=== PATIENT | female | born 1950 | race Caucasian/White ===

== ENCOUNTER 2020-02-23 06:19 | Outpatient (REF) | payer MEDICARE, SELFPAY ==
[2020-02-23 12:13] LABS: Alanine Aminotransferase 18 U/L (0-31); Albumin Level 4.1 g/dL (3.5-5.0); Alkaline Phosphatase 69 U/L (39-117); Anion Gap 14 (12-20); Aspartate Amino Transferase 15 U/L (5-31); Bilirubin Total 0.2 mg/dL (0.0-1.0); Blood Urea Nitrogen 15 mg/dL (9-16); Carbon Dioxide 27 mmol/L (22-29); Chloride 104 mmol/L (96-108); Cholesterol 202 mg/dL; Estimated Glomerular Filt Rate > 60; Glucose Fasting 152 mg/dL (60-99); HDL Cholesterol 55 mg/dL; LDL Cholesterol Calculated 119 mg/dl; Potassium 4.4 mmol/l (3.3-5.1); Sodium 141 mmol/L (135-145); Total Protein 6.9 g/dL (6.5-8.0); Triglycerides 140 mg/dL
[2020-02-23 12:19] LABS: Estimated Average Glucose 192 mg/dL; Hemoglobin A1c % 8.3 %
[2020-02-23 12:33] LABS: Creatinine Urine 31.28 mg/dL; Microalbum/Creatinine Ratio Ur 15.9 ug/mg cr
== END 2020-02-23 06:20 | disposition home or self-care (01) ==
LOC: HO.HMGCLDS 06:19
PROVIDERS: PCP Internal Medicine; Visit Provider Internal Medicine
DX: E11.9 Type 2 diabetes mellitus without complications (principal); E78.2 Mixed hyperlipidemia; I10 Essential (primary) hypertension
CPT/HCPCS: 80053; 80061; 82043; 83036

== ENCOUNTER 2020-10-29 16:30 | Outpatient (REF) | payer MEDICARE, SELFPAY ==
--- NOTE | ~2020-10-29 | XR_ITS ---
EXAMINATION: XR ANKLE, RIGHT. XR FOOT, RIGHT. CLINICAL INFORMATION: Right ankle and foot pain COMPARISON: None TECHNIQUE: 3 views of the right ankle. 3 views of the right foot. FINDINGS: There is a minimally displaced avulsion fracture at the base of the 5th metatarsal. The ankle mortise is preserved with no acute tibiotalar fracture. Mild degenerative changes of the 1st MTP joint and midfoot. Chronic degenerative calcification of the distal Achilles tendon with insertional enthesopathy. Prominent heel spur. XR/XR ankle RT min 3V IMPRESSION: Minimally displaced avulsion fracture at the base of the 5th metatarsal. No additional fractures.
--- NOTE | ~2020-10-29 | XR_ITS ---
EXAMINATION: XR ANKLE, RIGHT. XR FOOT, RIGHT. CLINICAL INFORMATION: Right ankle and foot pain COMPARISON: None TECHNIQUE: 3 views of the right ankle. 3 views of the right foot. FINDINGS: There is a minimally displaced avulsion fracture at the base of the 5th metatarsal. The ankle mortise is preserved with no acute tibiotalar fracture. Mild degenerative changes of the 1st MTP joint and midfoot. Chronic degenerative calcification of the distal Achilles tendon with insertional enthesopathy. Prominent heel spur. XR/XR foot RT min 3V IMPRESSION: Minimally displaced avulsion fracture at the base of the 5th metatarsal. No additional fractures.
== END 2020-10-29 16:31 | disposition home or self-care (01) ==
LOC: HO.HMGCX 16:30
PROVIDERS: PCP Internal Medicine; Visit Provider Hospitalist
DX: M25.571 Pain in right ankle and joints of right foot (principal)
CPT/HCPCS: 73610; 73630

== ENCOUNTER 2020-11-11 07:23 | Outpatient (REF) | payer MEDICARE, SELFPAY ==
[2020-11-11 11:43] LABS: Creatinine Urine 49.53 mg/dL; Microalbum/Creatinine Ratio Ur 62.5 ug/mg cr
[2020-11-11 11:52] LABS: Hematocrit 35.8 % (37-47); Hemoglobin 11.3 g/dl (12.0-16.0); Mean Corpuscular HGB Conc 31.6 g/dl (31.0-35.0); Mean Corpuscular Hemoglobin 27.5 pg (27.0-33.0); Mean Corpuscular Volume 87.1 fL (80-98); Mean Platelet Volume 11.2 fL (9.4-12.3); Platelet Count 219 X10*3/uL (160-400); Red Blood Count 4.11 X10*6/uL (4.20-5.50); Red Cell Distribution Width 12.8 % (11.0-16.0); White Blood Count 4.6 X10*3/uL (4.8-10.8)
[2020-11-11 11:55] LABS: Alanine Aminotransferase 16 U/L (0-31); Alkaline Phosphatase 72 U/L (39-117); Anion Gap 13 (12-20); Aspartate Amino Transferase 16 U/L (5-31); Bilirubin Total 0.5 mg/dL (0.0-1.0); Blood Urea Nitrogen 15 mg/dL (9-16); Calcium 9.8 mg/dL (8.4-10.2); Carbon Dioxide 24 mmol/L (22-29); Chloride 108 mmol/L (96-108); Cholesterol 202 mg/dL; Estimated Glomerular Filt Rate > 60; Glucose Fasting 113 mg/dL (60-99); HDL Cholesterol 51 mg/dL; LDL Cholesterol Calculated 121 mg/dl; Potassium 4.4 mmol/L (3.3-5.1); Sodium 141 mmol/L (135-145); Total Protein 6.7 g/dL (6.5-8.0); Triglycerides 152 mg/dL
[2020-11-11 11:56] LABS: Estimated Average Glucose 194 mg/dL; Hemoglobin A1c % 8.4 %
== END 2020-11-11 07:24 | disposition home or self-care (01) ==
LOC: HO.HMGCLDS 07:23
PROVIDERS: PCP Internal Medicine; Visit Provider Internal Medicine
DX: E11.9 Type 2 diabetes mellitus without complications (principal); E78.5 Hyperlipidemia, unspecified; I10 Essential (primary) hypertension
CPT/HCPCS: 36415; 80053; 80061; 82043; 83036; 85027

== ENCOUNTER 2021-02-04 12:27 | Outpatient (REF) | payer MEDICARE, SELFPAY ==
--- NOTE | ~2021-02-04 | MM_ITS ---
EXAMINATION: MM SCREENING DIGITAL BREAST TOMOSYNTHESIS, BILATERAL CLINICAL INFORMATION: Screening. Asymptomatic. The lifetime risk of breast cancer based on the Tyrer-Cuzick Model is 10%. COMPARISON: Mammography: December 23, 2013 and studies dating back to July 17, 2011 TECHNIQUE: Digital breast tomosynthesis is performed in both the craniocaudal and mediolateral oblique views along with computer-aided detection (CAD). Synthesized 2D images are generated from the tomosynthesis. FINDINGS: There are scattered areas of fibroglandular density (ACR BI-RADS breast composition Category b). There are no significant masses, abnormal calcifications, or other abnormalities. MM/MM tomosynthesis screening BI IMPRESSION: There are no significant changes from prior study. ASSESSMENT: BI-RADS 1: Negative RECOMMENDATION: Routine annual mammography screening. This patient's information was entered into a reminder system with a target due date for their next mammogram.
== END 2021-02-04 12:28 | disposition home or self-care (01) ==
LOC: HO.MAMMO 12:27
PROVIDERS: PCP Internal Medicine; Visit Provider Internal Medicine
DX: Z12.31 Encounter for screening mammogram for malignant neoplasm of breast (principal)
CPT/HCPCS: 77063; 77067

== ENCOUNTER 2021-02-07 08:54 | Outpatient (REF) | payer MEDICARE, SELFPAY ==
[2021-02-07 11:55] LABS: Estimated Average Glucose 186 mg/dL; Hemoglobin A1c % 8.1 %
[2021-02-07 12:11] LABS: Alanine Aminotransferase 17 U/L (0-31); Anion Gap 13 (12-20); Aspartate Amino Transferase 16 U/L (5-31); Bilirubin Total 0.6 mg/dL (0.0-1.0); Blood Urea Nitrogen 13 mg/dL (9-16); Calcium 9.5 mg/dL (8.4-10.2); Carbon Dioxide 26 mmol/L (22-29); Chloride 105 mmol/L (96-108); Cholesterol 222 mg/dL; Estimated Glomerular Filt Rate > 60; Glucose Fasting 166 mg/dL (60-99); Potassium 4.4 mmol/L (3.3-5.1); Sodium 140 mmol/L (135-145); Total Protein 6.8 g/dL (6.5-8.0); Triglycerides 180 mg/dL
[2021-02-07 12:12] LABS: Alkaline Phosphatase 63 U/L (39-117); HDL Cholesterol 53 mg/dL; LDL Cholesterol Calculated 133 mg/dl
[2021-02-07 12:15] LABS: TSH reflex Free T4 2.02 uIU/mL (0.32-4.0)
[2021-02-07 12:20] LABS: Creatinine Urine 42.01 mg/dL; Microalbum/Creatinine Ratio Ur 16.6 ug/mg cr
== END 2021-02-07 08:55 | disposition home or self-care (01) ==
LOC: HO.HMGCLDS 08:54
PROVIDERS: PCP Internal Medicine; Visit Provider Internal Medicine
DX: E11.9 Type 2 diabetes mellitus without complications (principal); E78.5 Hyperlipidemia, unspecified
CPT/HCPCS: 36415; 80053; 80061; 82043; 83036; 84443

== ENCOUNTER 2021-03-21 10:40 | Outpatient (REF) | payer MEDICARE, SELFPAY ==
--- NOTE | 2021-03-23 13:37 | MHC.AU.AHA ---
Adult Audiological Evaluation Date of Visit: 03/21/21 Reason for Appointment: History of hearing loss. Patient first noticed hearing difficulty approximately 8 years ago. There is an extensive family history of hearing loss. 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 History: No Medical History: Medical History: Diabetes Medication List: Metformin, Multivitamin, Vitamin C, Vitamin D3, Vitamin B12 Hearing Instrument History- Right Ear: Marketing Finance Specialist: [employer] Model: Nera2 Pro RITE Serial Number: [id number] Dispensed By: [facility] Hearing Instrument History- Left Ear: Marketing Finance Specialist: Oticon Model: Nera2 Pro RITE Serial Number: [id number] Dispensed By: [facility] Otoscopy: Right Ear: Unremarkable Left Ear: Unremarkable Hearing Evaluation: Transducer(s) Used: Insert Earphones Method: Conventional Audiometry Stimuli Used: Pure Tones Right Ear: Description of Hearing: Moderate to moderately-severe sensorineural hearing loss Left Ear: Description of Hearing: Mild to moderately-severe sensorineural hearing loss Speech Recognition Threshold (SRT): Method Used: Recorded Lists Stimuli Used: Spondee Words Right Ear: 45 dBHL Left Ear: 35 dBHL Word Discrimination: Method: Recorded Lists Word Lists Used: W-22 Right Ear: 88% at 75 dBHL Left Ear: 84% at 75 dBHL Most Comfortable Level (MCL): Right Ear: 75 dBHL Left Ear: 75 dBHL Recommendations: Audiological re-evaluation in one year. See Hearing Aid Follow-Up note for more information. Diagnosis: Primary Diagnosis: H90.3 Bilateral Sensorineural Hearing Loss Signature: Provider: Damari Lopez, CCC-A
--- NOTE | 2021-03-23 13:40 | MHC.AU.HFU ---
Hearing Instrument Follow-Up- Binaural Date of Visit: 03/21/21 Right Ear: Occupational Therapist Assistant: [employer]on Model: Nera2 Pro RITE Serial Number: [id number] Type of Dome: 8mm Goyal Double Vent Type of Wax Guard: MiniFit ProWax Dispensed By: [facility] Left Ear: Occupational Therapist Assistant: Oticon Model: Nera2 Pro RITE Serial Number: [id number] Type of Dome: 8mm Goyal Double Vent Type of Wax Guard: MiniFit ProWax Dispensed By: [facility] Follow-Up Summary: Patient was seen for an audiological evaluation. She formerly went to [facility]. She would like to transfer her hearing aid care to our clinic. She reports that she does not always wear the hearing aids consistently, but has been feeling she needs to wear them more often. She has custom canal lock molds that cause discomfort after wearing them for several hours. Custom molds were replaced with size 8mm goyal double vent domes. Patient reported the domes were much more comfortable. Current hearing aid programming was read into QThru and saved as a baseline. The hearing aid programming was then updated with today's hearing test results. Acoustic settings changed to reflect domes instead of molds. Patient was pleased with the adjustments. Recommendations: Hearing instrument follow-up or maintenance as needed. Please contact our clinic with any questions or concerns. Paid $185 transfer of care fee. Diagnosis Code(s): Primary Diagnosis: H90.3 Bilateral Sensorineural Hearing Loss Signature: Provider: Damari Lopez, SAGE-A
== END 2021-03-21 10:41 | disposition home or self-care (01) ==
LOC: HO.SH 10:40
PROVIDERS: Visit Provider Internal Medicine
DX: Z46.1 Encounter for fitting and adjustment of hearing aid (principal); H90.3 Sensorineural hearing loss, bilateral
CPT/HCPCS: 92557; V5011

== ENCOUNTER 2021-04-28 11:12 | Outpatient (REF) | payer MEDICARE, SELFPAY ==
[2021-04-28 14:31] LABS: Binax Internal Control QC Valid; Binax Lot number: 9864; Binax Now Covid-19 Ag Negative (Negative)
== END 2021-04-28 11:13 | disposition home or self-care (01) ==
LOC: HO.LAB 11:12
PROVIDERS: Visit Provider Internal Medicine
DX: Z20.822 Contact with and (suspected) exposure to COVID-19 (principal)
CPT/HCPCS: C9803

== ENCOUNTER 2021-04-29 08:39 | Outpatient (REF) | payer MEDICARE, SELFPAY ==
[2021-05-01 15:12] LABS: TS Negative Control Passed; TS Panel A 0; TS Panel B 0; TS Positive Control Passed; TSpotTB Negative (Negative)
== END 2021-04-29 08:40 | disposition home or self-care (01) ==
LOC: HO.HMGCLDS 08:39
PROVIDERS: PCP Internal Medicine; Visit Provider Internal Medicine
DX: Z00.00 Encounter for general adult medical examination without abnormal findings (principal); Z11.1 Encounter for screening for respiratory tuberculosis
CPT/HCPCS: 36415; 86481

== ENCOUNTER 2021-05-09 14:40 | Outpatient (REF) | payer MEDICARE, SELFPAY ==
--- NOTE | ~2021-05-09 | XR_ITS ---
EXAMINATION: XR CHEST CLINICAL INFORMATION: Pneumonia. Unspecified organism. COMPARISON: Chest 10/08/2018 TECHNIQUE: 2 views of the chest were obtained. FINDINGS: No significant abnormality is noted involving the heart, lungs, mediastinum, bony thorax or soft tissues. XR/XR chest 2V IMPRESSION: Platelike atelectasis right middle lobe.
== END 2021-05-09 14:41 | disposition home or self-care (01) ==
LOC: HO.HMGCX 14:40
PROVIDERS: PCP Internal Medicine; Visit Provider Internal Medicine
DX: J18.9 Pneumonia, unspecified organism (principal)
CPT/HCPCS: 71046

== ENCOUNTER 2021-05-24 08:49 | Outpatient (REF) | payer MEDICARE, SELFPAY ==
[2021-05-24 11:41] LABS: Hematocrit 35.3 % (37.0-47.0); Hemoglobin 11.1 g/dl (12.0-16.0); Mean Corpuscular HGB Conc 31.4 g/dl (31.0-35.0); Mean Corpuscular Hemoglobin 27.2 pg (27.0-33.0); Mean Corpuscular Volume 86.5 fL (80.0-98.0); Mean Platelet Volume 10.4 fL (9.4-12.3); Platelet Count 256 X10*3/uL (160-400); Red Blood Count 4.08 X10*6/uL (4.20-5.50); Red Cell Distribution Width 13.2 % (11.0-16.0); White Blood Count 3.8 X10*3/uL (4.8-10.8)
[2021-05-24 11:44] LABS: Estimated Average Glucose 192 mg/dL; Hemoglobin A1c % 8.3 %
[2021-05-24 12:05] LABS: Alanine Aminotransferase 16 U/L (0-31); Alkaline Phosphatase 60 U/L (39-117); Anion Gap 12 (12-20); Aspartate Amino Transferase 18 U/L (5-31); Bilirubin Total 0.8 mg/dL (0.0-1.0); Blood Urea Nitrogen 10 mg/dL (9-16); Calcium 9.4 mg/dL (8.4-10.2); Carbon Dioxide 27 mmol/L (22-29); Chloride 105 mmol/L (96-108); Cholesterol 239 mg/dL; Estimated Glomerular Filt Rate > 60; Glucose Fasting 138 mg/dL (60-99); HDL Cholesterol 51 mg/dL; LDL Cholesterol Calculated 153 mg/dl; Sodium 140 mmol/L (135-145); Total Protein 7.1 g/dL (6.5-8.0); Triglycerides 179 mg/dL
[2021-05-24 12:18] LABS: Creatinine Urine 12.92 mg/dL; Microalbumin Urine < 5.0 mg/L
== END 2021-05-24 08:50 | disposition home or self-care (01) ==
LOC: HO.HMGCLDS 08:49
PROVIDERS: Visit Provider Internal Medicine
DX: E78.5 Hyperlipidemia, unspecified (principal); E11.9 Type 2 diabetes mellitus without complications
CPT/HCPCS: 36415; 80053; 80061; 82043; 83036; 85027

== ENCOUNTER 2021-07-28 11:18 | Outpatient (REF) | payer SELFPAY | END 2021-07-28 11:19 | disposition home or self-care (01) | LOC: HO.HAP 11:18 | PROVIDERS: Visit Provider Internal Medicine | DX: Z46.1 Encounter for fitting and adjustment of hearing aid (principal) | CPT/HCPCS: V5267 ==

== ENCOUNTER 2022-02-13 06:35 | Outpatient (REF) | payer BC, SELFPAY ==
[2022-02-13 12:18] LABS: Alanine Aminotransferase 17 U/L (0-31); Albumin Level 4.1 g/dL (3.5-5.0); Alkaline Phosphatase 67 U/L (39-117); Anion Gap 16 (12-20); Aspartate Amino Transferase 16 U/L (5-31); Bilirubin Total 0.3 mg/dL (0.0-1.0); Blood Urea Nitrogen 14 mg/dL (9-16); Calcium 9.7 mg/dL (8.4-10.2); Carbon Dioxide 25 mmol/L (22-29); Chloride 106 mmol/L (96-108); Cholesterol 216 mg/dL; Estimated Glomerular Filt Rate > 60; Glucose Fasting 126 mg/dL (60-99); HDL Cholesterol 57 mg/dL; LDL Cholesterol Calculated 134 mg/dl; Potassium 4.3 mmol/L (3.3-5.1); Sodium 143 mmol/L (135-145); Triglycerides 126 mg/dL
[2022-02-13 12:30] LABS: Creatinine Urine 33.39 mg/dL; Microalbum/Creatinine Ratio Ur 14.9 ug/mg cr
[2022-02-13 12:32] LABS: Estimated Average Glucose 180 mg/dL; Hemoglobin A1c % 7.9 %
== END 2022-02-13 06:36 | disposition home or self-care (01) ==
LOC: HO.HMGCLDS 06:35
PROVIDERS: PCP Internal Medicine; Visit Provider Internal Medicine
DX: E11.9 Type 2 diabetes mellitus without complications (principal); E78.5 Hyperlipidemia, unspecified
CPT/HCPCS: 36415; 80053; 80061; 82043; 83036

== ENCOUNTER 2022-07-12 08:24 | Outpatient (REF) | payer BC, SELFPAY | END 2022-07-12 08:25 | disposition home or self-care (01) | LOC: HO.SH 08:24 | PROVIDERS: Visit Provider Internal Medicine | DX: Z01.118 Encounter for examination of ears and hearing with other abnormal findings (principal); H90.3 Sensorineural hearing loss, bilateral | CPT/HCPCS: 92557 ==

== ENCOUNTER 2022-07-12 09:22 | Outpatient (REF) | payer SELFPAY ==
--- NOTE | 2022-07-12 11:34 | MHC.AU.HFU ---
Hearing Instrument Follow-Up- Binaural Date of Visit: 07/12/22 Right Ear: Oticon Nera 2 Pro RITE, [id number] Repair Warranty: Loss and Damage Warranty: Battery Size: 312 Type of Dome: 8mm Goyal Double Vent (back up micromolds) Type of Wax Guard: MiniFit ProWax Dispensed By: [facility] Left Ear: Oticon Nera 2 Pro RITE, [id number] Repair Warranty: Loss and Damage Warranty: Battery Size: 312 Type of Dome: 8mm Goyal Double Vent (back up micromolds) Type of Wax Guard: MiniFit ProWax Dispensed By: [facility] Follow-Up Summary: Edwardo is here for a hearing aid check following an updated hearing evaluation. Hearing is stable bilaterally- see audiogram for report. Edwardo states one of her hearing aid domes fell off so she has been using her back up micro mold. She would like her hearing aids cleaned and checked. Programming is not needed as hearing is stable. I changed the domes, wax guards and brushed/cleaned the microphone ports and hearing aid casing bilaterally. Listening check reveals clear sound. The patient reported good sound bilaterally. No feedback noted. The patient paid $90 today ($50 for check and $40 for 4 packs of wax guards). The patient would also like a pack of domes but we are out of supply. I will order more 8mm double goyal domes from [employer]. and when they arrive our office will reach out to Edwardo for pick-up. Annual follow-up recommended, or sooner as needed. Diagnosis Code(s): Primary Diagnosis: H90.3 Bilateral Sensorineural Hearing Loss Signature: Provider: Susanne Parker, Damari, CCC-A
== END 2022-07-12 09:23 | disposition home or self-care (01) ==
LOC: HO.HAP 09:22
PROVIDERS: Visit Provider Internal Medicine
DX: Z46.1 Encounter for fitting and adjustment of hearing aid (principal); H90.3 Sensorineural hearing loss, bilateral
CPT/HCPCS: 92593; V5267

== ENCOUNTER 2022-07-18 13:24 | Outpatient (REF) | payer MEDICARE, SELFPAY ==
--- NOTE | ~2022-07-18 | MM_ITS ---
EXAMINATION: MM SCREENING DIGITAL BREAST TOMOSYNTHESIS, BILATERAL CLINICAL INFORMATION: Screening. Asymptomatic. The lifetime risk of breast cancer based on the Tyrer-Cuzick Model is 9%. COMPARISON: Mammography: 02/04/2021; outside mammography 12/23/2013, 08/19/2012 ([facility]) TECHNIQUE: Digital breast tomosynthesis is performed in both the craniocaudal and mediolateral oblique views along with computer-aided detection (CAD). Synthesized 2D images are generated from the tomosynthesis. FINDINGS: There are scattered areas of fibroglandular density (ACR BI-RADS breast composition Category b). There are no significant masses, abnormal calcifications, or other abnormalities. Parenchymal pattern is similar to prior studies. There is no developing density or architectural abnormality. The axilla and skin contours are unremarkable. No significant changes. MM/MM tomosynthesis screening BI IMPRESSION: No mammographic evidence of malignancy. ASSESSMENT: BI-RADS 1: Negative RECOMMENDATION: Routine annual mammography screening. This patient's information was entered into a reminder system with a target due date for their next mammogram.
== END 2022-07-18 13:25 | disposition home or self-care (01) ==
LOC: HO.MAMMO 13:24
PROVIDERS: PCP Internal Medicine; Visit Provider Internal Medicine
DX: Z12.31 Encounter for screening mammogram for malignant neoplasm of breast (principal)
CPT/HCPCS: 77063; 77067

== ENCOUNTER 2022-09-22 06:40 | Outpatient (REF) | payer MEDICARE, SELFPAY ==
[2022-09-22 12:00] LABS: Alanine Aminotransferase 16 U/L (0-31); Albumin Level 3.9 g/dL (3.5-5.0); Alkaline Phosphatase 60 U/L (39-117); Anion Gap 11 (12-20); Aspartate Amino Transferase 15 U/L (5-31); Bilirubin Total 0.6 mg/dL (0.0-1.0); Blood Urea Nitrogen 13 mg/dL (9-16); Calcium 9.5 mg/dL (8.4-10.2); Carbon Dioxide 28 mmol/L (22-29); Chloride 105 mmol/L (96-108); Cholesterol 214 mg/dL; Estimated Glomerular Filt Rate > 60; Glucose Fasting 142 mg/dL (60-99); HDL Cholesterol 56 mg/dL; LDL Cholesterol Calculated 131 mg/dl; Potassium 3.8 mmol/L (3.3-5.1); Sodium 140 mmol/L (135-145); Total Protein 6.7 g/dL (6.5-8.0); Triglycerides 136 mg/dL
[2022-09-22 12:09] LABS: Estimated Average Glucose 163 mg/dL; Hemoglobin A1c % 7.3 %
[2022-09-22 12:13] LABS: Creatinine Urine 23.39 mg/dL; Microalbumin Urine < 5.0 mg/L
== END 2022-09-22 06:41 | disposition home or self-care (01) ==
LOC: HO.HMGCLDS 06:40
PROVIDERS: PCP Internal Medicine; Visit Provider Internal Medicine
DX: E11.9 Type 2 diabetes mellitus without complications (principal); E78.5 Hyperlipidemia, unspecified
CPT/HCPCS: 36415; 80053; 80061; 82043; 83036

== ENCOUNTER 2023-03-15 09:43 | Outpatient (REF) | payer MEDICARE, SELFPAY ==
[2023-03-17 14:33] LABS: TS Negative Control Passed; TS Panel A 0; TS Panel B 0; TS Positive Control Passed; TSpotTB Negative (Negative)
== END 2023-03-15 09:44 | disposition home or self-care (01) ==
LOC: HO.HMGCLDS 09:43
PROVIDERS: PCP Internal Medicine; Visit Provider Internal Medicine
DX: Z00.00 Encounter for general adult medical examination without abnormal findings (principal); Z11.1 Encounter for screening for respiratory tuberculosis
CPT/HCPCS: 36415; 86481

== ENCOUNTER 2023-03-21 08:38 | Outpatient (REF) | payer MEDICARE, SELFPAY ==
[2023-03-21 11:19] LABS: MANUAL DIFF FLAG NO
[2023-03-21 11:35] LABS: Basophils Percent Auto 0.2 % (0-2); Eosinophils Absolute Auto 0.1 X10*3/uL (0.0-0.4); Eosinophils Percent Auto 1.6 % (0-4); Hematocrit 36.1 % (37.0-47.0); Hemoglobin 11.5 g/dl (12.0-16.0); Imm Gran Abs Auto 0.01 X10*3/uL (0.00-0.03); Imm Gran Pct Auto 0.2 % (0.0-0.4); Lymphocytes Absolute Auto 1.7 X10*3/uL (1.2-4.9); Lymphocytes Percent Auto 32.5 % (20-40); Mean Corpuscular HGB Conc 31.9 g/dl (31.0-35.0); Mean Corpuscular Hemoglobin 26.9 pg (27.0-33.0); Mean Corpuscular Volume 84.3 fL (80.0-98.0); Monocytes Absolute Auto 0.3 X10*3/uL (0.1-1.2); Monocytes Percent Auto 5.1 % (2-11); Neutrophils Absolute Auto 3.1 x10*3/uL (2.0-8.3); Neutrophils Percent Auto 60.4 % (45-73); Platelet Count 208 X10*3/uL (160-400); Red Blood Count 4.28 X10*6/uL (4.20-5.50); Red Cell Distribution Width 13.5 % (11.0-16.0); White Blood Count 5.1 X10*3/uL (4.8-10.8)
[2023-03-21 11:43] LABS: Estimated Average Glucose 197 mg/dL; Hemoglobin A1c % 8.5 % (<6.0)
[2023-03-21 11:57] LABS: Creatinine Urine 14.96 mg/dL; Microalbum/Creatinine Ratio Ur 33.4 ug/mg cr (<30)
[2023-03-21 11:59] LABS: Alanine Aminotransferase 17 U/L (0-31); Albumin Level 3.9 g/dL (3.5-5.0); Alkaline Phosphatase 66 U/L (39-117); Anion Gap 13 (12-20); Aspartate Amino Transferase 17 U/L (5-31); Bilirubin Total 0.4 mg/dL (0.0-1.0); Blood Urea Nitrogen 15 mg/dL (9-16); Calcium 9.3 mg/dL (8.4-10.2); Carbon Dioxide 24 mmol/L (22-29); Chloride 107 mmol/L (96-108); Cholesterol 208 mg/dL (<200); Estimated Glomerular Filt Rate > 60; Glucose Fasting 154 mg/dL (60-99); HDL Cholesterol 58 mg/dL (>40); LDL Cholesterol Calculated 121 mg/dL (<100); Potassium 4.2 mmol/L (3.3-5.1); Sodium 140 mmol/L (135-145); Triglycerides 148 mg/dL (<150)
== END 2023-03-21 08:39 | disposition home or self-care (01) ==
LOC: HO.HMGCLDS 08:38
PROVIDERS: PCP Internal Medicine; Visit Provider Internal Medicine
DX: Z00.00 Encounter for general adult medical examination without abnormal findings (principal); E11.9 Type 2 diabetes mellitus without complications; E78.5 Hyperlipidemia, unspecified
CPT/HCPCS: 36415; 80053; 80061; 82043; 82570; 83036; 85025

== ENCOUNTER 2023-03-22 08:08 | Outpatient (AMB) | payer MEDICARE, SELFPAY ==
[2023-03-22 08:13] VITALS: BP 124/66; PULSE 89; O2SAT 99; BMI 27.3
--- NOTE | 2023-03-22 08:13 | MHC.PC.OV ---
Vital Signs 03/22/23 08:13 Height 5 ft Weight 140 lb BMI 27.3 BP 124/66 Blood Pressure Location Rt brachial Position Sitting Pulse 89 Pulse Source Pulse Oximeter Pulse Oximetry (%) 99 Oxygen Delivery Method Room Air Intake Visit Reasons: f/u DM Intake Note: Pt is here today for a follow up visit on DM. Pt c/o R leg swelling and lower back pain. Pt states that she would like to have a script send to the pharmacy for the whole kit for her DM supplies. Allergies losartan Allergy (Unknown, Verified 03/22/23 08:20) cough, URI, cough atorvastatin Adverse Reaction (Intermediate, Verified 03/22/23 08:20) Joint Pain simvastatin Adverse Reaction (Intermediate, Verified 03/22/23 08:20) Muscle cramps Medication List - Last Reconciled 03/22/23 by Mery Franco MD albuterol sulfate 90 mcg/actuation 2 puffs inhalation Q6H PRN albuterol sulfate 90 mcg/actuation 2 puffs PO QID ibuprofen 600 mg PO TID lancets (OneTouch Delica Plus Lancet) test blood sugar once a day metformin ER 1,000 mg (2 x 500 mg) PO BID metronidazole 0.75% (MetroCream) 1 appl topical BEDTIME OneTouch Verio test strips (blood sugar diagnostic) test blood sugar once a day NS Tobacco use date assessed: 03/22/23 Dental Screening Dental Screen Date: 03/22/23 Did you have a dental visit in the last 12 months?: Yes Did you have a dental problem in the last 6 months where you did not have access to dental care?: No Was dental information given to patient?: Patient has dentist HPI f/u DM HPI Details Pt presents for f/u DM 2. Pt c/o LBP radiating to RLE for 3 weeks, started after helping her sister with a left-sided weakness in the shower. Patient denies any weakness or numbness in extremities or change in bowel or bladder function. She reports intermittent right knee pain when walking but not at rest. [facility] Medical History Annual physical exam Chronic asthma Colon cancer screening Diabetes Diabetic eye exam Hearing difficulty History of mammogram Hyperlipidemia Lumbar degenerative disc disease Surgical History H/O colonoscopy No pertinent past surgical history Family History Father Lung cancer Lymphoma Esophageal cancer Smoker Brother Cancer of prostate Sister Breast cancer Social History Housing: House Alcohol intake: current Alcohol intake frequency: holidays/special occasions only Patient Tobacco Use Status: Never used Tobacco e-Cigarette/Vaping Use: Never Used Second Hand Smoke Exposure: Yes Current occupational status: retired Cognitive needs: No Hearing needs: No Vision needs: No Questionnaire Thrive Questionnaire Date Thrive assessed: 02/14/22 BENJY-7 AMB Questionnaire BENJY-7 Date BENJY - 7 assessed: 02/14/22 Source: Developed by Drs. Adolfo Hilliard, Izzy Monet, Giuseppe Arteaga and colleagues, with an educational regla from [employer]. Review of Systems Const All systems reviewed & are unremarkable except as noted in HPI and below Reports no additional complaints Eyes Reports no additional complaints ENT Reports no additional complaints Card Reports no additional complaints Resp Reports no additional complaints GI Reports no additional complaints Reports no additional complaints Physical exam (Primary Care) Vital Signs: Last Vital Signs Pulse 89 03/22/23 08:13 BP 124/66 03/22/23 08:13 Pulse Ox 99 03/22/23 08:13 Oxygen Delivery Method Room Air 03/22/23 08:13 BMI result Body Mass Index 27.3 Tobacco/Smoking Status: Tobacco use Status Tobacco use date assessed 03/22/23 03/22/23 08:21 Patient Tobacco Use Status Never used Tobacco 03/22/23 08:21 e-Cigarette/Vaping Use Never Used 03/22/23 08:21 Thrive Assessment: Date of Thrive Assessment Date Thrive assessed 02/14/22 03/22/23 08:21 Const General: no acute distress HENMT General nose exam: Normal external nose present Face and sinus: Yes normal facial exam Mouth: Normal oral and palatal mucosa present Eyes General: appearance normal, both eyes and all related structures Neck Neck: Yes no meningeal signs and Yes supple Resp Effort & Inspection: normal respiratory effort Auscultation: clear to auscultation bilaterally Cardio Rhythm: regular rhythm Heart sounds: S1 normal heart sound present and S2 normal heart sound present GI Inspection: Yes normal to inspection Palpation (GI): Soft to palpation Percussion: Yes normal to percussion Auscultation: normal bowel sounds Back/Spine/Pelvis Other: Decreased range of motion in lumbar spine paraspinal tenderness right more than left, straight leg rising 90 degrees bilaterally. Motor strength 5/5 bilaterally Neuro General: no meningeal signs Assessment and Plan Assessment & Plan (1) Lumbar degenerative disc disease: Code(s): M51.36 - Other intervertebral disc degeneration, lumbar region Plan: Referred to physical therapy continue ibuprofen as needed (2) Diabetes: Code(s): E11.9 - Type 2 diabetes mellitus without complications Plan: A1c is 8.5 from 7.3, ADA diet increase physical activity medication complains discussed with the patient. She refused to take additional medications for diabetes. Patient will follow-up in 3 months with a fasting labs before (3) Hyperlipidemia: Comment: pt intolerant to statin Code(s): E78.5 - Hyperlipidemia, unspecified Plan: Continue low-cholesterol diet Orders: Orders Comprehensive [place]. Panel Fast 3 Months E11.9 - Type 2 diabetes mellitus without complications, E78.5 - Hyperlipidemia, unspecified Lipid Panel 3 Months E11.9 - Type 2 diabetes mellitus without complications, E78.5 - Hyperlipidemia, unspecified Microalbumin, Random (w Creat) 3 Months E11.9 - Type 2 diabetes mellitus without complications, E78.5 - Hyperlipidemia, unspecified PT Evaluation and Treatment Today M51.36 - Other intervertebral disc degeneration, lumbar region Complete Blood Count Auto Diff 3 Months E11.9 - Type 2 diabetes mellitus without complications, E78.5 - Hyperlipidemia, unspecified Medications: New lancets As directed 100 ea 2RF Discontinued lancets (OneTouch Delica Plus Lancet) Discontinued Reason: Doctor's Order test blood sugar once a day 100 ea 3RF E11.9 - Type 2 diabetes mellitus without complications Coding Level of Care Code Est Pt Level 4 (31513) Diagnoses Lumbar degenerative disc disease M51.36 Diabetes E11.9 Hyperlipidemia E78.5
== END 2023-03-22 10:17 | disposition home or self-care (01) ==
PROVIDERS: PCP Internal Medicine; Visit Provider Internal Medicine
DX: M51.36 Other intervertebral disc degeneration, lumbar region (principal); E11.9 Type 2 diabetes mellitus without complications; E78.5 Hyperlipidemia, unspecified
CPT/HCPCS: 99214

== ENCOUNTER 2023-04-18 09:00 | Outpatient (RCR) | payer MEDICARE, SELFPAY ==
--- NOTE | 2023-03-23 13:53 | MHC.PT.EP ---
[facility] [place] Office [place] Office [place] Office [address] Sandeep Daily [address] [phone] F: [phone] F: [phone] F: [phone] F: [phone] Physical Therapy Plan of Care Date of Evaluation: 03/23/23 Date of Surgery: none Diagnosis: Lumbar degenerative disc disease. Assessment: Patient is a 72 year old R handed female who presents with s/s consistent with low back pain, lumbar degenerative disc disease. She does not work and lives a fairly sedentary life overall. Patient past medical history includes chronic pain and DM. Current impairments include pain, posture, ROM, strength, flexibility, activity tolerance and functional mobility. Functional limitations include decreased ability to transfer, walk, stand, push, pull, squat, dress, negotiate stairs, lift, and perform tasks around the house. Patient is motivated with good rehab potential. Skilled PT will address impairments and functional limitations in order to achieve goals. Frequency and Duration: The patient will be seen 2x/week for 5 weeks Short Term Goals: I with HEP - 2 weeks AROM 75% pain free - all directions - 3 weeks Able to walk > 10 minutes, negotiate 1 flight of stairs pain free - 3 weeks [employer] Worker Goals: Oswestry 20% or better - 5 weeks LE strength 4/5 grossly - 5 weeks TTP absent - 5 weeks Max pain with ADLs 3/10 - 5 weeks Treatment Plan: Modalities to reduce pain, spasms and effusion. Manual therapy to restore motion and function. Therapeutic exercise to improve strength and flexibility. Neuromuscular re-education for posture and balance. Therapeutic activities to return to functional activities of daily living. Electronically signed by: Chava Chatman, PT Please sign and return to therapist. Thank you for your referral.
--- NOTE | 2024-01-23 08:38 | MHC.PT.DC ---
[facility] [place] Office [place] [facility] [place] [facility] [address] Sandeep Daily [address] [phone] F: [phone] F: [phone] F: [phone] F: [phone] Physical Therapy Discharge Report Diagnosis: Lumbar degenerative disc disease. Date of Surgery: none Date of Evaluation: 03/23/23 Date of Discharge: 05/08/23 Treatments to Date: 6 Cancellations to Date: No Shows to Date: Discharge Status: Independent with HEP Discharge Summary: 04/18/23: pt has been feeling sick for 2 weeks. returns today and able to resume program. no adverse reactions. min s/s at end of treatment. 04/04/23: pt progressing well. still with less pain and responding well to current program. 04/02/23: pt progressing well with skilled PT. no adverse reactions from program. we continue to add each visit without adverse reactions. 03/28/23: pt reports noting she overdid it yesterday and is sore today. we held on progression as a result. she has been compliant with HEP. 03/26/23: pt progressing well with skilled PT. we added strength/stretching today without adverse reactions. she has been compliant with HEP. Patient is a 72 year old R handed female who presents with s/s consistent with low back pain, lumbar degenerative disc disease. She does not work and lives a fairly sedentary life overall. Patient past medical history includes chronic pain and DM. Current impairments include pain, posture, ROM, strength, flexibility, activity tolerance and functional mobility. Functional limitations include decreased ability to transfer, walk, stand, push, pull, squat, dress, negotiate stairs, lift, and perform tasks around the house. Patient is motivated with good rehab potential. Skilled PT will address impairments and functional limitations in order to achieve goals. Electronically signed by: Chava Chatman, PT Please sign and return to therapist. Thank you for your referral.
== END 2024-01-23 08:38 | disposition home or self-care (01) ==
LOC: HO.PTCHIC 09:00
PROVIDERS: PCP Internal Medicine; Visit Provider Internal Medicine
DX: M51.36 Other intervertebral disc degeneration, lumbar region (principal)
CPT/HCPCS: 97110; 97162

== ENCOUNTER 2023-06-05 15:05 | Outpatient (REF) | payer SELFPAY | END 2023-06-05 15:06 | disposition home or self-care (01) | LOC: HO.HAP 15:05 | PROVIDERS: Visit Provider Internal Medicine | DX: Z13.89 Encounter for screening for other disorder (principal) ==

== ENCOUNTER 2023-06-05 15:08 | Outpatient (REF) | payer SELFPAY | END 2023-06-05 15:09 | disposition home or self-care (01) | LOC: HO.HAP 15:08 | PROVIDERS: Visit Provider Internal Medicine | DX: Z46.1 Encounter for fitting and adjustment of hearing aid (principal); H90.3 Sensorineural hearing loss, bilateral | CPT/HCPCS: V5267 ==

== ENCOUNTER 2023-06-13 11:06 | Outpatient (REF) | payer SELFPAY | END 2023-06-13 11:07 | disposition home or self-care (01) | LOC: HO.HAP 11:06 | PROVIDERS: Visit Provider Internal Medicine | DX: Z46.1 Encounter for fitting and adjustment of hearing aid (principal); H90.3 Sensorineural hearing loss, bilateral | CPT/HCPCS: V5299 ==

== ENCOUNTER 2023-08-01 09:02 | Outpatient (REF) | payer MEDICARE, SELFPAY | END 2023-08-01 09:03 | disposition home or self-care (01) | LOC: HO.MAMMO 09:02 | PROVIDERS: PCP Internal Medicine; Visit Provider Internal Medicine | DX: Z12.31 Encounter for screening mammogram for malignant neoplasm of breast (principal) | CPT/HCPCS: 77063; 77067 ==

== ENCOUNTER → 2023-08-01 09:15 | Outpatient (BNV) | payer MEDICARE, SELFPAY | PROVIDERS: PCP Internal Medicine; Visit Provider Radiology Diagnostic Radiology | DX: Z12.31 Encounter for screening mammogram for malignant neoplasm of breast (principal) | CPT/HCPCS: 77063; 77067 ==

== ENCOUNTER 2023-08-06 08:35 | Outpatient (AMB) | payer MEDICARE, SELFPAY ==
--- NOTE | 2023-08-06 08:37 | AM.OFFWIN_ITS ---
Intake Vital Signs 08/06/23 08:38 Height 5 ft Weight 146 lb BMI 28.5 BP 130/80 Blood Pressure Location Lt brachial Position Sitting Pulse 98 Pulse Source Pulse Oximeter Temp 97.2 F Temp Source Temporal Artery Scan Pulse Oximetry (%) 99 Oxygen Delivery Method Room Air Intake Visit Reasons: EP RT ear/throat pain (lobby) Intake Note: pt is here today for rt ear throat pain started 4 days ago Patient Tobacco Use Status: Never used Tobacco Allergies losartan Allergy (Unknown, Verified 08/06/23 09:10) cough, URI, cough atorvastatin Adverse Reaction (Intermediate, Verified 08/06/23 09:10) Joint Pain simvastatin Adverse Reaction (Intermediate, Verified 08/06/23 09:10) Muscle cramps Medication List - Last Reconciled 08/06/23 by Milton Luque MD albuterol sulfate 90 mcg/actuation 2 puffs inhalation Q6H PRN albuterol sulfate 90 mcg/actuation 2 puffs PO QID lancets As directed metformin ER 1,000 mg (2 x 500 mg) PO BID metronidazole 0.75% (MetroCream) 1 appl topical BEDTIME OneTouch Verio test strips (blood sugar diagnostic) test blood sugar once a day NS Do you need a note to return to daycare/school/sports/work: No HPI EP RT ear/throat pain (lobby) HPI Details 73-year-old female presents to the [facility] for a sick visit. Patient is complaining of pain in the right ear for the past 2 days. Throbbing in nature. No fevers or chills. [facility] Medical History Annual physical exam Chronic asthma Colon cancer screening Diabetes Diabetic eye exam Hearing difficulty History of mammogram Hyperlipidemia Lumbar degenerative disc disease Surgical History H/O colonoscopy No pertinent past surgical history Family History Father Lung cancer Lymphoma Esophageal cancer Smoker Brother Cancer of prostate Sister Breast cancer Social History Housing: House Alcohol intake: current Alcohol intake frequency: holidays/special occasions only Patient Tobacco Use Status: Never used Tobacco e-Cigarette/Vaping Use: Never Used Second Hand Smoke Exposure: Yes Current occupational status: retired Cognitive needs: No Hearing needs: No Vision needs: No Physical Exam Vital Signs: Last Vital Signs Temp 97.2 F 08/06/23 08:38 Pulse 98 08/06/23 08:38 BP 130/80 08/06/23 08:38 Pulse Ox 99 08/06/23 08:38 Oxygen Delivery Method Room Air 08/06/23 08:38 BMI result Body Mass Index 28.5 Const General: cooperative and healthy appearing Nutritional Appearance: well nourished Orientation/consciousness: patient oriented x3 Limitations: no limitations HEENT Other: Right ear canal congested, tympanic membrane is dull. Head: Yes normal to inspection Eyes General: appearance normal, both eyes and all related structures Neck Other: Right submandibular area is tender to palpate. Neck: Yes normal visual inspection Chest Chest palpation & inspection: normal palpation of entire chest wall Resp Effort & Inspection: normal respiratory effort Neuro General: patient oriented x3 Results AMB Rapid Strep AMB Rapid Strep Negative Last Edit by Marco Salguero MA on 08/06/23 09:08 Results Reviewed Results Reviewed: Laboratory Last Values Strep Scn Rapid Clinic Negative 08/06/23 09:06 Assessment & Plan Assessment & Plan (1) Upper respiratory tract infection: Code(s): J06.9 - Acute upper respiratory infection, unspecified Plan: Amoxicillin called in. Patient was advised to take [id number] Tylenol. If symptoms do not improve to follow-up here. Coding Level of Care Code Est Pt Level 3 (45617) Diagnoses Upper respiratory tract infection J06.9
[2023-08-06 08:38] VITALS: BP 130/80; PULSE 98; TEMP 36.2; O2SAT 99; BMI 28.5
== END 2023-08-06 09:59 | disposition home or self-care (01) ==
PROVIDERS: PCP Internal Medicine; Visit Provider Internal Medicine
DX: J06.9 Acute upper respiratory infection, unspecified (principal)
CPT/HCPCS: 99213

== ENCOUNTER 2023-08-13 11:07 | Outpatient (AMB) | payer MEDICARE, SELFPAY ==
--- NOTE | 2023-08-13 12:12 | AM.OFFWIN_ITS ---
Intake Vital Signs 08/13/23 12:15 Height 5 ft Weight 146 lb BMI 28.5 BP 150/88 H Blood Pressure Location Lt brachial Position Sitting Pulse 111 H Pulse Source Pulse Oximeter Temp 98.3 F Temp Source Temporal Artery Scan Pulse Oximetry (%) 98 Oxygen Delivery Method Room Air Intake Visit Reasons: EP Chest congestion, cold blisters [phone] Intake Note: Pt presents to the office today for c/o fever blisters, deep cough, and sinus congestion. She states she was seen here last sunday at the walk in and was given amoxicillin. Patient Tobacco Use Status: Never used Tobacco Allergies losartan Allergy (Unknown, Verified 08/13/23 12:13) cough, URI, cough atorvastatin Adverse Reaction (Intermediate, Verified 08/13/23 12:13) Joint Pain simvastatin Adverse Reaction (Intermediate, Verified 08/13/23 12:13) Muscle cramps HPI HPI Comments History of Present Illness Details Patient presents to the walk in for 11 days cough Was seen here 1 week ago for URI symptoms, prescribed amoxicillin but reports her cough persists Patient concerned she has pneumonia Denies fever, chest pain, palpitations, syncope, weakness Denies headache, ear pain, sore throat. Patient has used albuterol inhaler in the past, last time was several years ago. [facility] Medical History Annual physical exam Colon cancer screening Hearing difficulty Hyperlipidemia Lumbar degenerative disc disease Chronic asthma Diabetic eye exam History of mammogram Diabetes Surgical History H/O colonoscopy No pertinent past surgical history Family History Father Lung cancer Lymphoma Esophageal cancer Smoker Brother Cancer of prostate Sister Breast cancer Social History Housing: House Alcohol intake: current Alcohol intake frequency: holidays/special occasions only Patient Tobacco Use Status: Never used Tobacco e-Cigarette/Vaping Use: Never Used Second Hand Smoke Exposure: Yes Current occupational status: retired Cognitive needs: No Hearing needs: No Vision needs: No Review of Systems Const All systems reviewed & are unremarkable except as noted in HPI and below Physical Exam Vital Signs: Last Vital Signs Temp 98.3 F 08/13/23 12:15 Pulse 111 H 08/13/23 12:15 BP 150/88 H 08/13/23 12:15 Pulse Ox 98 08/13/23 12:15 Oxygen Delivery Method Room Air 08/13/23 12:15 BMI result Body Mass Index 28.5 General: awake, alert, oriented. Answers questions appropriately. Fully engaged in examination. Skin: warm, dry, intact HEENT: TMs intact bilaterally, no redness. Posterior pharynx without erythema or exudate. Sclera without icterus or injection. Cardiac: External chest normal in appearance. Respiratory: +cough. RUL/RML inspiratory wheezing Abdomen: without gross distension. Neurological: Oriented to person, place, time and situation. Thought process intact. Psychiatric: Appropriate mood and affect. Good judgment and insight. Results Reviewed Results Reviewed: Chest x-ray ordered independently reviewed: No effusion or infiltrate identified Assessment & Plan Assessment & Plan (1) Cough: Code(s): R05.9 - Cough, unspecified Plan URI, no abx warranted. Offered albuterol updraft in office, patient declined. Albuterol MDI as directed. Patient states that she is familiar with the use Discussed prednisone, patient reports she does not tolerate it and declines prescription Discussed Benzonatate, patient since she has tried in the past and they do not work Rest, drink plenty of fluids, tylenol or motrin as needed. Recommend taking OTC nasal decongestants, discuss with pharmacist options for heart safe options. Follow up with pcp or in clinic for any new or worsening symptoms. Go to ER for shortness of breath, chest pain, palpitations, weakness, dizziness. Orders: Orders XR chest 2V Today R05.9 - Cough, unspecified Medications: Refilled albuterol sulfate 90 mcg/actuation 2 puffs inhalation Q6H PRN 8.5 grams 0RF shortness of breath or wheezing Coding Level of Care Code Est Pt Level 4 (43464) Diagnoses Cough R05.9
[2023-08-13 12:15] VITALS: BP 150/88; PULSE 111; TEMP 36.8; O2SAT 98; BMI 28.5
== END 2023-08-13 14:33 | disposition home or self-care (01) ==
PROVIDERS: PCP Internal Medicine; Visit Provider Registered Nurse Emergency
DX: R05.9 Cough, unspecified (principal)
CPT/HCPCS: 99214

== ENCOUNTER 2023-08-13 13:17 | Outpatient (REF) | payer MEDICARE, SELFPAY ==
--- NOTE | ~2023-08-13 | XR_ITS ---
EXAMINATION: XR CHEST CLINICAL INFORMATION: Cough. COMPARISON: Chest radiograph dated 05/09/2021. TECHNIQUE: 2 views of the chest were obtained. FINDINGS: Heart size is normal. The lungs are clear. There is no pleural effusion or pneumothorax. No acute osseous abnormality. There are surgical clips overlying the right upper quadrant. XR/XR chest 2V IMPRESSION: No acute cardiopulmonary disease.
== END 2023-08-13 13:18 | disposition home or self-care (01) ==
LOC: HO.HMGCX 13:17
PROVIDERS: PCP Internal Medicine; Visit Provider Registered Nurse Emergency
DX: R05.9 Cough, unspecified (principal)
CPT/HCPCS: 71046

== ENCOUNTER 2023-10-08 13:38 | Outpatient (REF) | payer SELFPAY | END 2023-10-08 13:39 | disposition home or self-care (01) | LOC: HO.HAP 13:38 | PROVIDERS: Visit Provider Internal Medicine | DX: Z46.1 Encounter for fitting and adjustment of hearing aid (principal); H90.3 Sensorineural hearing loss, bilateral | CPT/HCPCS: V5299 ==

== ENCOUNTER 2023-12-27 08:24 | Outpatient (REF) | payer MEDICARE, SELFPAY ==
[2023-12-27 10:05] LABS: MANUAL DIFF FLAG NO
[2023-12-27 10:32] LABS: Alanine Aminotransferase 20 U/L (0-31); Albumin Level 3.9 g/dL (3.5-5.0); Alkaline Phosphatase 62 U/L (39-117); Anion Gap 12 (12-20); Aspartate Amino Transferase 17 U/L (5-31); Bilirubin Total 0.4 mg/dL (0.0-1.0); Blood Urea Nitrogen 11 mg/dL (9-16); Calcium 9.6 mg/dL (8.4-10.2); Carbon Dioxide 25 mmol/L (22-29); Chloride 109 mmol/L (96-108); Cholesterol 179 mg/dL (<200); Estimated Glomerular Filt Rate > 60; Glucose Fasting 140 mg/dL (60-99); HDL Cholesterol 56 mg/dL (>40); LDL Cholesterol Calculated 103 mg/dL (<100); Potassium 4.1 mmol/L (3.3-5.1); Sodium 142 mmol/L (135-145); Total Protein 6.8 g/dL (6.5-8.0); Triglycerides 101 mg/dL (<150)
[2023-12-27 10:37] LABS: Creatinine Urine 47.05 mg/dL
[2023-12-27 10:44] LABS: Basophils Percent Auto 0.4 % (0-2); Eosinophils Absolute Auto 0.1 X10*3/uL (0.0-0.4); Eosinophils Percent Auto 2.6 % (0-4); Hematocrit 33.2 % (37.0-47.0); Hemoglobin 10.4 g/dl (12.0-16.0); Imm Gran Abs Auto 0.02 X10*3/uL (0.00-0.03); Imm Gran Pct Auto 0.4 % (0.0-0.4); Lymphocytes Absolute Auto 1.7 X10*3/uL (1.2-4.9); Lymphocytes Percent Auto 33.5 % (20-40); Mean Corpuscular HGB Conc 31.3 g/dl (31.0-35.0); Mean Corpuscular Hemoglobin 25.5 pg (27.0-33.0); Mean Corpuscular Volume 81.4 fL (80.0-98.0); Monocytes Absolute Auto 0.3 X10*3/uL (0.1-1.2); Monocytes Percent Auto 6.1 % (2-11); Neutrophils Absolute Auto 2.9 x10*3/uL (2.0-8.3); Platelet Count 215 X10*3/uL (160-400); Red Blood Count 4.08 X10*6/uL (4.20-5.50); Red Cell Distribution Width 14.6 % (11.0-16.0); White Blood Count 5.1 X10*3/uL (4.8-10.8)
== END 2023-12-27 08:25 | disposition home or self-care (01) ==
LOC: HO.HMGCLDS 08:24
PROVIDERS: PCP Internal Medicine; Visit Provider Internal Medicine
DX: E11.9 Type 2 diabetes mellitus without complications (principal); E78.5 Hyperlipidemia, unspecified
CPT/HCPCS: 36415; 80053; 80061; 82043; 82570; 85025

== ENCOUNTER 2023-12-28 09:46 | Outpatient (AMB) | payer MEDICARE, SELFPAY ==
[2023-12-28 09:47] VITALS: BP 126/64; PULSE 89; O2SAT 98; BMI 27.5
--- NOTE | 2023-12-28 09:47 | A.OFFPC_ITS ---
Vital Signs 12/28/23 09:47 Height 5 ft Weight 141 lb BMI 27.5 BP 126/64 Blood Pressure Location Rt brachial Position Sitting Pulse 89 Pulse Source Pulse Oximeter Pulse Oximetry (%) 98 Oxygen Delivery Method Room Air Intake Visit Reasons: PE Intake Note: Pt is here today for PE. Allergies losartan Allergy (Unknown, Verified 12/28/23 09:52) cough, URI, cough atorvastatin Adverse Reaction (Intermediate, Verified 12/28/23 09:52) Joint Pain simvastatin Adverse Reaction (Intermediate, Verified 12/28/23 09:52) Muscle cramps Medication List - Last Reconciled 12/28/23 by Mery Franco MD albuterol sulfate 90 mcg/actuation 2 puffs inhalation Q6H PRN aspirin 81 mg PO DAILY lancets As directed metformin ER 1,000 mg (2 x 500 mg) PO BID metronidazole 0.75% (MetroCream) 1 appl topical BEDTIME OneTouch Verio test strips (blood sugar diagnostic) test blood sugar once a day NS Tobacco use date assessed: 12/28/23 Fall risk assessment: 1 Fall in past year Last assessed Fall Risk: 12/28/23 Dental Screening Dental Screen Date: 12/28/23 Did you have a dental visit in the last 12 months?: Yes Did you have a dental problem in the last 6 months where you did not have access to dental care?: No Was dental information given to patient?: Patient has dentist HPI PE HPI Details Pt presents for PE. Patient reports improving fasting blood glucose readings down to 120 for the last few weeks. She had elevated glucose 2 months ago up to 200's. [facility] Medical History Annual physical exam Colon cancer screening Hearing difficulty Hyperlipidemia Lumbar degenerative disc disease Chronic asthma Diabetic eye exam History of mammogram Diabetes Surgical History H/O colonoscopy No pertinent past surgical history Family History Father Lung cancer Lymphoma Esophageal cancer Smoker Brother Cancer of prostate Sister Breast cancer Social History Housing: House Alcohol intake: current Alcohol intake frequency: holidays/special occasions only Patient Tobacco Use Status: Never used Tobacco e-Cigarette/Vaping Use: Never Used Second Hand Smoke Exposure: Yes service: No Current occupational status: retired Cognitive needs: No Hearing needs: No Vision needs: No Questionnaire PHQ-9 Over the last 2 weeks, how often have you been bothered by any of the following problems? 1. Little interest or pleasure in doing things: not at all 2. Feeling down, depressed, or hopeless: not at all 3. Trouble falling or staying asleep, or sleeping too much: not at all 4. Feeling tired or having little energy: not at all 5. Poor appetite or overeating: not at all 6. Feeling bad about yourself - or that you are a failure or have let yourself or your family down: not at all 7. Trouble concentrating on things, such as reading the newspaper or watching television: not at all 8. Moving or speaking so slowly that other people could have noticed. Or the opposite - being so fidgety or restless that you have been moving around a lot more than usual: not at all 9. Thoughts that you would be better off or of hurting yourself in some way: not at all Total score: 0 Depression Screening Interpretation: Negative Depression Screening Done: Yes 84370 - PHQ-9 Billing: Yes Source: Developed by Drs. Adolfo Hilliard, Izzy Monet, Giuseppe Arteaga and colleagues, with an educational regla from [employer]. Thrive Questionnaire Date Thrive assessed: 12/28/23 I am a: Patient What is your living situation today?: I have a steady place to live Within the past 12 months, did the food you bought not last and you didn't have the money to get more?: Never true Within the past 12 months, did you worry whether your food would run out before you got money to buy more?: Never true Do you have trouble paying for medicines?: No Do you have trouble getting transportation to medical appointments?: No Do you have trouble paying your heating and electricity bill?: No Do you have trouble taking care of your child, family member or friend?: No Do you have trouble with day-to-day activities such as bathing, preparing meals, shopping, managing finances, etc.?: No Are you currently unemployed and looking for a job?: No Are you interested in more education?: No Please select the resources that you would like help with: None THRIVE Score: 0 AUDIT C Alcohol Use Questionnaire (AUDIT-C) 1. How often do you have a drink containing alcohol?: Never 3. How often do you have six or more drinks on one occasion?: Never Total Score: 0 BENJY-7 AMB Questionnaire BENJY-7 Date BENJY - 7 assessed: 12/28/23 Feeling nervous, anxious, or on edge: 0 = Not at all Not being able to stop or control worryin = Not at all Worrying too much about different things: 0 = Not at all Trouble relaxin = Not at all Being so restless that it is hard to sit still: 0 = Not at all Becoming easily annoyed or irritable: 0 = Not at all Feeling afraid as if something awful might happen: 0 = Not at all Total BENJY-7 score (0-4 normal; 5-9 mild; 10-14 moderate; 15-21 severe): 0 Source: Developed by Drs. Adolfo Hilliard, Izzy Monet, Giuseppe Arteaga and colleagues, with an educational regla from [employer]. BENJY-7 Assessment Billing BENJY-7 Assessment Tool: BENJY-7 Assessment 87597 Review of Systems Const All systems reviewed & are unremarkable except as noted in HPI and below Eyes Reports no additional complaints ENT Reports no additional complaints Card Reports no additional complaints Resp Reports no additional complaints GI Reports no additional complaints Reports no additional complaints Physical exam (Primary Care) Vital Signs: Last Vital Signs Pulse 89 12/28/23 09:47 BP 126/64 12/28/23 09:47 Pulse Ox 98 12/28/23 09:47 Oxygen Delivery Method Room Air 12/28/23 09:47 BMI result Body Mass Index 27.5 Tobacco/Smoking Status: Tobacco use Status Tobacco use date assessed 12/28/23 12/28/23 09:56 Patient Tobacco Use Status Never used Tobacco 12/28/23 09:56 e-Cigarette/Vaping Use Never Used 12/28/23 09:50 PHQ-9: PHQ-9 Score PHQ-9: Total score 0 12/28/23 09:56 Depression Screening Interpretation: Negative Thrive Assessment: Date of Thrive Assessment Date Thrive assessed 12/28/23 12/28/23 09:56 Const General: no acute distress HENMT Head: Yes normal to inspection General nose exam: Normal external nose present Mouth: Normal oral and palatal mucosa present Teeth and gingiva: dentition normal Throat: Yes posterior oropharynx normal Eyes General: appearance normal, both eyes and all related structures Neck Neck: Yes no lymphadenopathy and Yes supple Resp Effort & Inspection: normal respiratory effort Auscultation: clear to auscultation bilaterally Cardio Rhythm: regular rhythm Heart sounds: S1 normal heart sound present and S2 normal heart sound present GI Inspection: Yes normal to inspection Palpation (GI): Soft to palpation Percussion: Yes normal to percussion Auscultation: normal bowel sounds Extrem Other: Trace pitting edema bilaterally, diabetic foot exam skin is intact, monofilament and vibration sensation intact b/l Assessment and Plan Assessment & Plan (1) Diabetes: Code(s): E11.9 - Type 2 diabetes mellitus without complications Plan: A1C is 8.7, ADA diet increase physical activity discussed with the patient she was advised to add Jardiance to metformin but patient declined. She would like to recheck A1c follow ADA diet and will follow-up in 4 months (2) Hyperlipidemia: Comment: pt intolerant to statin Code(s): E78.5 - Hyperlipidemia, unspecified Plan: Continue low-cholesterol diet (3) Annual physical exam: Code(s): Z00.00 - Encounter for general adult medical examination without abnormal findings Plan: Well-balanced diet regular exercise discussed with the patient. She is up-to-date with the mammogram and will be referred to GI for overdue colonoscopy with a history of colon polyps (4) DM retinopathy: Comment: f/u with [facility] Code(s): E11.319 - Type 2 diabetes mellitus with unspecified diabetic retinopathy without macular edema Plan: Follow-up with ophthalmology (5) Anemia: Code(s): D64.9 - Anemia, unspecified Plan: Check iron and B12 level (6) H/O colonoscopy: Comment: 01/2017 Dr. Dawn, small polyps repeat 5 years Code(s): Z98.890 - Other specified postprocedural states Plan: Referred to GI for repeat colonoscopy Orders: Orders Hemoglobin A1c 4 Months E11.319 - Type 2 diabetes mellitus with unspecified diabetic retinopathy without macular edema, E11.9 - Type 2 diabetes mellitus without complications, E78.5 - Hyperlipidemia, unspecified, Z00.00 - Encounter for general adult medical examination without abnormal findings Comprehensive [place]. Panel Fast 4 Months E11.319 - Type 2 diabetes mellitus with unspecified diabetic retinopathy without macular edema, E11.9 - Type 2 diabetes mellitus without complications, E78.5 - Hyperlipidemia, unspecified, Z00.00 - Encounter for general adult medical examination without abnormal findings Microalbumin, Random (w Creat) 4 Months E11.319 - Type 2 diabetes mellitus with unspecified diabetic retinopathy without macular edema, E11.9 - Type 2 diabetes mellitus without complications, E78.5 - Hyperlipidemia, unspecified, Z00.00 - Encounter for general adult medical examination without abnormal findings IRON PROFILE Today D64.9 - Anemia, unspecified Lipid Panel 4 Months E11.319 - Type 2 diabetes mellitus with unspecified diabetic retinopathy without macular edema, E11.9 - Type 2 diabetes mellitus without complications, E78.5 - Hyperlipidemia, unspecified, Z00.00 - Encounter for general adult medical examination without abnormal findings Complete Blood Count Auto Diff 4 Months E11.319 - Type 2 diabetes mellitus with unspecified diabetic retinopathy without macular edema, E11.9 - Type 2 diabetes mellitus without complications, E78.5 - Hyperlipidemia, unspecified, Z00.00 - Encounter for general adult medical examination without abnormal findings AMB Hemoglobin A1c Today Z13.9 - Encounter for screening, unspecified Vitamin B12 and Folate Today D64.9 - Anemia, unspecified Hemoglobin A1c 1 Month E11.9 - Type 2 diabetes mellitus without complications Referrals Gastroenterology Referral Z98.890 - Other specified postprocedural states Coding Level of Care Code Est Pt Prev Care >65y(85880) Diagnoses Diabetes E11.9 Hyperlipidemia E78.5 Annual physical exam Z00.00 DM retinopathy E11.319 Anemia D64.9 H/O colonoscopy Z98.890 Additional Codes BENJY-7 Assessment Billing - BENJY-7 Assessment Tool: BENJY-7 Assessment 39907 ([id number])
== END 2023-12-28 10:59 | disposition home or self-care (01) ==
PROVIDERS: PCP Internal Medicine; Visit Provider Internal Medicine
DX: Z00.00 Encounter for general adult medical examination without abnormal findings (principal); E11.69 Type 2 diabetes mellitus with other specified complication; E11.319 Type 2 diabetes mellitus with unspecified diabetic retinopathy without macular edema; E78.5 Hyperlipidemia, unspecified; D64.9 Anemia, unspecified; Z98.890 Other specified postprocedural states
CPT/HCPCS: 83036; 99397

== ENCOUNTER 2023-12-28 10:19 | Outpatient (REF) | payer MEDICARE, SELFPAY ==
[2023-12-28 14:21] LABS: Iron 29 mcg/dL (30-160); Percent Iron Saturation 8 % (15-50); Total Iron Binding Capacity 358 mcg/dL (228-428); Unsaturated Iron Binding 329 ug/dL
[2023-12-28 14:47] LABS: Folate 11.7 ng/mL (> or = 4.0); Vitamin B12 330 pg/mL (200-900)
== END 2023-12-28 10:20 | disposition home or self-care (01) ==
LOC: HO.HMGCLDS 10:19
PROVIDERS: PCP Internal Medicine; Visit Provider Internal Medicine
DX: D64.9 Anemia, unspecified (principal)
CPT/HCPCS: 36415; 82607; 82746; 83540

== ENCOUNTER 2024-04-24 06:32 | Outpatient (REF) | payer MEDICARE, SELFPAY ==
[2024-04-24 10:13] LABS: MANUAL DIFF FLAG NO
[2024-04-24 10:22] LABS: Basophils Percent Auto 0.5 % (0-2); Eosinophils Absolute Auto 0.2 X10*3/uL (0.0-0.4); Hematocrit 37.5 % (37.0-47.0); Hemoglobin 12.3 g/dl (12.0-16.0); Imm Gran Abs Auto 0.02 X10*3/uL (0.00-0.03); Imm Gran Pct Auto 0.3 % (0.0-0.4); Mean Corpuscular HGB Conc 32.8 g/dl (31.0-35.0); Mean Corpuscular Hemoglobin 27.7 pg (27.0-33.0); Mean Corpuscular Volume 84.5 fL (80.0-98.0); Mean Platelet Volume 11.2 fL (9.4-12.3); Monocytes Absolute Auto 0.3 X10*3/uL (0.1-1.2); Monocytes Percent Auto 4.9 % (2-11); Neutrophils Absolute Auto 3.4 x10*3/uL (2.0-8.3); Neutrophils Percent Auto 57.3 % (45-73); Platelet Count 210 X10*3/uL (160-400); Red Blood Count 4.44 X10*6/uL (4.20-5.50); Red Cell Distribution Width 14.3 % (11.0-16.0); White Blood Count 5.9 X10*3/uL (4.8-10.8)
[2024-04-24 10:58] LABS: Iron 57 mcg/dL (30-160); Percent Iron Saturation 18 % (15-50); Total Iron Binding Capacity 315 mcg/dL (228-428); Unsaturated Iron Binding 258 ug/dL
[2024-04-24 11:03] LABS: Ferritin 15 ng/mL (10-250)
== END 2024-04-24 06:33 | disposition home or self-care (01) ==
LOC: HO.HMGCLDS 06:32
PROVIDERS: PCP Internal Medicine; Visit Provider Internal Medicine
DX: D50.9 Iron deficiency anemia, unspecified (principal)
CPT/HCPCS: 36415; 82728; 83540; 85025

== ENCOUNTER 2024-05-07 08:34 | Day surgery (SDC) | payer MEDICARE, SELFPAY ==
--- OUTSIDE RECORDS SUMMARY | 2024-04-24 06:32 | XMS_ITS ---
[facility] Organization [facility] Address [address] [place] [address] Care Team Providers Care Sample Hand Name Role Phone Mery Franco MD Primary Care Provider Unavaila Alberto Hays Unavailable [phone] Allergies Allergen (clinical drug ingredient) Drug/Non Drug Allergy documented on EMR Reaction Allergy Type Onset Date Status diphenhydramine Antihistamine Unknown Drug Allergy Active sulfamethoxazole / trimethoprim Bactrim sick to stomach Drug Allergy Active losartan Losartan Potassium cough Drug Allergy Active shrimp allergenic extract Shrimp (Diagnostic) swell up Drug Allergy Active codeine Codeine hallucinations Drug Allergy Ac tive Shellfish (FN) Shellfish-derived Products swell up Drug Allergy Active REASON FOR VISIT At Risk Footcare, Painful Nail(s) aggrevated by shoes and causing difficulty standing/walking, Toe Irritation Medications Medication SIG (Take, Route, Frequency, Duration) Notes Start Date End Date Status Januvia 50 MG 2 tablets Orally Twi ce a day for 30 day(s) Not-Taking Losartan Potassium 50 MG 1 tablet Orally Once a day for 30 day(s) Not-Taking Aspirin 81 MG 1 tablet Orally Once a day for 30 day(s) Active metFORMIN HCl 1000 MG 2 tablet with a me al Orally Once a day Active ProAir HFA 108 (90 Base) MCG/ACT 2 puffs as needed Inhalation every 6 hrs PRN Active Iron 325 (65 Fe) MG 1 tablet Orally Once a day for 30 day(s) Not-Taking Extra Depth Orthopedic Shoes, (1) Pair With (3) Pair Custom Heat Molded Multidensity Innersoles Dx: NIDDM/PVD(E11.51), Hammertoe Foot Deformity(M20.41,M20.42) , Preulcerative Skin Lesion(s)(L85.1) Wear Daily for 365 days 01/26/2023 Active Clindamycin Phosphate 1 % 1 application Externally Twice a day Not-Taking MetroCream 0.75 % 1 application Precision Lens Generator ally Twice a day Not-Taking Ketoconazole 200 MG 1 tablet Orally Once a day for 10 day(s) Not-Taking Social History Tobacco Use: Social History Observation Description Date Details (start date - stop date) Never Smoker NA - NA Tobacco Use/Smoking Question Answer Notes Are you a: nonsmoker Additional Findings: Tobacco Non-User Current no n-smoker Alcohol Screen Question Answer Notes Did you have a drink contain ing alcohol in the past year? Yes How often did you have a dri nk containing alcohol in the past year? Monthly or less (1 point) Points 1 Interpretation Negative Tobacco use other than smoking: Question Answer Notes Are you an other tobacco user? No Vital Signs Height 5ft in 2023 Weight 134 lbs 2023 BMI 26.17 kg/m2 2023 Procedures Procedure Date Ordered Date Performed Result Body Sit e 38216-NDJUDIF NAIL, 6 OR MORE 2023 N/A 15030-WXIO SKIN LESIONS, OVER 4 2023 N/A Encounters Encounter Location Date Provider Diagnosis [facility] [address] [place] [address] 2023 Alberto Guo Type 2 diabetes mellitus with diabetic peripheral angiopathy without gangrene E11.51 ; Tinea unguium B35.1 ; Pain in right toe(s) M79.674 ; Pain in left toe(s) M79.675 ; Other hammer toe(s) (acquired), right foot M20.41 and Other hammer toe(s) (acquired), left foot M20.42 Assessments Encounter Date Diagnosis (ICD Code) Assessment Notes Treatment Notes Treatment Clinical Notes Section Notes 2023 Type 2 diabetes mellitus with diabetic peripheral angiopathy without gangrene (ICD-10 - E11.51) 2023 Tinea unguium (ICD-10 - B35.1) 2023 Pain in right toe(s) (ICD-10 - M79.674) 2023 Pain in left toe(s) (ICD-10 - M79.675) 2023 Other hammer toe(s) (acquired), right foot (ICD-10 - M20.41) Response to treatment,Impro vement 2023 Other hammer toe(s) (acquired), left foot (ICD-10 - M20.42) Response to treatment,Impro vement Plan Of Treatment Pending Test Test Name Order Date 46864-XEOCPIB NAIL, 6 OR MORE 2023 74422-DVNS SKIN LESIONS, OVER 4 07/27/19 24 Next Appt Details Follow Up: prn, Reason: Provider Name:Alberto Guo , 06/03/2024 08:45:00 AM, [address] [place] [address], [id number], Procedure Notes * Category Sub-Category Detail Notes Debride Nail 6-10 Nail debridement Nail debridem ent performed extensively to reduce/remove overall nail length, girth, thickness, subungual debris, and necrotic tissue, by manual and electrical means through the use of a nail nipper and/or dremel, to more viable healthy nail plate or bed tissue 1-5. Silver nitrate used for any petechial bleeding as necessary. Patient chooses, no pharmaceutical tx (99004) Keratoma Treatment Parring or Cutting o f Benign Hyperkeratotic Lesion(s) 88955 ( >4 Lesions) - The Benign hyperkeratotic lesions, as described above were pared, and/or cut utilizing a sterile #15 blade, tissue nippers, and/or dremel, Q8 Progress Notes * Alexander GARCÍAOB:[birth year] (72 yo F)Acc No.[id number]:2023 Progress Note Patient:?JoseEdwardo Provider:?Alberto Guo DPM :1950???Age:72 Y???Sex:Female D ate:2023 Address:[address], [id number] Pcp:Mery Franco MD Subjective: * Chief Complaints: * ???At Risk FootcarePainful N ail(s) aggrevated by shoes and causing difficulty standing/walkingToe Irritation * HPI: ???At Risk footcare:?Pt States Last PCP Visit:?Date?05/09/2023 ???Toe pain:?Treatments:?Rx shoes .? * ROS:?General/Constitutional:?Nausea?denies.?Vomiting?denies.?Hunger Thirst?denies.?Loss appetite?denies.?Chills?denies.?Fatigue?denies.?Fever?denies.?Night Sweats?denies.?Unexplained weight loss?denies.?Unexplained weight gain?denies.?HEENTM:?Dentures?denies.?Dizziness?denies.?Glasses/contacts?admits.?Retinopathy?de nies.?Blurred/double vision?denies.?TMJ?denies.?Discharge/drainage?denies.?Implants?denies.?Sore throat?denies.?Dental implants?denies.?Hard of hearing ?admits.?Difficulty chewing/swallowing/speaking?denies.?Nose bleeds?denies.?Sore mouth?denies.?Respiratory:?On Oxygen?denies.?Pneumonia/pleurisy?denies.?Bronchitis?denies.?Emphysema?denies.?C oughing?denies.?Cough blood?denies.?Shortness of breath?denies.?Wheezing?denies.?Cardiovascular:?Pacemaker?denies.?MVP?denies.?WPW?denies.?CHF?denies.?Heart attack?denies.?Septal defect?denies.?Rapid beat?denies.?Chest pain ?denies.?Atrial Fib.?denies.?Murmur/Palpitations?denies.?Gastrointestinal:?Hemorrhoids?denies.?Stomach/Abdominal pain?denies.?Dark blood stool?denies.?Irritable bowel ?denies.?Constipation?denies.?Diarrhea?denies.?Hematology:?Swelling?admits.?Clots?denies.?Varicose Veins?denies.?Bruising?denies.?Bleeding problem?denies.?Genitourinary:?Blood urine?denies.?Frequent/Painfu/urination/bladder control?denies.?Kidney stones?denies.?Infection (UTI)?denies.?Nephropathy?denies.?sex trans dis (STD)?denies.?Prostate?denies.?Musculoskeletal:?Hammertoes?admits.?Bunions?denies.?Back Pain?denies.?Muscle Cramps/ Resting?denies.?Muscle cramps / walking?denies.?Generalized aches and pains?denies.?Weakness?denies.?Integ.:?Hdez?denies.?Scars?denies.?Corns/calluses?admits.?Ingrown nails?admits.?Painful nails?admits.?Open Sores?denies.?Rashes?denies.?Neurologic:?Difficulty sleeping?denies.?Brain disorder?denies.?Numbness?admits.?Balance trouble?denies.?Confusion?denies.?Fainting/blackouts?denies.?Tingling?admits.?Tr emors?denies.? * Medical History:? * Surgical History:?antonio rios er 1979 * Hospitalization/Major Diagno stic Procedure:?Denies Past Hospitalization * Family History:?Mother: dece ased, diagnosed with Unspecified essential hypertension, Other malignant neoplasm of unspecified site.?Father: , diagnosed with Other malignant neoplasm of unspecified site.?Daughter(s): alive.?Son(s): alive.?Paternal Grand Mother: stroke.?Maternal Grand Mother: stroke.?Siblings: defects.?1 son(s) , 1 daughter(s) . .? * Social History:?Tobacco Use:?Tobacco Use/Smoking?Are you a:?nonsmoker ?Additional Findings: Tobacco Non-User?Current non-smoker ?Tobacco use other than smoking?Are you an other tobacco user??No ???Drugs/Alcohol:?Drugs?Have you used drugs other than those for medical reasons in the past 12 months??No ?Alcohol Screen?Did you have a drink containing alcohol in the past year??Yes ?How often did you have a drink containing alcohol in the past year??Monthly or less (1 point) ?Points?1 ?Interpretation?Negative ???Miscellaneous:?Caffeine: yes, 4-5 cups per day. ?Children: yes, Three. 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 ?Marital status: . 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 * Medications:?TakingAspirin 8 1 MG Tablet 1 tablet Orally Once a daymetFORMIN HCl 1000 MG Tablet 2 tablet with a meal Orally Once a dayProAir HFA 108 (90 Base) MCG/ACT Aerosol Solution 2 puffs as needed Inhalation every 6 hrs, Notes: PRNExtra Depth Orthopedic Shoes, (1) Pair With (3) Pair Custom Heat Molded Multidensity Innersoles . Dx: NIDDM/PVD(E11.51), Hammertoe Foot Deformity(M20.41,M20.42), Preulcerative Skin Lesion(s)(L85.1) Wear DailyTaking Aspirin 81 MG Tablet 1 tablet Orally Once a dayTaking metFORMIN HCl 1000 MG Tablet 2 tablet with a meal Orally Once a dayTaking ProAir HFA 108 (90 Base) MCG/ACT Aerosol Solution 2 puffs as needed Inhalation every 6 hrs, Notes: PRNTaking Extra Depth Orthopedic Shoes, (1) Pair With (3) Pair Custom Heat Molded Multidensity Innersoles . Dx: NIDDM/PVD(E11.51), Hammertoe Foot Deformity(M20.41,M20.42), Preulcerative Skin Lesion(s)(L85.1) Wear DailyNot-Taking/PRNClindamycin Phosphate 1 % Lotion 1 application Externally Twice a dayMetroCream 0.75 % Cream 1 application Externally Twice a dayKetoconazole 200 MG Tablet 1 tablet Orally Once a dayIron 325 (65 Fe) MG Tablet 1 tablet Orally Once a dayJanuvia 50 MG Tablet 2 tablets Orally Twice a dayLosartan Potassium 50 MG Tablet 1 tablet Orally Once a dayMedication List reviewed and reconciled with the patientNot-Taking/PRN Clindamycin Phosphate 1 % Lotion 1 application Externally Twice a dayNot-Taking/PRN MetroCream 0.75 % Cream 1 application Externally Twice a dayNot-Taking/PRN Ketoconazole 200 MG Tablet 1 tablet Orally Once a dayNot- Taking/PRN Iron 325 (65 Fe) MG Tablet 1 tablet Orally Once a dayNot-Taking/PRN Januvia 50 MG Tablet 2 tablets Orally Twice a dayNot-Taking/PRN Losartan Potassium 50 MG Tablet 1 tablet Orally Once a dayMedication List reviewed and reconciled with the patient * Allergies:?AntihistamineLosa rtan Potassium: coughCodeine: hallucinationsShrimp (Diagnostic): swell upShellfish-derived Products: swell upBactrim: sick to stomachyes[Allergies Verified] Objective: * Vitals:?Ht: 5ft, Wt:134, BMI :26.17, Shoe size:7-7.5, BS:186. * ???Past Orders: ???Lab:HEMOGLOBIN A1C (GLYCO HEMOGLOBIN) (Order Date - 11/14/2022) (Collection Date - 11/14/2022) ? Value Reference Range ?HEMOGLOBIN A1C % (HH) 7.2 * Examination: ???Vascular: ?DP PULSES:?0/4, B/L.?PT PULSES:? 1/4, B/L.?CAPILLARY FILL TIME:?delayed, all digits, B/L.?SKIN TEMPERTURE GRADIENT OF THE LOWER EXTERMITIES:?decreased, cool to cool, proximal to distal, B/L.?HAIR GROWTH/TEXTURE/ELASTICITY/TURGOR:?decreased, B/L.?PIGMENTATION:?rubrous, B/L.?EDEMA:? 2/4, non-pitting, without aching pain, B/L, Leg(s), Ankle(s).?CLAUDICATION:?denies, B/L.?REST PAIN:?denies, B/L.?Nails: ?NAILS are:?Elongated, overgrown, dystrophic, lytic, greater than 3mm thick, discolored and friable with crumbly malodorous subungual debris, with pain on palpation, TA, T1, T4, T5, T8, T9.?Dermatologic: ?SKIN FINDINGS:? Skin exam reveals Keratotic lesion(s) located at, SUB MTH (s), 2, B/L , SUB MTH (s), 3, B/L , Heel(s), B/L.?Orthopedic: ?DIGITAL DEFORMITIES:?Digital contracture, PIPJ, 2-5 B/L, incompl-reducible to push-up test, no over, nor underlapping.?FOOTWEAR:?good condition, exhibit proper fit and accommodation for pedal deformities. OT were inspected and noted to be worn, but in good condition giving proper support at the present time.? Assessment: * Assessment: 1.?Type 2 diabetes mellitus with diabetic peripheral angiopathy without gangrene - E11.51?2.?Tinea unguium - B35.1?3.?Pain in right toe(s) - M79.674?4.?Pain in left toe(s) - M79.675?5.?Other hammer toe(s) (acquired), right foot - M20.41, Chronic problem, Stable (1=3,2=4), Response to treatment,Improvement?6.?Other hammer toe(s) (acquired), left foot - M20.42, Chronic problem, Stable (1=3,2=4), Response to treatment,Improvement? Plan: * Treatment: 2.?Tinea unguium?Procedure: 04342-DAALNBZ NAIL, 6 OR MORE * Procedures:?Debride Nail 6-10:?Nail debridement?Nail debridement performed extensively to reduce/remove overall nail length, girth, thickness, subungual debris, and necrotic tissue, by manual and electrical means through the use of a nail nipper and/or dremel, to more viable healthy nail plate or bed tissue 1-5. Silver nitrate used for any petechial bleeding as necessary. Patient chooses, no pharmaceutical tx (02715).?Keratoma Treatment:?Parring or Cutting of Benign Hyperkeratotic Lesion(s)?69783 ( >4 Lesions) - The Benign hyperkeratotic lesions, as described above were pared, and/or cut utilizing a sterile #15 blade, tissue nippers, and/or dremel, Q8.? * Procedure Codes:?20984 DEBRI DE NAIL, 6 OR MORE, Modifiers: XS 50350 TRIM SKIN LESIONS, OVER 4, Modifiers: XS , Q8 * Preventive Medicine:? ??Counseling:?Discussion:?-13: Office or other outpatient visit for the evaluation and management of an established patient, which required a medically appropriate history and/or examination and LOW level of DECISION MAKING for: 1 STABLE ACUTE UNCOMPLICATED PROBLEM, 2 OR MORE MINOR PROBLEMS, OR 1 STABLE CHRONIC PROBLEM, THAT POSE(S) A LOW RISK FOR MORBIDITY/MORTALITY. The visit on the day of the encounter encompassed interpreting the data and educating the patient as to the nature of their condition, treatment options available according to their individual PMH, meds, allergies, and overall health/living conditions, as well as any potential risks or complications that may occur from a failure to adhere to, and participate in, the recommended course of therapy. The discussion included a complete verbal, and/or written explanation of the examination results, any x-rays taken, the proposed diagnosis, and outline of the treatment plan. A schedule for future care needs was also explained. The patient verbalized an understanding of the instructions at this time and agreed to be an active participant in their treatment. If the patient should think of any questions or concerns after the visit, I have encouraged the patient to call the office.?Shoe Gear Counseling:?A thorough inspection of the patients Rxed shoegear and inserts was performed and findings communicated. We reviewed the many important medical advantages for adhering to regularly wearing these shoe and insert accomidative devices daily as well as reviewed the fact that a failure in accepting these recommedations may be deleterious, unable to prevent, and disadvantagely result in, many pedal complications such as skin irritation, skin ulceration, infection, and even loss of toe/foot/leg/or even their life. Time was also spent reviewing the proper footcare techniques including daily skin moisturization, daily foot inspection for any interruption in skin integrity, open lesions, or sign of infection such as redness/malodor/drainage/swelling as well as daily shoe inspection for the presence of internal foreign bodies and shoe as well as insert wear. Patient questions re: shoes, inserts, and self foot inspections were answered to their satisfaction as the patient verbally confirmed a full understanding of the above information.? * Follow Up:?prn * Images: * Sign off status: Completed Addendum: * ? true * Provider:?Alberto Guo DPM Date:?2023 Generated for Fadi menjivar/Gricelda/Kye on:?04/24/2024 06:32 AM EST History and Physical Notes * HPI (History of Present Illness) Category Sub-Category Detail Notes Category Not es Toe pain Treatments: Rx shoes At Risk footcare Pt States Last PCP Visit: Date: 4 Examination Category Sub-Category Detail Notes Category Not es Dermatologic SKIN FINDINGS: Skin exam reveal s Keratotic lesion(s) located at, SUB MTH (s), 2, B/L , SUB MTH (s), 3, B/L , Heel(s), B/L Orthopedic FOOTWEAR: good condition, exhibit proper fit and accommodation for pedal deformities. OT were inspected and noted to be worn, but in good condition giving proper support at the present time DIGITAL DEFORMITIES: Digital contracture , PIPJ, 2-5 B/L, incompl-reducible to push-up test, no over, nor underlapping Vascular DP PULSES (B): 0/4, B/L PT PULSES (B): 1/4, B/L CAPILLARY FILL TIME: delayed, all digits , B/L TEMPERTURE GRADIENT (C): decreased, cool to cool, proximal to distal, B/L TROPHIC CONDITION-TEXTURE/ELASTICITY/TURGOR/HAIR GROWTH (B): decreased, B/L EDEMA (C): 2/4, non-pitting, wi thout aching pain, B/L, Leg(s), Ankle(s) CLAUDICATION (C): denies, B/L REST PAIN: denies, B/L PIGMENTATION: rubrous, B/L Nails NAILS are: Elongated, overg rown, dystrophic, lytic, greater than 3mm thick, discolored and friable with crumbly malodorous subungual debris, with pain on palpation, TA, T1, T4, T5, T8, T9
--- OUTSIDE RECORDS SUMMARY | 2024-04-24 06:32 | XMS_ITS | Patient Health Record ---
Author Organization [facility] Address [address] [place] [id number] Care Team Providers Care Surgical Services Coordinator Name Role Phone Mery Franco MD Primary Care Provider Adolfo Broussard Unavailable [phone] ALLERGIES Allergen (clinical drug ingredient) Drug/Non Drug Allergy documented on EMR Reaction Allergy Type Onset Date Status diphenhydramine Antihistamine Unknown Drug Allergy Active REASON FOR REFERRAL No Information MEDICATIONS Medication SIG (Take, Route, Fr equency, Duration) Notes Start Date End Date Status Iron Active Baby Aspirin Active metFORMIN HCl ER 500 MG TAKE 1 TABLET BY MOUTH TWICE DAILY Oral for 30 Active IMMUNIZATIONS Vaccine Route Administration Date Status Comme nts Influenza Unknown 04/23/2024 Refused SOCIAL HISTORY Sex Assigned At : Social History Observation Description Sex Assigned At Unknown PROBLEMS Problem Type ICD Code Onset Dates Problem Status W/U Status Risk SNOMED Code Notes Problem Encounter for screening for malignant neoplasm of colon (Z12.11) Active confirmed 941876413 Problem History of adenomatous polyp of colon (Z86.010) Active confirmed 331479538 Problem Iron deficiency anemia (D50.9) Active confirmed Iron deficiency anemia (85543107) Problem Preprocedural examination (Z01.818) Active confirmed 884907162 Problem Aspirin long-term use (Z79.82) Active confirmed 976873545 VITAL SIGNS Temperature 97.5 degrees Fahrenheit 04/23/2024 Blood pressure diastolic 00 mm Hg 04/23/2024 Height 59.25 in 04/23/2024 Blood pressure systolic 000 mm Hg 04/23/2024 Weight 140 lbs 04/23/2024 BMI 28.04 kg/m2 04/23/2024 Encounters Encounter Location Date Provider Diagnosis [facility] [address] [place] [address] 04/23/2024 Adolfo Dawn Iron deficiency anem ia D50.9 ; History of adenomatous polyp of colon Z86.010 and Aspirin long-term use Z79.82 ASSESSMENTS Encounter Date Diagnosis Assessment Notes Treatment Notes Treatment Clinical Notes 04/23/2024 Iron deficiency anemia (ICD-10 - D50.9) Stop Iron and Aspirin for 1 week before the procedures Do not take the Metformin the night before or on the morning of the procedures 04/23/2024 History of adenomatous polyp of colon (ICD-10 - Z86.010) 04/23/2024 Aspirin long-term use (ICD-10 - Z79.82) PLAN OF TREATMENT Pending Test Test Name Order Date IRON + IBC (FE) 04/23/2024 CBC w DIFF 04/23/2024 Ferritin 04/23/2024 Future Test Test Name Order Date COLONOSCOPY 12/29/2011 COLONOSCOPY 08/31/2016 UPPER GI ENDOSCOPY 04/23/2024 COLONOSCOPY 04/23/2024 Next Appt Details Provider Name:Adolfo Dawn , 04/30/2024 11:50:00 AM, [address] [facility] , [place], [place], [id number], Insurance Providers Payer Name Payer Address Payer Phone Subscriber Number Group Number Insured Name Patient Relationship to Insured Coverage Start Date Coverage End Date [facility] [address] [place] [phone] [id number] ARY HERNANDEZ Self - patient is the insured MEDICAL (GENERAL) HISTORY Medical History History ICD Code History of ulcers in her 20's Colonoscopy in 2001--- tubul ar adenoma and hyperplastic polyps removed in 2001 HTN NIDDM Herniated discs--lower back Denies MD,CVA,renal disease Colonoscopy 01/2012--hyperpl astic polyp, diverticulosis, internal hemorrhoids Asthma Colonoscopy 2016 with small tubular shant omas removed Iron def anemia Surgical History Surgery Date(Month/Year) Cholecystectomy
--- OUTSIDE RECORDS SUMMARY | 2024-04-24 06:32 | XMS_ITS | Patient Health Record ---
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 Name Role Phone Mery Franco MD Primary Care Provider Unavaila ble Alberto Guo Unavailable [phone] Allergies Allergen (clinical drug ingredient) Drug/Non Drug [...] Shellfish-derived Products swell up Drug Allergy Active Reason For Referral Diagnosis 1 Type 2 diabetes bonnie itus with diabetic peripheral angiopathy without gangrene (E11.51) Diagnosis 2 Other hammer toe(s) (acquired), right foot (M20.41) Diagnosis 3 Other hammer toe(s) (acquired), left foot (M20.42) Diagnosis 4 Tinea unguium (B35.1 ) Diagnosis 5 Pain in Limb (729.5) Diagnosis 6 Pain in left toe(s) (M79.675) Diagnosis 7 Pain in right toe(s) (M79.674) Diagnosis 8 Xerosis cutis (L85.3 ) Diagnosis 9 Hammer toe (735.4) Referring Provider First Name Mery Referring Provider Last Name Salvador [facility] Referred Provider Alberto uGo Referred Address [address],[place], [place],[address],[place] Referred Provider Specialty Podiatry Referral Priority Routine Medications Medication SIG (Take, Route, Frequency, Duration) Notes Start Date End Date Status Iron 325 (65 Fe) MG 1 tablet Orally Once a day for 30 day(s) Not-Taking Ketoconazole 200 MG 1 tablet Orally Once a day for 10 day(s) Not-Taking Losartan Potassium 50 MG 1 tablet Orally Once a day for 30 day(s) Not-Taking Januvia 50 MG 2 tablets Orally Twi ce a day for 30 day(s) Not-Taking Aspirin 81 MG 1 tablet Orally Once a day for 30 day(s) Active metFORMIN HCl 1000 MG 2 tablet with a me al Orally Once a day Active Extra Depth Orthopedic Shoes, (1) Pair With (3) Pair Custom Heat Molded Multidensity Innersoles Dx: NIDDM/PVD(E11.51), Hammertoe Foot Deformity(M20.41,M20.42) , Preulcerative Skin Lesion(s)(L85.1) Wear Daily for 365 days Active ProAir HFA 108 (90 Base) MCG/ACT 2 puffs as needed Inhalation every 6 hrs PRN Active MetroCream 0.75 % 1 application Cath Lab Manager ally Twice a day Not-Taking Clindamycin Phosphate 1 % 1 application Externally Twice a day Not-Taking Immunizations Vaccine Route Administration Date Status Comme nts Influenza Unknown 03/19/2019 Refused DOSEN'T GET TH EM. COVID-19 Carlos Manuel & Carlos Manuel/Sabi Unknown 07/15/2021 Refused Social History Tobacco Use: Social History Observation [...] Are you an other tobacco user? No Problems Problem Type SNOMED Code ICD Code Onset Dates Problem Status W/U Status Risk Notes Problem Acquired hammer toe of right foot (3420155306879 105) Other hammer toe(s) (acquired), right foot (M20.41) Active confirmed Response to treatment,I mprovement Problem Type 2 diabetes mellitus with peripheral angiopathy (957040074) Type 2 diabetes mellitus with diabetic peripheral angiopathy without gangrene (E11.51) Active confirmed Problem Acquired hammer toe of left foot (9849893574675 103) Other hammer toe(s) (acquired), left foot (M20.42) Active confirmed Response to treatment,I mprovement Vital Signs Blood pressure diastolic 65 mm Hg 02/01/2024 Height 5ft in 02/01/2024 Blood pressure systolic 120 mm Hg 02/01/2024 Weight 138 lbs 02/01/2024 BMI 26.95 kg/m2 02/01/2024 Procedures Procedure Date Ordered Date Performed Result Body Sit e 17130-UVJGMFQ NAIL, 6 OR MORE 2023 N/A 13003-ZELY SKIN LESIONS, OVER 4 2023 N/A 15635-MPQFRJB NAIL, 6 OR MORE 02/01/2024 N/A 94536-MRJK SKIN LESIONS, OVER 4 02/01/2024 N/A Encounters Encounter Location Date Provider Diagnosis [facility] [address] 2023 Alberto Guo Type 2 diabetes mellitus with diabetic peripheral angiopathy without gangrene E11.51 ; Tinea unguium B35.1 ; Pain in right toe(s) M79.674 ; Pain in left toe(s) M79.675 ; Other hammer toe(s) (acquired), right foot M20.41 and Other hammer toe(s) (acquired), left foot M20.[address] [facility] [address] 02/01/2024 Alberto Santosunier Type 2 diabetes mellitus with diabetic peripheral angiopathy without gangrene E11.51 ; Tinea unguium B35.1 ; Pain in right toe(s) M79.674 ; Pain in left toe(s) M79.675 ; Other hammer toe(s) (acquired), left foot M20.42 and Other hammer toe(s) (acquired), right foot M20.41 Assessments Encounter Date Diagnosis (ICD Code) Assessment Notes Treatment Notes Treatment Clinical Notes Section Notes 2023 Type 2 diabetes mellitus with diabetic peripheral angiopathy without gangrene (ICD-10 - E11.51) 2023 Tinea unguium (ICD-10 - B35.1) 02/01/2024 Type 2 diabetes mellitus with diabetic peripheral angiopathy without gangrene (ICD-10 - E11.51) 02/01/2024 Tinea unguium (ICD-10 - B35.1) 2023 Pain in right toe(s) (ICD-10 - M79.674) 2023 Pain in left toe(s) (ICD-10 - M79.675) 02/01/2024 Pain in right toe(s) (ICD-10 - M79.674) 02/01/2024 Pain in left toe(s) (ICD-10 - M79.675) 2023 Other hammer toe(s) (acquired), right foot (ICD-10 - M20.41) Response to treatment,Impro vement 2023 Other hammer toe(s) (acquired), left foot (ICD-10 - M20.42) Response to treatment,Impro vement 02/01/2024 Other hammer toe(s) (acquired), left foot (ICD-10 - M20.42) 02/01/2024 Other hammer toe(s) (acquired), right foot (ICD-10 - M20.41) Patient Educated with: DIABETIC FOOT CARE INSTRUCTIONS.p df (DIABETIC FOOT CARE INSTRUCTIONS.p df) Plan Of Treatment Pending Test Test Name Order Date 56125-UYSMKRF NAIL, 6 OR MORE 06/05/2013 17047-AHCLAYA NAIL, 6 OR MORE 08/28/2013 66737-MWAZUMM NAIL, 6 OR MORE 12/03/2013 22248-ORACWVD NAIL, 6 OR MORE 03/04/2014 44553-FCXTABF NAIL, 6 OR MORE 12/24/2020 29481-NSTSVGR NAIL, 6 OR MORE 07/15/2021 86818-KICOMTB NAIL, 6 OR MORE 02/21/2022 54452-TRLOZQR NAIL, 6 OR MORE 09/01/2022 07487-JCPKSOV NAIL, 6 OR MORE 01/26/2023 05901-BMPNSWR NAIL, 6 OR MORE 2023 64820-XNHGGUL NAIL, 6 OR MORE 02/01/2024 98983-UIHN SKIN LESIONS, OVER 4 02/01/20 24 15141-LQZR SKIN LESIONS, OVER 4 07/27/19 24 93785-PXVD SKIN LESIONS, OVER 4 01/27/20 23 30060-BAGV SKIN LESIONS, OVER 4 09/02/19 23 00987-DMZU SKIN LESIONS, OVER 4 02/22/20 22 74817-RXSY SKIN LESIONS, OVER 4 03/19/20 19 Next Appt Details Provider Name:Alberto Guo , 06/03/2024 08:45:00 AM, [address] [facility], [place], [address], Insurance Providers Payer Name Payer Address Payer Phone Subscriber Number Group Number Insured Name Patient Relationship to Insured Coverage Start Date Coverage End Date [facility] 65 Medicare Preferred [address] [place] [address] [id number] Edwardo Borjas Self - patient is the insured Medical (General) History Medical History History ICD Code asthma type II diabetes Gall bladder problems-out Hypertension Hyperlipidemia covid-19 Surgical History Surgery Date(Month/Year) gall bladder 1979
--- OUTSIDE RECORDS SUMMARY | 2024-04-24 06:32 | XMS_ITS ---
Author Organization [facility] Address [address] [place] [address] Care Team Providers Care Nurse Intern Name Role Phone Mery Franco MD Primary Care Provider Unavaila Alberto Hays Unavailable [phone] Nicole Encounters Encounter Location Date Provider Diagnosis [facility] [address] [place] [address] 01/25/2024 Alberto Guo Plan Of Treatment Next Appt Details Provider Name:Alberto Guo , 06/03/2024 08:45:00 AM, [address] [place], [address], Progress Notes * Alexander GARCÍAOB:[birth year] (73 yo F)Acc No.[id number]:01/25/2024 Progress Note Patient:?Jose Carlos GARCÍAan Provider:?Alberto Guo DPM :1950???Age:73 Y???Sex:Female D ate:01/25/2024 Address: [address] [id number] Pcp:Mery Franco MD Subjective: * Chief Complaints: * ???1. Dr Nicole. * Medical History:? Objective: * Vitals:? Assessment: Plan: * Treatment: * Images: * The named appointment provid er may or may not be the originator of this progress note, and it is not deemed complete until electronically signed by the appointment provider. Sign off status: Pending * Provider:Ok Guo DPM Date:?2023 Generated for Fadi menjivar/Gricelda/Kye on:?04/24/2024 06:32 AM EST
--- OUTSIDE RECORDS SUMMARY | 2024-04-24 06:32 | XMS_ITS ---
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 No Vital Signs Height 5ft in 02/01/2024 Weight 138 lbs 02/01/2024 BMI 26.95 kg/m2 02/01/2024 Blood pressure systolic 120 mm Hg 02/01/20 24 Blood pressure diastolic 65 mm Hg 024 Procedures Procedure Date Ordered Date Performed Result Body Sit e 89932-JPJZGNW NAIL, 6 OR MORE 02/01/2024 N/A 11583-OZTQ SKIN LESIONS, OVER 4 02/01/2024 N/A Encounters Encounter Location Date Provider Diagnosis [facility] [address] [address] 02/01/2024 Alberto Guo Type 2 diabetes mellitus with diabetic peripheral angiopathy without gangrene E11.51 ; Tinea unguium B35.1 ; Pain in right toe(s) M79.674 ; Pain in left toe(s) M79.675 ; Other hammer toe(s) (acquired), left foot M20.42 and Other hammer toe(s) (acquired), right foot M20.41 Assessments Encounter Date Diagnosis (ICD Code) Assessment Notes Treatment Notes Treatment Clinical Notes Section Notes 02/01/2024 Type 2 diabetes mellitus with diabetic peripheral angiopathy without gangrene (ICD-10 - E11.51) 02/01/2024 Tinea unguium (ICD-10 - B35.1) 02/01/2024 Pain in right toe(s) (ICD-10 - M79.674) 02/01/2024 Pain in left toe(s) (ICD-10 - M79.675) 02/01/2024 Other hammer toe(s) (acquired), left foot (ICD-10 - M20.42) 02/01/2024 Other hammer toe(s) (acquired), right foot (ICD-10 - M20.41) Patient Educated with: DIABETIC FOOT CARE INSTRUCTIONS.p df (DIABETIC FOOT CARE INSTRUCTIONS.p df) Plan Of Treatment Medication Medication Name Sig Start Date Stop Date Notes Extra Depth Orthopedic Shoes , (1) Pair With (3) Pair Custom Heat Molded Multidensity Innersoles Dx: NIDDM/PVD(E11.51), Hammertoe Foot Deformity(M20.41,M20.42), Preulcerative Skin Lesion(s)(L85.1) Wear Daily for 365 days Treatment Notes Assessment Notes Other hammer toe(s) (acquired), right fo ot Patient Educated with: DIABETIC FOOT CARE INSTRUCTIONS.pdf (DIABETIC FOOT CARE INSTRUCTIONS.pdf) Pending Test Test Name Order Date 47385-XLVRGKT NAIL, 6 OR MORE 02/01/2024 91945-RTIO SKIN LESIONS, OVER 4 02/01/20 24 Next Appt Details Follow Up: prn, Reason: Provider Name:Alberto Guo , 06/03/2024 08:45:00 AM, [address] [place] [address], [phone], Procedure Notes * Category Sub-Category Detail Notes Debride Nail 6-10 Nail debridement Performance o f this nail treatment by a nonprofessional would put this patients foot and overall health at risk. Therefore, nail debridement was performed extensively to reduce/remove overall nail length, girth, thickness, subungual debris, and necrotic tissue, by manual and/or electrical means through the use of a nail nipper and/or dremel-type radius grinder, to a more viable healthy nail plate or bed tissue 6-10. Silver nitrate used for any petechial bleeding as necessary. Definitive antifungal treatment options have been reviewed and discussed with the patient. The patient chooses, no pharmaceutical tx - 56568 Keratoma Treatment Parring or Cutting o f Benign Hyperkeratotic Lesion(s) (-57) More than 4 Lesions - The Benign hyperkeratotic lesions, as described above were pared, and/or cut utilizing a sterile 15 blade, tissue nippers, and/or dremel - 57783 , Q8 Progress Notes * Alexander GARCÍAOB:[birth year] (73 yo F)Acc No.[id number]:02/01/2024 Progress Note Patient:?Edwardo GARCÍA Provider:?Alberto Guo DPM :1950???Age:73 Y???Sex:Female D ate:02/01/2024 Address:[address] [place] [id number] Pcp:Mery Franco MD Subjective: * Chief Complaints: * ???At Risk FootcarePainful N ail(s) aggrevated by shoes and causing difficulty standing/walkingToe Irritation * HPI: ???At Risk footcare:?Pt States Last PCP Visit:?Date?12/31/2023 ???Toe pain:?Location:?B/L feet.?Duration:?several years.?Course:?worse.?Aggravated by:?shoes, any pressure.?Treatments:?change in shoes.? * ROS:?General/Constitutional:?Nausea?denies.?Vomiting?denies.?Hunger Thirst?denies.?Loss appetite?denies.?Chills?denies.?Fatigue?denies.?Fever?denies.?Night Sweats?denies.?Unexplained weight loss?denies.?Unexplained weight gain?denies.?HEENTM:?Dentures?denies.?Dizziness?denies.?Glasses/contacts?admits.?Retinopathy?den ies.?Blurred/double vision?denies.?TMJ?denies.?Discharge/drainage?denies.?Implants?denies.?Sore throat?denies.?Dental implants?denies.?Hard of hearing ?admits.?Difficulty chewing/swallowing/speaking?denies.?Nose bleeds?denies.?Sore mouth?denies.?Respiratory:?On O xygen?denies.?Pneumonia/pleurisy?denies.?Bronchitis?denies.?Emphysema?denies.?Co ughing?denies.?Cough blood?denies.?Shortness of breath?denies.?Wheezing?denies.?Cardiovascular:?Pacemaker?denies.?MVP?denies.?WPW?denies.?CHF?denies.?Heart attack?denies.?Septal defect?denies.?Rapid beat?denies.?Chest pain ?denies.?Atrial Fib.?denies.?Murmur/Palpitations?denies.?Gastrointestinal:?Hemorrhoids?denies.?Stomach/Abdominal pain?denies.?Dark blood stool?denies.?Irritable bowel ?denies.?Constipation?denies.?Diarrhea?denies.?Hematology:?Swelling?admits.?Clots?denies.?Varicose Veins?denies.?Bruising?denies.?Bleeding problem?denies.?Genitourinary:?Blood urine?denies.?Frequent/Painfu/urination/bladder control?denies.?Kidney stones?denies.?Infection (UTI)?denies.?Nephropathy?denies.?sex trans dis (STD)?denies.?Prostate?denies.?Musculoskeletal:?Hammertoes?admits.?Bunions?denies.?Back Pain?denies.?Muscle Cramps/ Resting?denies.?Muscle cramps / walking?denies.?Generalized aches and pains?denies.?Weakness?denies.?Integ.:?Hdez?denies.?Scars?denies.?Corns/calluses?admits.?Ingrown nails?admits.?Painful nails?admits.?Open Sores?denies.?Rashes?denies.?Neurologic:?Difficulty sleeping?denies.?Brain disorder?denies.?Numbness?admits.?Balance t rouble?denies.?Confusion?denies.?Fainting/blackouts?denies.?Tingling?admits.?Marshal mors?denies.? * Medical History:? * Surgical History:?antonio rios [...] than smoking?Are you an other tobacco user??No ???Miscellaneous:?Caffeine: yes, 4-5 cups per day. ?Children: yes, Three. 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 ?Marital status: . 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 * Medications:?TakingAspirin 8 1 MG Tablet 1 tablet Orally Once a day metFORMIN HCl 1000 MG Tablet 2 tablet with a meal Orally Once a day ProAir HFA 108 (90 Base) MCG/ACT Aerosol Solution 2 puffs as needed Inhalation every 6 hrs , Notes to Pharmacist: PRNExtra Depth Orthopedic Shoes, (1) Pair With (3) Pair Custom Heat Molded Multidensity Innersoles . Dx: NIDDM/PVD(E11.51), Hammertoe Foot Deformity(M20.41,M20.42), Preulcerative Skin Lesion(s)(L85.1) Wear Daily Taking Aspirin 81 MG Tablet 1 tablet Orally Once a day Taking metFORMIN HCl 1000 MG Tablet 2 tablet with a meal Orally Once a day Taking ProAir HFA 108 (90 Base) MCG/ACT Aerosol Solution 2 puffs as needed Inhalation every 6 hrs , Notes to Pharmacist: PRNTaking Extra Depth Orthopedic Shoes, (1) Pair With (3) Pair Custom Heat Molded Multidensity Innersoles . Dx: NIDDM/PVD(E11.51), Hammertoe Foot Deformity(M20.41,M20.42), Preulcerative Skin Lesion(s)(L85.1) Wear Daily Not-Taking/PRNClindamycin Phosphate 1 % Lotion 1 application Externally Twice a day MetroCream 0.75 % Cream 1 application Externally Twice a day Ketoconazole 200 MG Tablet 1 tablet Orally Once a day Iron 325 (65 Fe) MG Tablet 1 tablet Orally Once a day Januvia 50 MG Tablet 2 tablets Orally Twice a day Losartan Potassium 50 MG Tablet 1 tablet Orally Once a day Medication List reviewed and reconciled with the patientNot-Taking/PRN Clindamycin Phosphate 1 % Lotion 1 application Externally Twice a day Not-Taking/PRN MetroCream 0.75 % Cream 1 application Externally Twice a day Not-Taking/PRN Ketoconazole 200 MG Tablet 1 tablet Orally Once a day Not-Taking/PRN Iron 325 (65 Fe) MG Tablet 1 tablet Orally Once a day Not-Taking/PRN Januvia 50 MG Tablet 2 tablets Orally Twice a day Not- Taking/PRN Losartan Potassium 50 MG Tablet 1 tablet Orally Once a day Medication List reviewed and reconciled with the patient * Allergies:?AntihistamineLosa rtan Potassium: coughCodeine: hallucinationsShrimp (Diagnostic): swell upShellfish-derived Products: swell upBactrim: sick to stomachyes[Allergies Verified] Objective: * Vitals:?Ht: 5ft, Wt:138, BMI :26.95, Shoe size: 7-7.5, BP:120/65mm Hg, BS: 145, Ht-cm: 152.4 cm, Wt-k.6 kg. * ???Past Orders: ???Lab:HEMOGLOBIN A1C (GLYCO HEMOGLOBIN) (Order Date - 11/14/2022) (Collection Date & Time - 11/14/2022 09:12 AM) ? Value Reference Range ?HEMOGLOBIN A1C % (HH) 7.2 * Examination: ???Vascular: ?DP PULSES (B):?0/4, B/L.?PT PULSES (B):? 1/4, B/L.?CAPILLARY FILL TIME:?delayed, all digits, B/L.?TROPHIC CONDITION-TEXTURE/ELASTICITY/TURGOR/HAIR GROWTH (B):?decreased, with sparse to absent hair growth, B/L.?TEMPERTURE GRADIENT (C):?decreased, cool to cool, proximal to distal, B/L.?PIGMENTATION:?rubrous, B/L.?EDEMA (C):? 2/4, non-pitting, without aching pain, B/L, Leg(s), Ankle(s).?Nails: ?NAILS are:?Elongated, overgrown, dystrophic, lytic, greater than 3mm thick, discolored and friable with crumbly malodorous subungual debris, with pain on palpation, TA, T1, T4, T5, T8, T9.?Dermatologic: ?SKIN FINDINGS:? Skin exam reveals Keratotic lesion(s) located at, SUB MTH (s), 2, B/L , SUB MTH (s), 3, B/L , Heel(s), B/L.?Orthopedic: ?MUSCLE STRENGTH:?5/5 all groups in a symmetrical fashion , B/L.?FOOT MORPHOLOGY:?Pes Planus structure , (-) Charcot collapse/destruction noted at MTJ.?DIGITAL DEFORMITIES:?Digital contracture, PIPJ, 2-5 B/L, incompl-reducible to push-up test, no over, nor underlapping , with evidence of shoe producing skin irritation.?FOOTWEAR:?worn, OT were inspected and noted to be severely worn , in poor condition not giving proper support at the present time , shoe gear properties exacerbate patients foot/toe deformity.?Neurological: ?SENSORY:?Neurological exam reveals intact sensorium, pain sensation normal, vibration sensation intact, pinprick sensation is normal in the lower extremities, 5.07 monofilament test performed at plantar aspects of 5 varied sites per foot shows sensation, normal, B/L, Pt denies, anesthesia, burning, paresthesia, tingling, B/L.?Ophthalmology Referral: ?DIABETES EYE EXAM?General Examination: ?GENERAL APPEARANCE:?Reveals a pleasant, alert, well nourished, well- developed, well hydrated individual, who demonstrates proper attention to hygiene/body habitus, and is in no acute distress, Pt serves as own historian for office visit today.?ORIENTED:?person, place, and time.?FOOT EXAM:?Footwear Evaluation? Assessment: * Assessment: 1.?Type 2 diabetes mellitus with diabetic peripheral angiopathy without gangrene - E11.51???2.?Tinea unguium - B35.1???3.?Pain in right toe(s) - M79.674???4.?Pain in left toe(s) - M79.675???5.?Other hammer toe(s) (acquired), left foot - M20.42???Specify :Chronic problem, Worse (4),Rx Management (4)???6.?Other hammer toe(s) (acquired), right foot - M20.41 (Primary)???Specify :Chronic problem, Worse (4),Rx Management (4)??? Plan: * Treatment: 2.?Type 2 diabetes mellitus with diabetic peripheral angiopathy without gangrene?Procedure: 63150-TYOL SKIN LESIONS, OVER 4 3.?Tinea unguium?Procedure: 24984-NHANCME NAIL, 6 OR MORE * Procedures:?Debride Nail 6-10:?Nail debridement?Performance of this nail treatment by a nonprofessional would put this patients foot and overall health at risk. Therefore, nail debridement was performed extensively to reduce/remove overall nail length, girth, thickness, subungual debris, and necrotic tissue, by manual and/or electrical means through the use of a nail nipper and/or dremel-type radius grinder, to a more viable healthy nail plate or bed tissue 6-10. Silver nitrate used for any petechial bleeding as necessary. Definitive antifungal treatment options have been reviewed and discussed with the patient. The patient chooses, no pharmaceutical tx - 82584.?Keratoma Treatment:?Parring or Cutting of Benign Hyperkeratotic Lesion(s)?(-57) More than 4 Lesions - The Benign hyperkeratotic lesions, as described above were pared, and/or cut utilizing a sterile 15 blade, tissue nippers, and/or dremel - 75655 , Q8.? * Procedure Codes:?57435 DEBRI DE NAIL, 6 OR MORE, Modifiers: XS 84304 TRIM SKIN LESIONS, OVER 4, Modifiers: XS , Q8 * Preventive Medicine:? ??Counseling:?Discussion:?-14: Office or other outpatient visit for the evaluation and management of an established patient, which required a medically appropriate history and/or examination and MODERATE level of DECISION MAKING for: 1 OR MORE CHRONIC PROBLEM(S) THATS WORSENING, 2 STABLE CHRONIC PROBLEMS, A NEWLY DIAGNOSED PROBLEM WITH UNCERTAIN PROGNOSIS, AN ACUTE COMPLICATED INJURY WITH MULTIPLE TREATMENT OPTIONS, OR AN ACUTE PROBLEM WITH ACCOMPANYING SYSTEMIC SYMPTOMS, THAT POSE(S) A MODERATE RISK OF MORBIDITY. THIS CONDITION MAY ALSO INCLUDE RX DRUG MANAGEMENT, OR A DECISON FOR MINOR SURGERY. The visit on the day of the [...] have encouraged the patient to call the office.?Digital Surgery:?Digital surgery was discussed with the patient, We elected to try conservative treatment at the present time, due to the patients medical history and increased asssociated post-operative risks.?Digital Treatment:?HT- I explained to the patient the possible etiologies of Hammertoes, including genetics/foot type/shoegear/activity level/exercise routine and the risks/benefits of all the different treatment options for their pain including: No treatment at all, Rest, Ice, New/supportive/wider/deeper Shoegear, Digital Padding/Strapping/Taping/Bracing/Gel protective sleeves, Foot/Ankle AFO Bracing, Stretching exercises, Deep Tissue Massage, Arch support/shoe inserts with splay metatarsal padding, and Custom orthoses. I insisted that any digital devices be removed daily and not worn overnight for safety. The patient is to carefully examine the toes daily for any skin irritation while using any splinting or padding device. The advantages and disadvantages of each option were discussed and the patients questions re: shoegear, padding, custom vs prefabricated inserts, activity level, and consistency in home treatment regimens for optimal success were answered to their verbally confirmed satisfaction.?Shoe Gear Counseling:?SHOE Rx - The patient was counseled in great detail on their muscoloskeletal foot and toe deformities which coincided with the dermatological presentations visualized on exam. We discussed how their deformities put the integrity of their feet at risk for potential pedal complications which makes the accomidative diabetic shoes and cutomizable inserts medically necessary. We discussed the different shoe and insert treatment types and options, as well as the important advantages for adhering to regularly wearing these accomidative devices daily. The patient was made aware of the fact that a failure to abide by these recommedations may be deleterious to their foot health as they are able to prevent many pedal complications such as skin irritation, skin ulceration, infection, and even loss of toe/foot/leg/or life. Time was also spent with the patient dispensing and discussing proper diabetic footcare techniques including daily skin moisturization, daily foot inspection for any interruption in skin integrity including open lesions, or sign of infection such as redness/malodor/drainage/swelling. Also discussed and recommended were procedures regarding daily shoe inspection for the presence of internal foreign bodies as well as any visualized irregular shoe or insert wear. Patient questions re: shoes, inserts, and self foot inspections were answered to their satisfaction as the patient verbally confirmed a full understanding of the above information. A Rx for Extra Depth Orthopedic Shoes with 3 pair of custom heat-molded inserts was dispensed.? ??Screening/Special Tests:?Fall Risk?Assessment:?Performed ?Plan of Care:?Documented ?Screening:?No falls in the past year ?FALLS: Screening for Future Fall Risk?Have you had any falls with injury in the past year??No * Follow Up:?prn * Images: * Sign off status: Completed true * Provider:?Alberto Guo DPM Date:?2023 Generated for Fadi menjivar/Gricelda/Buzzsmitting on:?04/24/2024 06:31 AM EST History and Physical Notes * HPI (History of Present Illness) Category Sub-Category Detail Notes Category Not es Toe pain Location: B/L feet Duration: several years Course: worse Aggravated by: shoes, any pressure Treatments: change in shoes At Risk footcare Pt States Last PCP Visit: Date: 4 Examination Category Sub-Category Detail Notes Category Not es Neurological SENSORY: Neurological exa m reveals intact sensorium, pain sensation normal, vibration sensation intact, pinprick sensation is normal in the lower extremities, 5.07 monofilament test performed at plantar aspects of 5 varied sites per foot shows sensation, normal, B/L, Pt denies, anesthesia, burning, paresthesia, tingling, B/L Dermatologic SKIN FINDINGS: Skin exam reveal s Keratotic lesion(s) located at, SUB MTH (s), 2, B/L , SUB MTH (s), 3, B/L , Heel(s), B/L Orthopedic FOOT MORPHOLOGY: Pes Planus stru cture , (-) Charcot collapse/destruction noted at MTJ FOOTWEAR: worn, OT were inspec freeman and noted to be severely worn , in poor condition not giving proper support at the present time , shoe gear properties exacerbate patients foot/toe deformity DIGITAL DEFORMITIES: Digital contracture , PIPJ, 2-5 B/L, incompl-reducible to push-up test, no over, nor underlapping , with evidence of shoe producing skin irritation MUSCLE STRENGTH: 5/5 all groups in a symmetrical fashion , B/L General Examination GENERAL APPEARANCE: Reveals a pleasant, alert, well nourished, well-developed, well hydrated individual, who demonstrates proper attention to hygiene/body habitus, and is in no acute distress, Pt serves as own historian for office visit today FOOT EXAM: Lower Extremity Neurological Exa m performed:: Yes Visual exam of foot performed:: Yes Date: 02/01/2024 ORIENTED: person, place, and t ronn Footwear Evaluation Footwear Evaluation performe d:: Yes Ophthalmology Referral DIABETES EYE EXAM Procedure Perform ed:: Yes ?Date of Exam Performed: 10/31/2023 Diabetic Retinopathy Screening:: Yes Findings of Diabetic Eye Exam:: retinopa thy Vascular DP PULSES (B): 0/4, B/L PT PULSES (B): 1/4, B/L CAPILLARY FILL TIME: delayed, all digits , B/L TEMPERTURE GRADIENT (C): decreased, cool to cool, proximal to distal, B/L TROPHIC CONDITION-TEXTURE/ELASTICITY/TURGOR/HAIR GROWTH (B): decreased, with sparse to absent hair gr owth, B/L EDEMA (C): 2/4, non-pitting, wi thout aching pain, B/L, Leg(s), Ankle(s) PIGMENTATION: rubrous, B/L Nails NAILS are: Elongated, overg rown, dystrophic, lytic, greater than 3mm thick, discolored and friable with crumbly malodorous subungual debris, with pain on palpation, TA, T1, T4, T5, T8, T9
--- OUTSIDE RECORDS SUMMARY | 2024-04-24 06:32 | XMS_ITS ---
Author Organization [facility] Address [address] [place] [phone] Care Team Providers Care Hourly Team Members Name Role Phone Mery Franco MD Primary Care Provider Adolfo Broussard Unavailable [phone] ALLERGIES Allergen (clinical drug ingredient) Drug/Non Drug Allergy documented on EMR Reaction Allergy Type Onset Date Status diphenhydramine Antihistamine Unknown Drug Allergy Active REASON FOR VISIT Patient presents today for an iron deficiency MEDICATIONS Medication SIG (Take, Route, Fr equency, Duration) Notes Start Date End Date Status Iron Active Baby Aspirin Active metFORMIN HCl ER 500 MG TAKE 1 TABLET BY MOUTH TWICE DAILY Oral for 30 Active IMMUNIZATIONS Vaccine Route Administration Date Status Comme nts Influenza Unknown 04/23/2024 Refused PROBLEMS Problem Type ICD Code Onset Dates Problem Status W/U Status Risk SNOMED Code Notes Problem Iron deficiency anemia (D50.9) Active confirmed Iron deficiency anemia (03826520) VITAL SIGNS BMI 28.04 kg/m2 04/23/2024 Blood pressure systolic 000 mm Hg 04/23/19 25 Blood pressure diastolic 00 mm Hg 025 Height 59.25 in 04/23/2024 Temperature 97.5 degrees Fahrenheit 04/23/19 25 Weight 140 lbs 04/23/2024 Encounters Encounter Location Date Provider Diagnosis [facility] [address] [place] [phone] 04/23/2024 Adolfo Dawn Iron deficiency anem ia [...] use (ICD-10 - Z79.82) PLAN OF TREATMENT Treatment Notes Assessment Notes Iron deficiency anemia Stop Iron and Aspirin for 1 week before the procedures Do not take the Metformin the night before or on the morning of the procedures Pending Test Test Name Order Date IRON + IBC (FE) 04/23/2024 CBC w DIFF 04/23/2024 Ferritin 04/23/2024 Future Test Test Name Order Date UPPER GI ENDOSCOPY 04/23/2024 COLONOSCOPY 04/23/2024 Next Appt Details Provider Name:Adolfo Dawn , 04/30/2024 11:50:00 AM, [address] [place] [address] , [place], [place], [phone],
--- NOTE | 2024-05-06 13:31 | P.CONAN_ITS ---
Documented by User: Mariza Worthy NP 05/06/24 13:31 HPI - Anesthesia Eval Consult details Narrative: 73yo F for Upper Endoscopy and Colonoscopy [facility] Active Problems Active Problems: All Active Problems H/O colonoscopy (Acute) Anemia (Acute) Cough (Acute) Hearing loss (Acute) DM retinopathy (Acute) Pneumonia (Acute) Annual physical exam (Acute) Colon cancer screening (Acute) Hearing difficulty (Acute) Pain in right ankle and joints of right foot (Acute) Diabetes (Acute) Hyperlipidemia (Acute) Lumbar degenerative disc disease (Acute) Past Medical History Medical History Annual physical exam Colon cancer screening Hearing difficulty Hyperlipidemia Lumbar degenerative disc disease Chronic asthma Diabetic eye exam History of mammogram Diabetes Family History Family History Father Lung cancer Lymphoma Esophageal cancer Smoker Brother Cancer of prostate Sister Breast cancer Surgical History Surgical History H/O colonoscopy No pertinent past surgical history Social History Social History Housing: House Alcohol intake: current Alcohol intake frequency: holidays/special occasions only Patient Tobacco Use Status: Never used Tobacco e-Cigarette/Vaping Use: Never Used Second Hand Smoke Exposure: Yes Use of substances other than those prescribed or required for medical reasons: No Have you been hit, kicked, punched, or otherwise hurt by someone within the past year? If so, by whom?: No Are you DNR?: No Advance Directives: No Advance Directives Information Provided: Yes service: No Current occupational status: retired Cognitive needs: No Hearing needs: No Vision needs: No Meds Allergies Allergy/AdvReac Type Severity Reaction Status Date / Time losartan Allergy Unknown cough, Verified 12/28/23 09:52 URI, cough atorvastatin AdvReac Intermediate Joint Pain Verified 12/28/23 09:52 simvastatin AdvReac Intermediate Muscle Verified 12/28/23 09:52 cramps Home Medications ?Medication ?Instructions ?Recorded ?Confirmed ?Last Taken ?Type aspirin 81 mg tablet,delayed 81 mg PO DAILY 12/28/23 12/28/23 Unknown History release Assessment and Plan Assessment Anesthesia Assessment: Chart Reviewed Documented by User: Indu Taylor MD 05/07/24 09:04 [facility] Past Medical History Medical History Annual physical exam Colon cancer screening Hearing difficulty Hyperlipidemia Lumbar degenerative disc disease Chronic asthma Diabetic eye exam History of mammogram Diabetes Family History Family History Father Lung cancer Lymphoma Esophageal cancer Smoker Brother Cancer of prostate Sister Breast cancer Family history of problems with anesthesia: No Surgical History Surgical History H/O colonoscopy No pertinent past surgical history History of Problems with Anesthesia: No Social History Social History Housing: House Alcohol intake: current Alcohol intake frequency: holidays/special occasions only Patient Tobacco Use Status: Never used Tobacco e-Cigarette/Vaping Use: Never Used Second Hand Smoke Exposure: Yes Use of substances other than those prescribed or required for medical reasons: No Have you been hit, kicked, punched, or otherwise hurt by someone within the past year? If so, by whom?: No Are you DNR?: No Advance Directives: No Advance Directives Information Provided: Yes service: No Current occupational status: retired Cognitive needs: No Hearing needs: No Vision needs: No Meds Allergies Allergy/AdvReac Type Severity Reaction Status Date / Time losartan Allergy Unknown cough, Verified 12/28/23 09:52 URI, cough atorvastatin AdvReac Intermediate Joint Pain Verified 12/28/23 09:52 simvastatin AdvReac Intermediate Muscle Verified 12/28/23 09:52 cramps Home Medications ?Medication ?Instructions ?Recorded ?Confirmed ?Last Taken ?Type aspirin 81 mg tablet,delayed 81 mg PO DAILY 12/28/23 12/28/23 Unknown History release Exam Airway Mallampati Class: II TM Dist: >3cm Neck ROM: Limited Heart: rrr Assessment and Plan Assessment Anesthesia Assessment: Anesthesia Plan Discussed Final Anesthetic Review Family History of Problems with Anesthesia: No History of Problems with Anesthesia: No NPO: Yes ASA Class: III Final Preanesthetic Review: No Changes in Pt Med Stat, Meds/Allgs Chart Reviewed, Consent Obtained/Reviewed and Anes Risks/Benef Reviewed Patient Risk: Intermediate Procedure Risk: Low Anesthetic Plan Anesthetic Plan: MAC: Disposition: Standard PACU
[2024-05-07 08:43] VITALS: BMI 26.6
--- OUTSIDE RECORDS SUMMARY | 2024-05-07 08:52 | XMS_ITS ---
Author [facility] Address [address] [place] [address] Care Team Providers Care Forest Ecology Professor Name Role Phone Mery Franco MD Primary Care Provider Unavaila Alberto Hays Unavailable [phone] Allergies Allergen (clinical drug ingredient) Drug/Non Drug [...] day Not-Taking MetroCream 0.75 % 1 application Mold Closer ally Twice a day Not-Taking Ketoconazole 200 [...] Ordered Date Performed Result Body Sit e 88692-DBVPUXE NAIL, 6 OR MORE 2023 N/A 01414-LDQR SKIN LESIONS, OVER 4 2023 N/A Encounters Encounter Location Date Provider Diagnosis [facility] [address] [place] [address] 2023 Alberto Guo Type 2 diabetes mellitus [...] Treatment Pending Test Test Name Order Date 38614-KPFUWNZ NAIL, 6 OR MORE 2023 59093-OQRH SKIN LESIONS, OVER 4 07/27/19 24 Next Appt Details Follow Up: prn, Reason: Provider Name:Alberto Guo , 06/03/2024 08:45:00 AM, [address] [place] [address], [phone], Procedure Notes * Category Sub-Category Detail Notes [...] as necessary. Patient chooses, no pharmaceutical tx (24406) Keratoma Treatment Parring or Cutting o f Benign Hyperkeratotic Lesion(s) 45495 ( >4 Lesions) - The Benign hyperkeratotic lesions, as described above were pared, and/or cut utilizing a sterile #15 blade, tissue nippers, and/or dremel, Q8 Progress Notes * Alexander GARCÍAOB:[birth year] (72 yo F)Acc No.[id number]:2023 Progress Note Patient:?JoseEdwardo Provider:?Alberto Guo DPM :1950???Age:72 Y???Sex:Female D ate:2023 Address:[address], [id number] Pcp:Mery Franco MD Subjective: * Chief Complaints: [...] for Sister. ?Marital status: . 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 * Medications:?TakingAspirin 8 1 MG [...] to treatment,Improvement? Plan: * Treatment: 2.?Tinea unguium?Procedure: 19001-HGXQDUT NAIL, 6 OR MORE * Procedures:?Debride Nail 6-10:?Nail debridement?Nail debridement performed extensively to reduce/remove overall nail length, girth, thickness, subungual debris, and necrotic tissue, by manual and electrical means through the use of a nail nipper and/or dremel, to more viable healthy nail plate or bed tissue 1-5. Silver nitrate used for any petechial bleeding as necessary. Patient chooses, no pharmaceutical tx (28734).?Keratoma Treatment:?Parring or Cutting of Benign Hyperkeratotic Lesion(s)?91605 ( >4 Lesions) - The Benign hyperkeratotic lesions, as described above were pared, and/or cut utilizing a sterile #15 blade, tissue nippers, and/or dremel, Q8.? * Procedure Codes:?88760 DEBRI DE NAIL, 6 OR MORE, Modifiers: XS 16871 TRIM SKIN LESIONS, OVER 4, Modifiers: XS [...] Guo DPM Date:?2023 Generated for Fadi menjivar/Gricelda/Kye on:?05/07/2024 08:52 AM EST History and Physical Notes * [...]
--- OUTSIDE RECORDS SUMMARY | 2024-05-07 08:52 | XMS_ITS ---
Author Organization [facility] Address [address] [place] [address] Care Team Providers Care Configuration Management Advisor Name Role Phone Mery Franco MD Primary Care Provider Unavaila Alberto Hays Unavailable [phone] Allergies Allergen (clinical drug ingredient) Drug/Non Drug [...] day(s) Not-Taking MetroCream 0.75 % 1 application Retail Management Keyholder ally Twice a day Not-Taking Aspirin 81 [...] an other tobacco user? No Vital Signs Blood pressure systolic 120 mm Hg 02/01/20 24 Blood pressure diastolic 65 mm Hg 024 Height 5ft in 02/01/2024 Weight 138 lbs 02/01/2024 BMI 26.95 kg/m2 02/01/2024 Procedures Procedure Date Ordered Date Performed Result Body Sit e 13002-UCUXMZX NAIL, 6 OR MORE 02/01/2024 N/A 22294-EDZB SKIN LESIONS, OVER 4 02/01/2024 N/A Encounters Encounter Location Date Provider Diagnosis [facility] [address] [address] 02/01/2024 Alberto Guo Type 2 diabetes mellitus [...] INSTRUCTIONS.pdf) Pending Test Test Name Order Date 54297-AQKFIFZ NAIL, 6 OR MORE 02/01/2024 19003-QEHL SKIN LESIONS, OVER 4 02/01/20 24 Next Appt Details Follow Up: prn, Reason: Provider Name:Alberto Guo , 06/03/2024 08:45:00 AM, [address] [place] [address], [phone], Procedure Notes * Category Sub-Category Detail Notes Debride Nail 6-10 Nail debridement Performance o f this nail treatment by a nonprofessional would put this patients foot and overall health at risk. Therefore, nail debridement was performed extensively to reduce/remove overall nail length, girth, thickness, subungual debris, and necrotic tissue, by manual and/or electrical means through the use of a nail nipper and/or dremel-type wood grinder operator, to a more viable healthy nail plate or bed tissue 6-10. Silver nitrate used for any petechial bleeding as necessary. Definitive antifungal treatment options have been reviewed and discussed with the patient. The patient chooses, no pharmaceutical tx - 44540 Keratoma Treatment Parring or Cutting o f Benign Hyperkeratotic Lesion(s) (-57) More than 4 Lesions - The Benign hyperkeratotic lesions, as described above were pared, and/or cut utilizing a sterile 15 blade, tissue nippers, and/or dremel - 28137 , Q8 Progress Notes * Alexander GARCÍAOB:[birth year] (73 yo F)Acc No.[id number]:02/01/2024 Progress Note Patient:?Edwardo GARCÍA Provider:?Alberto Guo DPM :1950???Age:73 Y???Sex:Female D ate:02/01/2024 Address:[address] [place] [phone] Pcp:Mery Franco MD Subjective: * Chief Complaints: [...] for Sister. ?Marital status: . 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 * Medications:?TakingAspirin 8 1 MG Tablet 1 [...] mellitus with diabetic peripheral angiopathy without gangrene?Procedure: 03281-OAXA SKIN LESIONS, OVER 4 3.?Tinea unguium?Procedure: 52215-TBZHVVR NAIL, 6 OR MORE * Procedures:?Debride Nail 6-10:?Nail debridement?Performance of this nail treatment by a nonprofessional would put this patients foot and overall health at risk. Therefore, nail debridement was performed extensively to reduce/remove overall nail length, girth, thickness, subungual debris, and necrotic tissue, by manual and/or electrical means through the use of a nail nipper and/or dremel-type wood grinder operator, to a more viable healthy nail plate or bed tissue 6-10. Silver nitrate used for any petechial bleeding as necessary. Definitive antifungal treatment options have been reviewed and discussed with the patient. The patient chooses, no pharmaceutical tx - 57791.?Keratoma Treatment:?Parring or Cutting of Benign Hyperkeratotic Lesion(s)?(-57) More than 4 Lesions - The Benign hyperkeratotic lesions, as described above were pared, and/or cut utilizing a sterile 15 blade, tissue nippers, and/or dremel - 24513 , Q8.? * Procedure Codes:?31695 DEBRI DE NAIL, 6 OR MORE, Modifiers: XS 60298 TRIM SKIN LESIONS, OVER 4, Modifiers: XS [...] Guo DPM Date:?2023 Generated for Fadi menjivar/Gricelda/Buzzsmitting on:?05/07/2024 08:51 AM EST History and Physical Notes * [...]
--- OUTSIDE RECORDS SUMMARY | 2024-05-07 08:52 | XMS_ITS | Patient Health Record ---
Author Organization [facility] Address [address] [place] [address] Care Team Providers Care Nurse Transitional Name Role Phone Mery Franco MD Primary Care Provider Unavaila ble Alberto Guo Unavailable [phone] Allergies Allergen (clinical drug ingredient) Drug/Non Drug [...] Referring Provider Last Name Salvador Referred Organization [facility] Referred Provider Alberto Guo Referred Address [address],[place], [place],[address],[place] Referred Provider Specialty Podiatry Referral Priority Routine [...] PRN Active MetroCream 0.75 % 1 application Ordnance Handler ally Twice a day Not-Taking Clindamycin Phosphate 1 % 1 application Externally Twice a day Not-Taking Immunizations Vaccine Route Administration Date Status Comme nts COVID-19 Carlos Manuel & Carlos Manuel/Sabi Unknown 07/15/2021 Refused Influenza Unknown 03/19/2019 Refused DOSEN'T GET TH EM. Social History Tobacco Use: Social History Observation [...] Problem Acquired hammer toe of right foot (5766278138051 105) Other hammer toe(s) (acquired), right foot (M20.41) Active confirmed Response to treatment,I mprovement Problem Type 2 diabetes mellitus with peripheral angiopathy (954474280) Type 2 diabetes mellitus with diabetic peripheral angiopathy without gangrene (E11.51) Active confirmed Problem Acquired hammer toe of left foot (7712424002400 103) Other hammer toe(s) (acquired), left foot (M20.42) Active confirmed Response to treatment,I mprovement Vital Signs Blood pressure diastolic 65 mm Hg 02/01/2024 Height 5ft in 02/01/2024 Blood pressure systolic 120 mm Hg 02/01/2024 Weight 138 lbs 02/01/2024 BMI 26.95 kg/m2 02/01/2024 Procedures Procedure Date Ordered Date Performed Result Body Sit e 48391-MWWYSEO NAIL, 6 OR MORE 2023 N/A 76815-MOEJ SKIN LESIONS, OVER 4 2023 N/A 07316-VHDRAED NAIL, 6 OR MORE 02/01/2024 N/A 43004-XOYV SKIN LESIONS, OVER 4 02/01/2024 N/A Encounters Encounter Location Date Provider Diagnosis [facility] [address] 2023 Alberto Guo Type 2 diabetes mellitus with diabetic peripheral angiopathy without gangrene E11.51 ; Tinea unguium B35.1 ; Pain in right toe(s) M79.674 ; Pain in left toe(s) M79.675 ; Other hammer toe(s) (acquired), right foot M20.41 and Other hammer toe(s) (acquired), left foot M20.42 [facility] [address] 02/01/2024 Alberto Santosunier Type 2 diabetes mellitus [...] Treatment Pending Test Test Name Order Date 78303-WILYHWM NAIL, 6 OR MORE 06/05/2013 13414-YGDAAFO NAIL, 6 OR MORE 08/28/2013 09128-MEZBIJU NAIL, 6 OR MORE 12/03/2013 70740-NMFRDTB NAIL, 6 OR MORE 03/04/2014 32572-ZTCBGAA NAIL, 6 OR MORE 12/24/2020 38194-JATWIHA NAIL, 6 OR MORE 07/15/2021 43941-DTNQHIL NAIL, 6 OR MORE 02/21/2022 90241-FNUIWKW NAIL, 6 OR MORE 09/01/2022 97004-MZFKUKQ NAIL, 6 OR MORE 01/26/2023 59058-PMFKIRF NAIL, 6 OR MORE 2023 99801-GWJPQQY NAIL, 6 OR MORE 02/01/2024 02851-LEMO SKIN LESIONS, OVER 4 02/01/20 24 46529-SNQP SKIN LESIONS, OVER 4 07/27/19 24 51912-EREU SKIN LESIONS, OVER 4 01/27/20 23 90921-YHHV SKIN LESIONS, OVER 4 09/02/19 23 89315-SPKE SKIN LESIONS, OVER 4 02/22/20 22 99474-MFMC SKIN LESIONS, OVER 4 03/19/20 19 Next Appt Details Provider Name:Alberto Guo , 06/03/2024 08:45:00 AM, [address], [place], [address], Insurance Providers Payer Name Payer Address Payer Phone Subscriber Number Group Number Insured Name Patient Relationship to Insured Coverage Start Date Coverage End Date [facility] 65 Medicare Preferred [address] [place] [address] [id number] Edwardo Borjas Self - patient is the insured Medical (General) History Medical History History ICD Code asthma type II diabetes Gall bladder problems-out Hypertension Hyperlipidemia covid-19 Surgical History Surgery Date(Month/Year) gall bladder 1979
--- OUTSIDE RECORDS SUMMARY | 2024-05-07 08:52 | XMS_ITS ---
Author Organization [facility] Address [address] [place] [address] Care Team Providers Care Galley Boy Name Role Phone Mery Franco MD Primary Care Provider Adolfo Broussard Unavailable [phone] REASON FOR VISIT iron def anemia, history of polyps Encounters Encounter Location Date Provider Diagnosis [facility] Outpatient [address] [place] [phone] 05/07/2024 Adolfo Dawn PLAN OF TREATMENT Next Appt Details Provider Name:Adolfo Dawn , 05/07/2024 09:40:00 AM, [address] [place] [address], [phone],
--- OUTSIDE RECORDS SUMMARY | 2024-05-07 08:52 | XMS_ITS ---
Author Organization [facility] Address [address] [place] [address] Care Team Providers Care Litharge Mill Operator Name Role Phone Mery Franco MD Primary Care Provider Unavaila Alberto Hays Unavailable [phone] Nicole Encounters Encounter Location Date Provider Diagnosis [facility] [address] [place] [address] 01/25/2024 Alberto Guo Plan Of Treatment Next Appt Details Provider Name:Alberto Guo , 06/03/2024 08:45:00 AM, [address] [place], [address], Progress Notes * Alexander GARCÍAOB:[birth year] (73 yo F)Acc No.[id number]:01/25/2024 Progress Note Patient:?Jose Carlos GARCÍAan Provider:?Alberto Guo DPM :1950???Age:73 Y???Sex:Female D ate:01/25/2024 Address: [id number] Pcp:Mery Franco MD Subjective: * Chief Complaints: [...]
--- OUTSIDE RECORDS SUMMARY | 2024-05-07 08:53 | XMS_ITS ---
Author Organization [facility] Address [address] [place] [address] Care Team Providers Care Assessment Technician Name Role Phone Mery Franco MD Primary Care Provider Adolfo Broussard Unavailable [phone] REASON FOR VISIT H & P Encounters Encounter Location Date Provider Diagnosis [facility] [address] [place] [address] 05/06/2024 Adolfo Dawn PLAN OF TREATMENT Next Appt Details Provider Name:Adolfo Dawn , 05/07/2024 09:40:00 AM, [address] [place] [address] , [place], [place], [phone],
--- OUTSIDE RECORDS SUMMARY | 2024-05-07 08:53 | XMS_ITS | Patient Health Record ---
Author Organization [facility] Address [address] [place] [address] Care Team Providers Care Poly Packer And Heat Sealer Name Role Phone Mery Franco MD Primary Care Provider Adolfo Broussard Unavailable [phone] ALLERGIES Allergen (clinical drug ingredient) Drug/Non Drug Allergy documented on EMR Reaction Allergy Type Onset Date Status diphenhydramine Antihistamine Unknown Drug Allergy Active RESULTS Component Value Reference Range Notes Ferritin Reviewed date:04/24/2024 09:37:17 PM Interpretation: Performing Lab:[facility], [address] [place] [phone] Notes/Report: Ferritin 15 10-250 ng/mL Complete Blood Count Auto Di ff Reviewed date:04/24/2024 09:38:06 PM Interpretation: Performing Lab:[facility], [address] [place] [phone] Notes/Report: White Blood Count 5.9 4.8-10.8 X10*3/uL Red Blood Count 4.44 4.20-5.50 X10*6/uL Hemoglobin 12.3 12.0-16.0 g/dl Hematocrit 37.5 37.0-47.0 % Mean Corpuscular Volume 84.5 80.0-98.0 fL Mean Corpuscular Hemoglobin 27.7 27.0-33.0 pg Mean Corpuscular HGB Conc 32.8 31.0-35.0 g/dl Red Cell Distribution Width 14.3 11.0-16.0 % Platelet Count 210 160-400 X10*3/uL Mean Platelet Volume 11.2 9.4-12.3 fL Neutrophils Percent Auto 57.3 45-73 % Imm Gran Pct Auto 0.3 0.0-0.4 % Lymphocytes Percent Auto 34.0 20-40 % Monocytes Percent Auto 4.9 2-11 % Eosinophils Percent Auto 3.0 0-4 % Basophils Percent Auto 0.5 0-2 % NRBC Pct Auto 0.0 0.0-0.2 /100WBC Neutrophils Absolute Auto 3.4 2.0-8.3 x10*3/u L Imm Gran Abs Auto 0.02 0.00-0.03 X10*3/uL Lymphocytes Absolute Auto 2.0 1.2-4.9 X10*3/u L Monocytes Absolute Auto 0.3 0.1-1.2 X10*3/uL Eosinophils Absolute Auto 0.2 0.0-0.4 X10*3/u L Basophils Absolute Auto 0.0 0.0-0.2 X10*3/uL NRBC Abs Auto 0.000 0.0-0.012 X10*3/uL IRON PROFILE Reviewed date:04/24/2024 09:37:46 PM Interpretation: Performing Lab:[facility], [address] [place] [phone] Notes/Report: Iron 57 30-160 mcg/dL Total Iron Binding Capacity 315 228-428 mcg/d L Percent Iron Saturation 18 15-50 % Unsaturated Iron Binding 258 REASON FOR REFERRAL No Information MEDICATIONS Medication [...] malignant neoplasm of colon (Z12.11) Active confirmed 388624493 Problem History of adenomatous polyp of colon (Z86.010) Active confirmed 062574850 Problem Iron deficiency anemia (D50.9) Active confirmed Iron deficiency anemia (33928294) Problem Preprocedural examination (Z01.818) Active confirmed 054501134 Problem Aspirin long-term use (Z79.82) Active confirmed 618034259 VITAL SIGNS Temperature 97.5 degrees Fahrenheit 04/23/2024 Blood pressure diastolic 00 mm Hg 04/23/2024 Height 59.25 in 04/23/2024 Blood pressure systolic 000 mm Hg 04/23/2024 Weight 140 lbs 04/23/2024 BMI 28.04 kg/m2 04/23/2024 Encounters Encounter Location Date Provider Diagnosis [facility] Out[facility] [address] [place] [id number] 04/30/2024 Adolfo Dawn [facility] Outpatient [address] [place] [id number] 05/07/2024 Adolfo Dawn [facility] [address] [place] [phone] 04/23/2024 Adolfo Dawn Iron deficiency anemia D50.9 ; History of adenomatous polyp of colon Z86.010 and Aspirin long-term use Z79.82 [facility] [address] [place] [phone] 04/28/2024 Adolfo Dawn [facility] [address] [place] [phone] 05/06/2024 Adolfo Dawn ASSESSMENTS Encounter Date Diagnosis Assessment Notes Treatment Notes Treatment Clinical Notes 04/23/2024 History of adenomatous polyp of colon (ICD-10 - Z86.010) 04/23/2024 Iron deficiency anemia (ICD-10 - D50.9) Stop Iron and Aspirin for 1 week before the procedures Do not take the Metformin the night before or on the morning of the procedures 04/23/2024 Aspirin long-term use (ICD-10 - Z79.82) PLAN OF TREATMENT Pending Test Test Name Order Date IRON + IBC (FE) 04/23/2024 CBC w DIFF 04/23/2024 Future Test Test Name Order Date COLONOSCOPY 12/29/2011 COLONOSCOPY 08/31/2016 UPPER GI ENDOSCOPY 04/23/2024 COLONOSCOPY 04/23/2024 Next Appt Details Provider Name:Adolfo Acevedo López , 05/07/2024 09:40:00 AM, [address] [place] [address], [phone], Insurance Providers Payer Name Payer Address Payer Phone Subscriber Number Group Number Insured Name Patient Relationship to Insured Coverage Start Date Coverage End Date [facility] [address] [place] [address] [phone] [id number] ARY HERNANDEZ Self - patient is the insured MEDICAL (GENERAL) HISTORY Medical History History ICD Code History of ulcers in her 20's Colonoscopy in 2001--- tubul ar adenoma and hyperplastic polyps removed in 2001 HTN NIDDM Herniated discs--lower back Denies [place],CVA,renal disease Colonoscopy 01/2012--hyperpl astic polyp, diverticulosis, internal hemorrhoids Asthma Colonoscopy 2016 with small tubular shant omas removed Iron def anemia noted in 2023 Surgical History Surgery Date(Month/Year) Cholecystectomy
--- OUTSIDE RECORDS SUMMARY | 2024-05-07 08:53 | XMS_ITS ---
Author Organization [facility] Address [address] [place] [address] Care Team Providers Care Collar Band Creaser Name Role Phone Mery Franco MD Primary Care Provider Adolfo Broussard Unavailable [phone] REASON FOR VISIT iron def anemia, hx of polyps Encounters Encounter Location Date Provider Diagnosis [facility] Outpatient [address] [place] [id number] 04/30/2024 Adolfo Dawn PLAN OF TREATMENT Next Appt Details Provider Name:Adolfo Dawn , 05/07/2024 09:40:00 AM, [address] [place] [address], [phone],
[2024-05-07 08:59] VITALS: BP 135/93; PULSE 85; RESP 16; TEMP 36.6; O2SAT 98
--- NOTE | 2024-05-07 09:00 | ECG_ITS ---
Test Reason : short stay Blood Pressure : */* mmHG Vent. Rate : 80 BPM Atrial Rate : 80 BPM P-R Int : 178 ms QRS Dur : 70 ms QT Int : 386 ms P-R-T Axes : 33 -25 18 degrees QTcB Int : 445 ms Normal sinus rhythm Inferior infarct , age undetermined Anterior infarct , age undetermined Abnormal ECG No previous ECGs available Referred By: Indu Taylor Electronically Signed By: DANN DOWD MD
[2024-05-07 09:04] LABS: Glucose, Whole Blood 158 mg/dL (60-115)
[2024-05-07] MEDS: Lactated Ringers 1,000 ML 100 ML IVCONT (09:06)
[2024-05-07 10:25] VITALS: BP 122/67; PULSE 85; RESP 16; TEMP 36.1; O2SAT 98
--- NOTE | 2024-05-07 10:37 | P.BOP_ITS ---
Brief Operative Note Date of Service: 05/07/24 Pre-op diagnosis: Iron deficiency anemia Post-op diagnosis: other (R/O celiac disease, Mild gastritis, Diverticulosis) Procedure: EGD with biopsies, Colonoscopy to the cecum and TI with biopsies Surgeon: Adoflo Dawn MD Anesthesia: MAC Was an Corporate Law Assistant used for this Procedure?: No Estimated blood loss (mL): 2.0 Pathology: other (A. Descending duodenum B. Gastric antrum C. Cecum) Condition: stable Disposition: PACU
[2024-05-07 10:40] VITALS: BP 133/69; PULSE 85; RESP 16; O2SAT 98
[2024-05-07 10:51] VITALS: BP 135/73; PULSE 82; RESP 16; TEMP 36.4; O2SAT 98
--- NOTE | 2024-05-07 11:00 | OP_ITS ---
DATE OF SERVICE: 05/07/2024 SURGEON: Adolfo Dawn MD INDICATIONS: The patient presents for evaluation of iron deficiency anemia and personal history of tubular adenoma of the colon. Full consent was obtained from her for this, including risks of bleeding and perforation. PREOPERATIVE DIAGNOSIS: POSTOPERATIVE DIAGNOSIS: PROCEDURE PERFORMED: ESTIMATED BLOOD LOSS: COMPLICATIONS: ANESTHESIA: Monitored anesthesia care. ASSISTANTS: SPECIMENS: PREOPERATIVE DIAGNOSES: Iron deficiency anemia and personal history of tubular adenoma of the colon. POSTOPERATIVE DIAGNOSES: Iron deficiency anemia and personal history of tubular adenoma of the colon, rule out celiac disease, mild gastritis, diverticulosis and internal hemorrhoids. PROCEDURES PERFORMED: Esophagogastroduodenoscopy with biopsies, colonoscopy to the cecum and terminal ileum with biopsy. DESCRIPTION OF PROCEDURE: The patient was placed in left lateral decubitus position. The Olympus video gastroscope was passed in the posterior oropharynx and upper esophagus under direct vision. The scope was passed slowly to the distal esophagus. The gastroesophageal junction appeared normal at 35 cm. There was no sign of any esophagitis. The scope entered the stomach. There was a minimal hiatal hernia. The scope was advanced to the pylorus and the duodenum was cannulated to the descending portion. The duodenum including the bulb appeared normal without mass or ulceration. Biopsies were obtained in the descending duodenum and duodenal bulb. The scope was withdrawn back to the stomach. The gastric antrum had some areas of erythema and edema, but no erosions or ulceration. There was good peristalsis. Biopsies were obtained from the antrum. The scope was retroflexed visualizing the proximal stomach carefully, which appeared normal, without any sign of mass or ulceration. The scope was straightened and withdrawn back to the esophagus. The esophageal mucosa appeared normal. The scope was withdrawn from the patient. She was turned around for colonoscopy. The digital rectal exam revealed no abnormalities. The Olympus video pediatric colonoscope was entered into the rectum and advanced easily to the cecum. Once in the cecum, I did identify cecal pouch with appendiceal orifice and a normal-appearing ileocecal valve. There was transillumination of light deep in the right lower quadrant. The terminal ileum was cannulated and appeared normal. The scope was withdrawn back in the colon. The entire cecum was well visualized and appeared normal other than an approximately 10 mm area of some edema and erythema with a tiny bit of ulceration. This was not a mass. Two biopsies were obtained from it. The remainder of the cecum appeared normal. The scope was then slowly withdrawn assessing all mucosal surfaces carefully. Preparation was excellent. I did not visualize any sign of polyps, colitis, nor angiodysplasia. There was a mild amount of sigmoid diverticulosis. In the rectum, scope was retroflexed visualizing internal hemorrhoids, but no other pathology. The rectal mucosa appeared normal. The scope was straightened and withdrawn from the patient. She tolerated the procedures well and was returned to the recovery area in stable condition. IMPRESSION: 1. Rule out celiac disease. 2. Mild gastritis. 3. Small area of inflammation in cecum, status post biopsy. 4. Diverticulosis. 5. Internal hemorrhoids. PLAN: The results of the biopsies will be checked. These findings would not account for her previous anemia. However, her most recent laboratories from earlier this month, after having been on Iron for a few months, did show improvement with a normal hemoglobin now of 12.3 with a normal MCV. Her most recent hemoglobin had been 10.4 with MCV of 81 in December. Her ferritin was borderline low at 15, but her iron and iron saturation were normal at 57 and 18% respectively. She has been off her aspirin for a couple of weeks now and at this point, I have advised her to stay off that as she has no particular definitive indication for that from a cardiovascular standpoint, although I did advise her to speak with her primary care physician about that to be sure that is OK with her.. I did advise her to resume her iron and stay on that long-term as well. I will plan to see her in followup in the office. At this point, I would hold off on having her undergo a small bowel capsule study given the normalization of her hemoglobin and a low yield on that as she has no symptoms. However, if she develops recurrent anemia, then we would definitely consider that. However, in the meantime, she will continue her daily iron and hold off on aspirin if that is OK with her primary care physician. She was advised to stay off all NSAIDs as well. She will be seen later this year for followup. Given today's negative colonoscopy as well as a negative exam in 2011 and just minimal findings in 2017, I do not think she would need any further screening colonoscopies going forward. MD KIKI Neely/KINGS / [id number] LAZARO
== END 2024-05-07 11:12 | disposition home or self-care (01) ==
PROVIDERS: PCP Internal Medicine; Visit Provider Internal Medicine
PROC: (CPT 45380; principal; 2024-05-07 09:40)
DX: D50.9 Iron deficiency anemia, unspecified (principal); Z86.0101 Personal history of adenomatous and serrated colon polyps; K57.30 Diverticulosis of large intestine without perforation or abscess without bleeding; K64.8 Other hemorrhoids; K29.50 Unspecified chronic gastritis without bleeding; K44.9 Diaphragmatic hernia without obstruction or gangrene; E11.9 Type 2 diabetes mellitus without complications; Z79.82 Long term (current) use of aspirin; Z79.84 Long term (current) use of oral hypoglycemic drugs; Z79.899 Other long term (current) drug therapy; Z88.8 Allergy status to other drugs, medicaments and biological substances
CPT/HCPCS: 45380; 43239; 82947; 88305; 88341; 88342; 93005; J2704

== ENCOUNTER → 2024-05-07 09:00 | Outpatient (BNV) | payer MEDICARE, SELFPAY | PROVIDERS: PCP Internal Medicine; Visit Provider Internal Medicine Cardiovascular Disease | DX: R94.31 Abnormal electrocardiogram [ECG] [EKG] (principal) | CPT/HCPCS: 93010 ==

== ENCOUNTER 2024-05-26 08:45 | Outpatient (REF) | payer MEDICARE, SELFPAY ==
--- OUTSIDE RECORDS SUMMARY | 2024-05-26 09:09 | XMS_ITS | Patient Health Record ---
Author Organization [facility] Address [address] [place] [address] Care Team Providers Care Waitangi Tribunal Member Name Role Phone Amy Herrera Unavailable [phone] Reason For Referral No Information Medications Medication SIG (Take, Route, Frequency, Duration) Notes Start Date End Date Status Ferrous Sulfate 325mg 1 ORAL three times daily for -3 [facility] 06/28/2012 Active Januvia 1 ORAL daily for -3 [facility] 12/30/2013 Active valACYclovir HCl 500MG 2 ORAL three time s each day for 7 [facility] 01/20/2014 Active Aspirin EC 81MG 1 ORAL daily for -3 [facility] 06/29/2011 Active Cozaar 50MG 1 ORAL daily for -3 [facility] 11/13/2011 Active Premarin 0.625MG/GM 1g Vaginal every oth er day for -3 [facility] 01/20/2014 Active Accu-Chek Compact Test Drum ORAL for -3 [facility] 07/25/2011 Active SMZ-TMP DS 800-160MG 1 ORAL twice each d ay for 7 [facility] 01/27/2014 Active Multivitamins 1 ORAL daily for -3 [facility] 12/30/2013 Active metFORMIN HCl 500MG 1 ORAL twice daily f or -3 [facility] 06/28/2012 Active Immunizations Vaccine Route Administration Date Status Comme nts Influenza, live, intranasal Intramuscular 04/19/2011 Pendi ng Influenza, live, intranasal Intramuscular 06/29/2011 Pendi ng Problems Problem Type SNOMED Code ICD Code Onset Dates Problem Status W/U Status Risk Notes Problem Candidal vulvovaginitis (30076571) Candidiasis of vulva and vagina (112.1) Active confirmed Other Problem Leiomyoma of uterus (72915325) Leiomyoma of uterus, unspecified (218.9) Active confirmed Other Problem Type II diabetes mellitus without complication (691726244) Diabetes mellitus without mention of complication, type II or unspecified type, not stated as uncontrolled (250.00) Active confirmed Major Problem Type II diabetes mellitus uncontrolled (656968062) Diabetes mellitus without mention of complication, type II or unspecified type, uncontrolled (250.02) Active confirmed Major Problem Hyperlipidemia (61497852) Other and unspecified hyperlipidemia (272.4) Active confirmed Major Problem Anemia (461959265) Unspecified anemia (285.9) Active confirmed Major Problem Essential hypertension (85234389) Unspecified essential hypertension (401.9) Active confirmed Major Problem Abnormal vaginal bleeding (289276910) Other disorder of menstruation and other abnormal bleeding from female genital tract (626.8) Active confirmed Major Problem Postmenopausal bleeding (49935785) Postmenopausal bleeding (627.1) Active confirmed Diag Problem Menopausal symptom (32280064) Symptomatic menopausal or female climacteric states (627.2) Active confirmed Major Problem Generalized osteoarthritis (disorder) (599558825) Generalized osteoarthrosis, unspecified site (715.00) Active confirmed Major Problem Joint pain (finding) (67149706) Pain in joint, site unspecified (719.40) Active confirmed Diag Problem General examination of patient (792895992) Routine general medical examination at health care facility (V70.0) Active confirmed Diag Problem Gynecological examination normal (888763070811475) Routine gynecological examination (V72.31) Active confirmed Major Problem Screening for malignant neoplasm of colon (656350862) Special screening for malignant neoplasms, colon (V76.51) Active confirmed Major Plan Of Treatment No Information Insurance Providers Payer Name Payer Address Payer Phone Subscriber Number Group Number Insured Name Patient Relationship to Insured Coverage Start Date Coverage End Date [facility] [address] [place] [id number] ARY HERNANDEZ Self - patient is the insured
--- OUTSIDE RECORDS SUMMARY | 2024-05-26 09:09 | XMS_ITS | Patient Health Record ---
[facility] Address [address] [place] [address] Care Team Providers Care Development Executive Name Role Phone Mery Franco MD Primary Care Provider Unavaila ble Alberto Guo Unavailable [phone] Allergies Allergen (clinical drug ingredient) Drug/Non Drug [...] Referring Provider Last Name Salvador [facility] Referred Provider Alberto Guo Referred Address [address],[place], [place],[address],[place] Referred Provider Specialty Podiatry Referral Priority Routine [...] PRN Active MetroCream 0.75 % 1 application Medical Reimbursement Manager ally Twice a day Not-Taking Clindamycin [...] Problem Acquired hammer toe of right foot (8310888907000 105) Other hammer toe(s) (acquired), right foot (M20.41) Active confirmed Response to treatment,I mprovement Problem Type 2 diabetes mellitus with peripheral angiopathy (198695334) Type 2 diabetes mellitus with diabetic peripheral angiopathy without gangrene (E11.51) Active confirmed Problem Acquired hammer toe of left foot (7127219527027 103) Other hammer toe(s) (acquired), left foot (M20.42) Active confirmed Response to treatment,I mprovement Vital Signs Blood pressure diastolic 65 mm Hg 02/01/2024 Height 5ft in 02/01/2024 Blood pressure systolic 120 mm Hg 02/01/2024 Weight 138 lbs 02/01/2024 BMI 26.95 kg/m2 02/01/2024 Procedures Procedure Date Ordered Date Performed Result Body Sit e 07180-ITWZELC NAIL, 6 OR MORE 2023 N/A 17057-NWFW SKIN LESIONS, OVER 4 2023 N/A 19579-KEQZAIH NAIL, 6 OR MORE 02/01/2024 N/A 23901-WYIU SKIN LESIONS, OVER 4 02/01/2024 N/A Encounters Encounter Location Date Provider Diagnosis [facility] [phone] 2023 Alberto Guo Type 2 diabetes mellitus with diabetic peripheral angiopathy without gangrene E11.51 ; Tinea unguium B35.1 ; Pain in right toe(s) M79.674 ; Pain in left toe(s) M79.675 ; Other hammer toe(s) (acquired), right foot M20.41 and Other hammer toe(s) (acquired), left foot M20.[address] [facility] [address] 02/01/2024 Alberto Santosunier Type 2 diabetes mellitus [...] Treatment Pending Test Test Name Order Date 92982-[id number] NAIL, 6 OR MORE 06/05/2013 58490-GSLZBKO NAIL, 6 OR MORE 08/28/2013 75491-TCFGQZN NAIL, 6 OR MORE 12/03/2013 98544-VCMQLPV NAIL, 6 OR MORE 03/04/2014 44403-QIMYCVK NAIL, 6 OR MORE 12/24/2020 39002-IYUUYLO NAIL, 6 OR MORE 07/15/2021 29922-NULLPES NAIL, 6 OR MORE 02/21/2022 68328-YASSKPX NAIL, 6 OR MORE 09/01/2022 61433-BSCDQKV NAIL, 6 OR MORE 01/26/2023 44724-LSQMXYN NAIL, 6 OR MORE 2023 12413-DGBZUQU NAIL, 6 OR MORE 02/01/2024 55683-DJKL SKIN LESIONS, OVER 4 02/01/20 24 54277-EALM SKIN LESIONS, OVER 4 07/27/19 24 68078-JZEV SKIN LESIONS, OVER 4 01/27/20 23 49217-YXWO SKIN LESIONS, OVER 4 09/02/19 23 46690-DDXN SKIN LESIONS, OVER 4 02/22/20 22 07345-MGSB SKIN LESIONS, OVER 4 03/19/20 19 Next Appt Details Provider Name:Alberto Guo , 06/03/2024 08:45:00 AM, [address], [place], [address], Insurance Providers Payer Name Payer Address Payer Phone Subscriber Number Group Number Insured Name Patient Relationship to Insured Coverage Start Date Coverage End Date [facility] 65 Medicare Preferred [address] [place] [address] [phone] [id number] Edwardo Borjas Self - patient is the insured Medical (General) History Medical History History ICD Code asthma type II diabetes Gall bladder problems-out Hypertension Hyperlipidemia covid-19 Surgical History Surgery Date(Month/Year) gall bladder 1979
--- OUTSIDE RECORDS SUMMARY | 2024-05-26 09:09 | XMS_ITS ---
Author Organization [facility] Address [address] [place] [address] Care Team Providers Care Unit Controller Name Role Phone Mery Franco MD Primary Care Provider Adolfo Broussard Unavailable [phone] REASON FOR VISIT iron def anemia, history of polyps Encounters Encounter Location Date Provider Diagnosis [facility] [address] [place], [place] [id number] 05/07/2024 Adolfo Dawn PLAN OF TREATMENT Next Appt Details Provider Name:Adolfo Dawn , 09/04/2024 09:40:00 AM, [address], [address], [place], [address],
--- OUTSIDE RECORDS SUMMARY | 2024-05-26 09:09 | XMS_ITS | Patient Health Record ---
Author Organization [facility] Address [address] [place] [address] Care Team Providers Care Boilermaker Welder Name Role Phone Mery Franco MD Primary Care Provider Adolfo Broussard Unavailable [phone] ALLERGIES Allergen (clinical drug ingredient) Drug/Non Drug Allergy documented on EMR Reaction Allergy Type Onset Date Status diphenhydramine Antihistamine Unknown Drug Allergy Active RESULTS Component Value Reference Range Notes Ferritin Reviewed date:04/24/2024 09:37:17 PM Interpretation: Performing Lab:[facility], [address] [place] [phone] Notes/Report: Ferritin 15 10-250 ng/mL Complete Blood Count Auto Di ff Reviewed date:04/24/2024 09:38:06 PM Interpretation: Performing Lab:[facility], [address] [place] [phone] Notes/Report: White Blood Count 5.9 4.8-10.8 X10*3/uL [...] PROFILE Reviewed date:04/24/2024 09:37:46 PM Interpretation: Performing Lab:[facility], [address] [place] [phone] Notes/Report: Iron 57 30-160 mcg/dL Total Iron Binding Capacity 315 228-428 mcg/d L Percent Iron Saturation 18 15-50 % Unsaturated Iron Binding 258 Pathology (Not yet reviewed by provider) Interpretation: Performing Lab:[address] [address] Notes/Report: Glucose, Whole Blood Reviewed date:05/07/2024 12:45:53 PM Interpretation: Performing Lab:[facility], [address] [place] [phone] Notes/Report: Glucose, Whole Blood 158 60-115 mg/dL METER # : [id number] REASON FOR REFERRAL No Information MEDICATIONS Medication [...] malignant neoplasm of colon (Z12.11) Active confirmed 534777211 Problem History of adenomatous polyp of colon (Z86.010) Active confirmed 116597655 Problem Iron deficiency anemia (D50.9) Active confirmed Iron deficiency anemia (36536297) Problem Preprocedural examination (Z01.818) Active confirmed 351076887 Problem Aspirin long-term use (Z79.82) Active confirmed 296753624 VITAL SIGNS Temperature 97.5 degrees Fahrenheit 04/23/2024 Blood pressure diastolic 00 mm Hg 04/23/2024 Height 59.25 in 04/23/2024 Blood pressure systolic 000 mm Hg 04/23/2024 Weight 140 lbs 04/23/2024 BMI 28.04 kg/m2 04/23/2024 Encounters Encounter Location Date Provider Diagnosis [facility] Outpatient [address] [place] [id number] 04/30/2024 Adolfo Dawn [facility] Outpatient [address] [place] [id number] 05/07/2024 Adolfo Dawn [facility] [address] [place] [address] 04/23/2024 Adolfo Dawn Iron deficiency anemia D50.9 ; History of adenomatous polyp of colon Z86.010 and Aspirin long-term use Z79.82 [facility] [address] [place] [address] 04/28/2024 Adolfo Dawn [facility] [address] [place] [address] 05/06/2024 Adolfo Dawn [facility] [address] [place] [address] 05/08/2024 Adolfo Dawn Iron deficiency anemia D50.9 ASSESSMENTS Encounter Date Diagnosis Assessment Notes Treatment Notes Treatment Clinical Notes 04/23/2024 History of adenomatous polyp of colon (ICD-10 - Z86.010) 04/23/2024 Iron deficiency anemia (ICD-10 - D50.9) Stop Iron and Aspirin for 1 week before the procedures Do not take the Metformin the night before or on the morning of the procedures 05/08/2024 Iron deficiency anemia (ICD-10 - D50.9) 04/23/2024 Aspirin long-term use (ICD-10 - Z79.82) PLAN OF TREATMENT Pending Test Test Name Order Date IRON + IBC (FE) 05/08/2024 IRON + IBC (FE) 04/23/2024 CBC w DIFF 05/08/2024 CBC w DIFF 04/23/2024 Ferritin 05/08/2024 Pathology 05/07/2024 Future Test Test Name Order Date COLONOSCOPY 12/29/2011 COLONOSCOPY 08/31/2016 UPPER GI ENDOSCOPY 04/23/2024 COLONOSCOPY 04/23/2024 Next Appt Details Provider Name:Adolfo Dawn , 09/04/2024 09:40:00 AM, [address], [address], [place], [address], Insurance Providers Payer Name Payer Address Payer Phone Subscriber Number Group Number Insured Name Patient Relationship to Insured Coverage Start Date Coverage End Date [facility] [address] [place] [address] [id number] ARY HERNANDEZ Self - patient is the insured MEDICAL (GENERAL) HISTORY Medical History History ICD Code History of ulcers in her 20's Colonoscopy in 2001--- tubul ar adenoma and hyperplastic polyps removed in 2001 HTN NIDDM Herniated discs--lower back Denies [place],CVA,renal disease Colonoscopy 01/2012--hyperpl astic polyp, diverticulosis, internal hemorrhoids Asthma Colonoscopy 2016 with small tubular shant omas removed Iron def anemia noted in 2023 Surgical History Surgery Date(Month/Year) Cholecystectomy
--- OUTSIDE RECORDS SUMMARY | 2024-05-26 09:09 | XMS_ITS ---
Author Organization [facility] Address [address] [place] [address] Care Team Providers Care Retail Sales Teammate Name Role Phone Mery Franco MD Primary Care Provider Adolfo Broussard [phone] REASON FOR VISIT Is f/u required Encounters Encounter Location Date Provider Diagnosis [facility] [address] [place] [address] 05/08/2024 Adolfo Dawn Iron deficiency anemia D50.9 ASSESSMENTS Encounter Date Diagnosis Assessment Notes Treatment Notes Treatment Clinical Notes 05/08/2024 Iron deficiency anemia (ICD-10 - D50.9) PLAN OF TREATMENT Pending Test Test Name Order Date IRON + IBC (FE) 05/08/2024 CBC w DIFF 05/08/2024 Ferritin 05/08/2024 Next Appt Details Provider Name:Adolfo Dawn , 09/04/2024 09:40:00 AM, [address], [address], [place], [address],
--- OUTSIDE RECORDS SUMMARY | 2024-05-26 09:10 | XMS_ITS ---
Author Organization [facility] Address [address] [place] [address] Care Team Providers Care Register Of Deeds Name Role Phone Mery Franco MD Primary Care Provider Unavaila Alberto Hays Unavailable [phone] Nicole Encounters Encounter Location Date Provider Diagnosis [facility] [address] [place] [address] 01/25/2024 Alberto Guo Plan Of Treatment Next Appt Details Provider Name:Alberto Guo , 06/03/2024 08:45:00 AM, [address] [place], [address], Progress Notes * Alexander GARCÍAOB:[birth year] (73 yo F)Acc No.[id number]:01/25/2024 Progress Note Patient:?Jose Carlos GARCÍAan Provider:?Alberto Guo DPM :1950???Age:73 Y???Sex:Female D ate:01/25/2024 Address: [address] [id number] Pcp:Mery Franco MD Subjective: * Chief Complaints: [...] Guo DPM Date:?2023 Generated for Fadi menjivar/Gricelda/Kye on:?05/26/2024 09:10 AM EST
--- OUTSIDE RECORDS SUMMARY | 2024-05-26 09:10 | XMS_ITS ---
[facility] Address [address] [place] [address] Care Team Providers Care Twenty One Dealer Name Role Phone Mery Franco MD Primary Care Provider Unavaila Alberto Hays Unavailable [phone] Allergies Allergen (clinical drug ingredient) Drug/Non Drug [...] day Not-Taking MetroCream 0.75 % 1 application Health Professor ally Twice a day Not-Taking Ketoconazole 200 [...] Ordered Date Performed Result Body Sit e 76992-AIKVGET NAIL, 6 OR MORE 2023 N/A 56714-UIOV SKIN LESIONS, OVER 4 2023 N/A Encounters Encounter Location Date Provider Diagnosis [facility] [address] [place] [address] 2023 Alberto Guo Type 2 diabetes mellitus [...] Treatment Pending Test Test Name Order Date 47943-RWDUBMP NAIL, 6 OR MORE 2023 24659-SFXS SKIN LESIONS, OVER 4 07/27/19 24 Next Appt Details Follow Up: prn, Reason: Provider Name:Alberto Guo , 06/03/2024 08:45:00 AM, [address] [place] [address], [phone], Procedure Notes * Category Sub-Category Detail Notes [...] as necessary. Patient chooses, no pharmaceutical tx (32707) Keratoma Treatment Parring or Cutting o f Benign Hyperkeratotic Lesion(s) 76311 ( >4 Lesions) - The Benign hyperkeratotic lesions, as described above were pared, and/or cut utilizing a sterile #15 blade, tissue nippers, and/or dremel, Q8 Progress Notes * Alexander GARCÍAOB:[birth year] (72 yo F)Acc No.[id number]:2023 Progress Note Patient:?JoseEdwardo Provider:?Alberto Guo DPM :1950???Age:72 Y???Sex:Female D ate:2023 Address:[address], [id number] Pcp:Mery Franco MD Subjective: * Chief Complaints: [...] for Sister. ?Marital status: . 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 * Medications:?TakingAspirin 8 1 MG Tablet 1 [...] to treatment,Improvement? Plan: * Treatment: 2.?Tinea unguium?Procedure: 82210-QEINXRS NAIL, 6 OR MORE * Procedures:?Debride Nail 6-10:?Nail debridement?Nail debridement performed extensively to reduce/remove overall nail length, girth, thickness, subungual debris, and necrotic tissue, by manual and electrical means through the use of a nail nipper and/or dremel, to more viable healthy nail plate or bed tissue 1-5. Silver nitrate used for any petechial bleeding as necessary. Patient chooses, no pharmaceutical tx (23439).?Keratoma Treatment:?Parring or Cutting of Benign Hyperkeratotic Lesion(s)?02394 ( >4 Lesions) - The Benign hyperkeratotic lesions, as described above were pared, and/or cut utilizing a sterile #15 blade, tissue nippers, and/or dremel, Q8.? * Procedure Codes:?96218 DEBRI DE NAIL, 6 OR MORE, Modifiers: XS 05803 TRIM SKIN LESIONS, OVER 4, Modifiers: XS [...] DPM Date:?2023 Generated for Fadi menjivar/Gricelda/Kye on:?05/26/2024 09:09 AM EST History and Physical Notes * [...]
--- OUTSIDE RECORDS SUMMARY | 2024-05-26 09:10 | XMS_ITS ---
Author Organization [facility] Address [address] [place] [address] Care Team Providers Care Farm Service Consultant Name Role Phone Mery Franco MD Primary Care Provider Unavaila Alberto Hays Unavailable [phone] Allergies Allergen (clinical drug ingredient) Drug/Non Drug [...] day(s) Not-Taking MetroCream 0.75 % 1 application Candy Packer ally Twice a day Not-Taking Aspirin 81 [...] Ordered Date Performed Result Body Sit e 60324-BMTBXJG NAIL, 6 OR MORE 02/01/2024 N/A 43955-ILSF SKIN LESIONS, OVER 4 02/01/2024 N/A Encounters Encounter Location Date Provider Diagnosis [facility] [address] [address] 02/01/2024 Alberto Guo Type 2 diabetes mellitus [...] INSTRUCTIONS.pdf) Pending Test Test Name Order Date 97451-HLHQATD NAIL, 6 OR MORE 02/01/2024 03694-HMIL SKIN LESIONS, OVER 4 02/01/20 24 Next Appt Details Follow Up: prn, Reason: Provider Name:Alberto Guo , 06/03/2024 08:45:00 AM, [address] [place] [address], [phone], Procedure Notes * Category Sub-Category Detail Notes Debride Nail 6-10 Nail debridement Performance o f this nail treatment by a nonprofessional would put this patients foot and overall health at risk. Therefore, nail debridement was performed extensively to reduce/remove overall nail length, girth, thickness, subungual debris, and necrotic tissue, by manual and/or electrical means through the use of a nail nipper and/or dremel-type grinder operator external tool, to a more viable healthy nail plate or bed tissue 6-10. Silver nitrate used for any petechial bleeding as necessary. Definitive antifungal treatment options have been reviewed and discussed with the patient. The patient chooses, no pharmaceutical tx - 93228 Keratoma Treatment Parring or Cutting o f Benign Hyperkeratotic Lesion(s) (-57) More than 4 Lesions - The Benign hyperkeratotic lesions, as described above were pared, and/or cut utilizing a sterile 15 blade, tissue nippers, and/or dremel - 34308 , Q8 Progress Notes * Alexander GARCÍAOB:[birth year] (73 yo F)Acc No.[id number]:02/01/2024 Progress Note Patient:?Edwardo GARCÍA Provider:?Alberto Guo DPM :1950???Age:73 Y???Sex:Female D ate:02/01/2024 Address:[address] [place] [id number] Pcp:Mery Franco MD Subjective: * Chief Complaints: [...] for Sister. ?Marital status: . 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 * Medications:?TakingAspirin 8 1 MG Tablet 1 [...] mellitus with diabetic peripheral angiopathy without gangrene?Procedure: 11445-DXSK SKIN LESIONS, OVER 4 3.?Tinea unguium?Procedure: 93931-SFLPALN NAIL, 6 OR MORE * Procedures:?Debride Nail 6-10:?Nail debridement?Performance of this nail treatment by a nonprofessional would put this patients foot and overall health at risk. Therefore, nail debridement was performed extensively to reduce/remove overall nail length, girth, thickness, subungual debris, and necrotic tissue, by manual and/or electrical means through the use of a nail nipper and/or dremel-type grinder operator external tool, to a more viable healthy nail plate or bed tissue 6-10. Silver nitrate used for any petechial bleeding as necessary. Definitive antifungal treatment options have been reviewed and discussed with the patient. The patient chooses, no pharmaceutical tx - 65779.?Keratoma Treatment:?Parring or Cutting of Benign Hyperkeratotic Lesion(s)?(-57) More than 4 Lesions - The Benign hyperkeratotic lesions, as described above were pared, and/or cut utilizing a sterile 15 blade, tissue nippers, and/or dremel - 53818 , Q8.? * Procedure Codes:?56855 DEBRI DE NAIL, 6 OR MORE, Modifiers: XS 90338 TRIM SKIN LESIONS, OVER 4, Modifiers: XS [...] Provider:?Alberto Guo DPM Date:?2023 Generated for Fadi menjivar/Gricelda/Carrieitting on:?05/26/2024 09:09 AM EST History and Physical [...]
--- OUTSIDE RECORDS SUMMARY | 2024-05-26 09:10 | XMS_ITS ---
Author Organization [facility] Address [address] [place] [address] Care Team Providers Care Paperhanger Pipe Name Role Phone Mery Franco MD Primary Care Provider Adolfo Broussard Unavailable [phone] REASON FOR VISIT H & P Encounters Encounter Location Date Provider Diagnosis [facility] [address] [place] [address] 05/06/2024 Adolfo Dawn PLAN OF TREATMENT Next Appt Details Provider Name:Adolfo Dawn , 09/04/2024 09:40:00 AM, [address], [address], [place], [address],
[2024-05-26 10:03] LABS: MANUAL DIFF FLAG NO
[2024-05-26 10:08] LABS: Basophils Percent Auto 0.4 % (0-2); Eosinophils Absolute Auto 0.1 X10*3/uL (0.0-0.4); Eosinophils Percent Auto 2.1 % (0-4); Hematocrit 37.7 % (37.0-47.0); Hemoglobin 12.1 g/dl (12.0-16.0); Imm Gran Abs Auto 0.01 X10*3/uL (0.00-0.03); Imm Gran Pct Auto 0.2 % (0.0-0.4); Lymphocytes Absolute Auto 1.4 X10*3/uL (1.2-4.9); Lymphocytes Percent Auto 28.4 % (20-40); Mean Corpuscular HGB Conc 32.1 g/dl (31.0-35.0); Mean Corpuscular Hemoglobin 27.4 pg (27.0-33.0); Mean Corpuscular Volume 85.5 fL (80.0-98.0); Mean Platelet Volume 10.7 fL (9.4-12.3); Monocytes Absolute Auto 0.2 X10*3/uL (0.1-1.2); Monocytes Percent Auto 4.9 % (2-11); Neutrophils Absolute Auto 3.1 x10*3/uL (2.0-8.3); Platelet Count 176 X10*3/uL (160-400); Red Blood Count 4.41 X10*6/uL (4.20-5.50); Red Cell Distribution Width 13.3 % (11.0-16.0); White Blood Count 4.9 X10*3/uL (4.8-10.8)
[2024-05-26 10:14] LABS: Estimated Average Glucose 186 mg/dL; Hemoglobin A1C 205.7764 umol/L; Hemoglobin A1c % 8.1 % (<6.0); Total Hemoglobin (HGBA1C) 3181.6674 umol/L
[2024-05-26 10:27] LABS: Alanine Aminotransferase 15 U/L (0-31); Alkaline Phosphatase 64 U/L (39-117); Anion Gap 12 (12-20); Aspartate Amino Transferase 19 U/L (5-31); Bilirubin Total 0.6 mg/dL (0.0-1.0); Blood Urea Nitrogen 13 mg/dL (9-16); Calcium 9.2 mg/dL (8.4-10.2); Carbon Dioxide 24 mmol/L (22-29); Chloride 108 mmol/L (96-108); Cholesterol 185 mg/dL (<200); Estimated Glomerular Filt Rate > 60; Glucose Fasting 133 mg/dL (60-99); HDL Cholesterol 56 mg/dL (>40); Iron 79 mcg/dL (30-160); LDL Cholesterol Calculated 104 mg/dL (<100); Percent Iron Saturation 24 % (15-50); Potassium 4.2 mmol/L (3.3-5.1); Sodium 140 mmol/L (135-145); Total Iron Binding Capacity 328 mcg/dL (228-428); Total Protein 7.2 g/dL (6.5-8.0); Triglycerides 127 mg/dL (<150); Unsaturated Iron Binding 249 ug/dL
[2024-05-26 10:35] LABS: Creatinine Urine 19.06 mg/dL; Microalbumin Urine < 5.0 mg/L
== END 2024-05-26 08:46 | disposition home or self-care (01) ==
LOC: HO.HMGCLDS 08:45
PROVIDERS: PCP Internal Medicine; Visit Provider Internal Medicine
DX: Z00.00 Encounter for general adult medical examination without abnormal findings (principal); E11.9 Type 2 diabetes mellitus without complications; E78.5 Hyperlipidemia, unspecified; E11.319 Type 2 diabetes mellitus with unspecified diabetic retinopathy without macular edema; D64.9 Anemia, unspecified
CPT/HCPCS: 36415; 80053; 80061; 82043; 82570; 83036; 83540; 85025

== ENCOUNTER 2024-05-28 09:22 | Outpatient (AMB) | payer MEDICARE, SELFPAY ==
[2024-05-28 09:32] VITALS: BP 126/76; PULSE 85; RESP 18; TEMP 36.7; O2SAT 98; BMI 26.9
--- NOTE | 2024-05-28 09:32 | A.OFFPC_ITS ---
Vital Signs 05/28/24 09:32 Height 5 ft Weight 138 lb BMI 26.9 BP 126/76 Blood Pressure Location Rt brachial Position Sitting Respiration 18 Pulse 85 Pulse Source Pulse Oximeter Temp 98.0 F Temp Source Oral Pulse Oximetry (%) 98 Oxygen Delivery Method Room Air Intake Visit Reasons: Follow up Intake Note: Pt is here today for a follow up visit. Pt states that her R ear feels swollen, also has hot sensation in her L breast. Allergies losartan Allergy (Unknown, Verified 05/28/24 09:40) cough, URI, cough atorvastatin Adverse Reaction (Intermediate, Verified 05/28/24 09:40) Joint Pain simvastatin Adverse Reaction (Intermediate, Verified 05/28/24 09:40) Muscle cramps Medication List - Last Reconciled 05/28/24 by Mery Franco MD albuterol sulfate 90 mcg/actuation 2 puffs inhalation Q6H PRN lancets As directed metformin ER 1,000 mg (2 x 500 mg) PO BID metronidazole 0.75% (MetroCream) 1 appl topical BEDTIME OneTouch Verio test strips (blood sugar diagnostic) test blood sugar once a day NS Tobacco use date assessed: 05/28/24 Fall risk assessment: 1 Fall in past year Last assessed Fall Risk: 05/28/24 Dental Screening Dental Screen Date: 12/28/23 HPI Follow up HPI Details Pt presents for f/u DM 2. She reports being more compliant with ADA diet increasing physical activity for the last month. She reports dyspnea on exertion but denies exertional induced chest pain palpitations PND or orthopnea. Patient had EKG before colonoscopy which was reported abnormal. Patient reports fasting blood glucose in range between 120-140. She has been taking metformin regularly. [facility] Medical History (Updated 05/28/24 @ 10:08 by Mery Franco MD) Annual physical exam Colon cancer screening Hearing difficulty Hyperlipidemia Lumbar degenerative disc disease Chronic asthma Diabetic eye exam History of mammogram Diabetes Surgical History H/O colonoscopy No pertinent past surgical history Family History Father Lung cancer Lymphoma Esophageal cancer Smoker Brother Cancer of prostate Sister Breast cancer Social History Housing: House Alcohol intake: current Alcohol intake frequency: holidays/special occasions only Patient Tobacco Use Status: Never used Tobacco e-Cigarette/Vaping Use: Never Used Second Hand Smoke Exposure: Yes service: No Current occupational status: retired Cognitive needs: No Hearing needs: No Vision needs: No Questionnaire PHQ-9 Over the last 2 weeks, how often have you been bothered by any of the following problems? 1. Little interest or pleasure in doing things: not at all 2. Feeling down, depressed, or hopeless: not at all 3. Trouble falling or staying asleep, or sleeping too much: not at all 4. Feeling tired or having little energy: not at all 5. Poor appetite or overeating: not at all 6. Feeling bad about yourself - or that you are a failure or have let yourself or your family down: not at all 7. Trouble concentrating on things, such as reading the newspaper or watching television: not at all 8. Moving or speaking so slowly that other people could have noticed. Or the opposite - being so fidgety or restless that you have been moving around a lot more than usual: not at all 9. Thoughts that you would be better off or of hurting yourself in some way: not at all Total score: 0 Depression Screening Interpretation: Negative Depression Screening Done: Yes 58462 - PHQ-9 Billing: Yes Source: Developed by Drs. Adolfo Hilliard, Izzy Monet, Giuseppe Arteaga and colleagues, with an educational regla from [employer]. Thrive Questionnaire Date Thrive assessed: 05/28/24 I am a: Patient What is your living situation today?: I choose not to answer this question Within the past 12 months, did the food you bought not last and you didn't have the money to get more?: I choose not to answer this question Do you have trouble paying for medicines?: I choose not to answer this question Do you have trouble getting transportation to medical appointments?: I choose not to answer this question Do you have trouble paying your heating and electricity bill?: I choose not to answer this question Do you have trouble taking care of your child, family member or friend?: I choose not to answer this question Do you have trouble with day-to-day activities such as bathing, preparing meals, shopping, managing finances, etc.?: I choose not to answer this question Are you currently unemployed and looking for a job?: I choose not to answer this question Are you interested in more education?: I choose not to answer this question THRIVE Score: 0 BENJY-7 AMB Questionnaire BENJY-7 Date BENJY - 7 assessed: 05/28/24 Feeling nervous, anxious, or on edge: 0 = Not at all Not being able to stop or control worryin = Not at all Worrying too much about different things: 0 = Not at all Trouble relaxin = Not at all Being so restless that it is hard to sit still: 0 = Not at all Becoming easily annoyed or irritable: 0 = Not at all Feeling afraid as if something awful might happen: 0 = Not at all Total BENJY-7 score (0-4 normal; 5-9 mild; 10-14 moderate; 15-21 severe): 0 Source: Developed by Drs. Adolfo Hilliard, Izzy Monet, Giuseppe Arteaga and colleagues, with an educational regla from [employer]. BENJY-7 Assessment Billing BENJY-7 Assessment Tool: BENJY-7 Assessment 86391 Review of Systems Const All systems reviewed & are unremarkable except as noted in HPI and below ENT Reports no additional complaints Card Reports no additional complaints Resp Reports no additional complaints GI Reports no additional complaints Reports no additional complaints Physical exam (Primary Care) Vital Signs: Last Vital Signs Temp 98.0 F 05/28/24 09:32 Pulse 85 05/28/24 09:32 Resp 18 05/28/24 09:32 BP 126/76 05/28/24 09:32 Pulse Ox 98 05/28/24 09:32 Oxygen Delivery Method Room Air 05/28/24 09:32 BMI result Body Mass Index 26.9 Tobacco/Smoking Status: Tobacco use Status Tobacco use date assessed 05/28/24 05/28/24 09:42 Patient Tobacco Use Status Never used Tobacco 05/28/24 09:33 e-Cigarette/Vaping Use Never Used 05/28/24 09:33 PHQ-9: PHQ-9 Score PHQ-9: Total score 0 05/28/24 09:57 Depression Screening Interpretation: Negative Thrive Assessment: Date of Thrive Assessment Date Thrive assessed 05/28/24 05/28/24 09:46 Const General: no acute distress HENMT Head: Yes normal to inspection Throat: Yes posterior oropharynx normal Neck Neck: Yes supple Resp Effort & Inspection: normal respiratory effort Auscultation: clear to auscultation bilaterally Cardio Rhythm: regular rhythm Heart sounds: S1 normal heart sound present and S2 normal heart sound present GI Inspection: Yes normal to inspection Palpation (GI): Soft to palpation Percussion: Yes normal to percussion Coding Level of Care Code Est Pt Level 4 (98422) Diagnoses Diabetes E11.9 Hyperlipidemia E78.5 BAIRES (dyspnea on exertion) R06.09 Additional Codes BENJY-7 Assessment Billing - BENJY-7 Assessment Tool: BENJY-7 Assessment 63978 ([id number]) PHQ-9 - 76171 - PHQ-9 Billing: Yes ([id number]) Assessment & Plan Assessment & Plan (1) Diabetes: Code(s): E11.9 - Type 2 diabetes mellitus without complications Category: Medical Plan: A1c is 8.1, ADA diet increase exercise weight loss discussed with the patient, adding medications discussed with the patient but she declined. She will continue metformin and follow-up in 3 months with a fasting labs before (2) Hyperlipidemia: Comment: pt intolerant to statin, diet controlled Code(s): E78.5 - Hyperlipidemia, unspecified Category: Medical Plan: Continue low-cholesterol diet (3) BAIRES (dyspnea on exertion): Code(s): R06.09 - Other forms of dyspnea Category: Medical Plan: Obtain echocardiogram to evaluate for segmental wall motion abnormalities and ejection fraction Orders: Orders Hemoglobin A1c 3 Months E11.9 - Type 2 diabetes mellitus without complications Comprehensive [place]. Panel Fast 3 Months E11.9 - Type 2 diabetes mellitus without complications CA echo transthoracic complete Today E11.9 - Type 2 diabetes mellitus without complications, R06.09 - Other forms of dyspnea TSH reflex Free T4 3 Months E11.9 - Type 2 diabetes mellitus without complications IRON PROFILE 3 Months E11.9 - Type 2 diabetes mellitus without complications
--- OUTSIDE RECORDS SUMMARY | 2024-05-28 10:33 | XMS_ITS ---
Author Organization [facility] Address [address] [place] [address] Care Team Providers Care Event Operations Manager Name Role Phone Mery Franco MD Primary Care Provider Adolfo Broussard Unavailable [phone] REASON FOR VISIT iron def anemia, history of polyps Encounters Encounter Location Date Provider Diagnosis [facility] Out[place] [address], [place] [phone] 05/07/2024 Adolfo Dawn PLAN OF TREATMENT Next Appt Details Provider Name:Adolfo Dawn , 09/04/2024 09:40:00 AM, [address], [address], [place], [address],
--- OUTSIDE RECORDS SUMMARY | 2024-05-28 10:34 | XMS_ITS ---
Author Organization [facility] Address [address] [facility] [place] [address] Care Team Providers Care Cold Roller Name Role Phone Mery Franco MD Primary Care Provider Unavaila Alberto Hays Unavailable [phone] Allergies Allergen (clinical drug ingredient) Drug/Non Drug [...] day Not-Taking MetroCream 0.75 % 1 application Gun Striper ally Twice a day Not-Taking Ketoconazole 200 [...] Ordered Date Performed Result Body Sit e 01638-RZQGCGS NAIL, 6 OR MORE 2023 N/A 78639-NZHB SKIN LESIONS, OVER 4 2023 N/A Encounters Encounter Location Date Provider Diagnosis [facility] [address] [place] [address] 2023 Alberto Guo Type 2 diabetes mellitus [...] Treatment Pending Test Test Name Order Date 25627-UEYNMBP NAIL, 6 OR MORE 2023 00230-ZFQN SKIN LESIONS, OVER 4 07/27/19 24 Next Appt Details Follow Up: prn, Reason: Provider Name:Alberto Guo , 06/03/2024 08:45:00 AM, [address] [place] [address], [phone], Procedure Notes * Category Sub-Category Detail Notes [...] as necessary. Patient chooses, no pharmaceutical tx (63631) Keratoma Treatment Parring or Cutting o f Benign Hyperkeratotic Lesion(s) 97404 ( >4 Lesions) - The Benign hyperkeratotic lesions, as described above were pared, and/or cut utilizing a sterile #15 blade, tissue nippers, and/or dremel, Q8 Progress Notes * Alexander GARCÍAOB:[birth year] (72 yo F)Acc No.[id number]:2023 Progress Note Patient:?JoseEdwardo Provider:?Alberto Guo DPM :1950???Age:72 Y???Sex:Female D ate:2023 Address:[address] [place], [id number] Pcp:Mery Franco MD Subjective: * Chief Complaints: [...] for Sister. ?Marital status: . 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 * Medications:?TakingAspirin 8 1 MG Tablet 1 [...] to treatment,Improvement? Plan: * Treatment: 2.?Tinea unguium?Procedure: 67634-FIZXEVG NAIL, 6 OR MORE * Procedures:?Debride Nail 6-10:?Nail debridement?Nail debridement performed extensively to reduce/remove overall nail length, girth, thickness, subungual debris, and necrotic tissue, by manual and electrical means through the use of a nail nipper and/or dremel, to more viable healthy nail plate or bed tissue 1-5. Silver nitrate used for any petechial bleeding as necessary. Patient chooses, no pharmaceutical tx (48316).?Keratoma Treatment:?Parring or Cutting of Benign Hyperkeratotic Lesion(s)?32417 ( >4 Lesions) - The Benign hyperkeratotic lesions, as described above were pared, and/or cut utilizing a sterile #15 blade, tissue nippers, and/or dremel, Q8.? * Procedure Codes:?07515 DEBRI DE NAIL, 6 OR MORE, Modifiers: XS 59670 TRIM SKIN LESIONS, OVER 4, Modifiers: XS [...] Guo DPM Date:?2023 Generated for Fadi menjivar/Gricelda/Kye on:?05/28/2024 10:34 AM EST History and Physical Notes * [...]
--- OUTSIDE RECORDS SUMMARY | 2024-05-28 10:34 | XMS_ITS ---
Author Organization [facility] Address [address] [place] [address] Care Team Providers Care Scow Derrick Operator Name Role Phone Mery Franco MD Primary Care Provider Adolfo Broussard Unavailable [phone] REASON FOR VISIT H & P Encounters Encounter Location Date Provider Diagnosis [facility] [address] [place] [address] 05/06/2024 Adolfo Dawn PLAN OF TREATMENT Next Appt Details Provider Name:Adolfo Dawn , 09/04/2024 09:40:00 AM, [address], [address], [place], [address],
--- OUTSIDE RECORDS SUMMARY | 2024-05-28 10:34 | XMS_ITS ---
Author Organization [facility] Address [address] [facility] [place] [address] Care Team Providers Care Councilor Name Role Phone Mery Franco MD Primary Care Provider Unavaila Alberto Hays Unavailable [phone] Allergies Allergen (clinical drug ingredient) Drug/Non Drug [...] day(s) Not-Taking MetroCream 0.75 % 1 application Repair Department Supervisor ally Twice a day Not-Taking Aspirin [...] Ordered Date Performed Result Body Sit e 99583-USXTEDS NAIL, 6 OR MORE 02/01/2024 N/A 68989-NGAW SKIN LESIONS, OVER 4 02/01/2024 N/A Encounters Encounter Location Date Provider Diagnosis [facility] [address] [address] 02/01/2024 Alberto Guo Type 2 diabetes mellitus [...] INSTRUCTIONS.pdf) Pending Test Test Name Order Date 07488-TMFJNYG NAIL, 6 OR MORE 02/01/2024 77531-SYXV SKIN LESIONS, OVER 4 02/01/20 24 Next Appt Details Follow Up: prn, Reason: Provider Name:Alberto Guo , 06/03/2024 08:45:00 AM, [address] [place] [address], [phone], Procedure Notes * Category Sub-Category Detail Notes Debride Nail 6-10 Nail debridement Performance o f this nail treatment by a nonprofessional would put this patients foot and overall health at risk. Therefore, nail debridement was performed extensively to reduce/remove overall nail length, girth, thickness, subungual debris, and necrotic tissue, by manual and/or electrical means through the use of a nail nipper and/or dremel-type tankage grinder, to a more viable healthy nail plate or bed tissue 6-10. Silver nitrate used for any petechial bleeding as necessary. Definitive antifungal treatment options have been reviewed and discussed with the patient. The patient chooses, no pharmaceutical tx - 64775 Keratoma Treatment Parring or Cutting o f Benign Hyperkeratotic Lesion(s) (-57) More than 4 Lesions - The Benign hyperkeratotic lesions, as described above were pared, and/or cut utilizing a sterile 15 blade, tissue nippers, and/or dremel - 29001 , Q8 Progress Notes * Alexander GARCÍAOB:[birth year] (73 yo F)Acc No.[id number]:02/01/2024 Progress Note Patient:?Edwardo GARCÍA Provider:?Alberto Guo DPM :1950???Age:73 Y???Sex:Female D ate:02/01/2024 Address:[address] [place] [id number] Pcp:Mery Franco MD Subjective: * Chief Complaints: [...] for Sister. ?Marital status: . 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 * Medications:?TakingAspirin 8 1 MG Tablet 1 [...] mellitus with diabetic peripheral angiopathy without gangrene?Procedure: 98702-YDLQ SKIN LESIONS, OVER 4 3.?Tinea unguium?Procedure: 35270-NIYLPGZ NAIL, 6 OR MORE * Procedures:?Debride Nail 6-10:?Nail debridement?Performance of this nail treatment by a nonprofessional would put this patients foot and overall health at risk. Therefore, nail debridement was performed extensively to reduce/remove overall nail length, girth, thickness, subungual debris, and necrotic tissue, by manual and/or electrical means through the use of a nail nipper and/or dremel-type tankage grinder, to a more viable healthy nail plate or bed tissue 6-10. Silver nitrate used for any petechial bleeding as necessary. Definitive antifungal treatment options have been reviewed and discussed with the patient. The patient chooses, no pharmaceutical tx - 55347.?Keratoma Treatment:?Parring or Cutting of Benign Hyperkeratotic Lesion(s)?(-57) More than 4 Lesions - The Benign hyperkeratotic lesions, as described above were pared, and/or cut utilizing a sterile 15 blade, tissue nippers, and/or dremel - 78915 , Q8.? * Procedure Codes:?72146 DEBRI DE NAIL, 6 OR MORE, Modifiers: XS 43563 TRIM SKIN LESIONS, OVER 4, Modifiers: XS [...] Guo DPM Date:?2023 Generated for Fadi menjivar/Gricelda/Buzzsmitting on:?05/28/2024 10:34 AM EST History and Physical [...]
--- OUTSIDE RECORDS SUMMARY | 2024-05-28 10:34 | XMS_ITS ---
Author Organization [facility] Address [address] [place] [address] Care Team Providers Care Tele Grout Sewer Line Repairer Name Role Phone Mery Franco MD Primary Care Provider Adolfo Broussard [phone] REASON FOR VISIT Is f/u required Encounters Encounter Location Date Provider Diagnosis [facility] [address] [place] [address] 05/08/2024 Adolfo Dawn Iron deficiency anemia D50.9 ASSESSMENTS Encounter Date Diagnosis Assessment Notes Treatment Notes Treatment Clinical Notes 05/08/2024 Iron deficiency anemia (ICD-10 - D50.9) PLAN OF TREATMENT Pending Test Test Name Order Date IRON + IBC (FE) 05/08/2024 CBC w DIFF 05/08/2024 Ferritin 05/08/2024 Next Appt Details Provider Name:Adolfo Dawn , 09/04/2024 09:40:00 AM, [address], [address], [place], [address],
--- OUTSIDE RECORDS SUMMARY | 2024-05-28 10:34 | XMS_ITS ---
Author Organization [facility] Address [address] [place] [address] Care Team Providers Care Gravel Machine Operator Name Role Phone Mery Franco MD Primary Care Provider Unavaila Alberto Hays Unavailable [phone] Nicole Encounters Encounter Location Date Provider Diagnosis [facility] [address] [place] [address] 01/25/2024 Alberto Guo Plan Of Treatment Next Appt Details Provider Name:Alberto Guo , 06/03/2024 08:45:00 AM, [address] [place], [address], Progress Notes * Alexander GARCÍAOB:[birth year] (73 yo F)Acc No.[id number]:01/25/2024 Progress Note Patient:?Jose Carlos GARCÍAan Provider:?Alberto Guo DPM :1950???Age:73 Y???Sex:Female D ate:01/25/2024 Address: [address] [id number] Pcp:Mery Franco MD Subjective: * Chief Complaints: [...]
--- OUTSIDE RECORDS SUMMARY | 2024-05-28 10:34 | XMS_ITS | Patient Health Record ---
Author Organization [email or web address] [facility] Address [address] [place] [address] Care Team Providers Care Machinist Linotype Name Role Phone Amy Herrera Unavailable [phone] Reason For Referral No Information Medications Medication SIG (Take, Route, Frequency, Duration) Notes Start Date End Date Status Ferrous Sulfate 325mg 1 ORAL three times daily for -3 [facility] 06/28/2012 Active Januvia 1 ORAL daily for -3 [facility] 12/30/2013 Active valACYclovir HCl 500MG 2 ORAL three time s each day for 7 [facility] 01/20/2014 Active Aspirin EC 81MG 1 ORAL daily for -3 [facility] 06/29/2011 Active Cozaar 50MG 1 ORAL daily for -3 [facility] 11/13/2011 Active Premarin 0.625MG/GM 1g Vaginal every oth er day for -3 [facility] 01/20/2014 Active Accu-Chek Compact Test Drum ORAL for -3 [facility] 07/25/2011 Active SMZ-TMP DS 800-160MG 1 ORAL twice each d ay for 7 [facility] 01/27/2014 Active Multivitamins 1 ORAL daily for -3 [facility] 12/30/2013 Active metFORMIN HCl 500MG 1 ORAL twice daily f or -3 [facility] 06/28/2012 Active Immunizations Vaccine Route Administration Date Status Comme nts Influenza, live, intranasal Intramuscular 04/19/2011 Pendi ng Influenza, live, intranasal Intramuscular 06/29/2011 Pendi ng Problems Problem Type SNOMED Code ICD Code Onset Dates Problem Status W/U Status Risk Notes Problem Candidal vulvovaginitis (49251043) Candidiasis of vulva and vagina (112.1) Active confirmed Other Problem Leiomyoma of uterus (59869006) Leiomyoma of uterus, unspecified (218.9) Active confirmed Other Problem Type II diabetes mellitus without complication (148628586) Diabetes mellitus without mention of complication, type II or unspecified type, not stated as uncontrolled (250.00) Active confirmed Major Problem Type II diabetes mellitus uncontrolled (577867510) Diabetes mellitus without mention of complication, type II or unspecified type, uncontrolled (250.02) Active confirmed Major Problem Hyperlipidemia (57472390) Other and unspecified hyperlipidemia (272.4) Active confirmed Major Problem Anemia (709535966) Unspecified anemia (285.9) Active confirmed Major Problem Essential hypertension (70650498) Unspecified essential hypertension (401.9) Active confirmed Major Problem Abnormal vaginal bleeding (462849542) Other disorder of menstruation and other abnormal bleeding from female genital tract (626.8) Active confirmed Major Problem Postmenopausal bleeding (99821629) Postmenopausal bleeding (627.1) Active confirmed Diag Problem Menopausal symptom (82143129) Symptomatic menopausal or female climacteric states (627.2) Active confirmed Major Problem Generalized osteoarthritis (disorder) (263465412) Generalized osteoarthrosis, unspecified site (715.00) Active confirmed Major Problem Joint pain (finding) (76251530) Pain in joint, site unspecified (719.40) Active confirmed Diag Problem General examination of patient (001527569) Routine general medical examination at health care facility (V70.0) Active confirmed Diag Problem Gynecological examination normal (391313779823848) Routine gynecological examination (V72.31) Active confirmed Major Problem Screening for malignant neoplasm of colon (689675365) Special screening for malignant neoplasms, colon (V76.51) Active confirmed Major Plan Of Treatment No Information Insurance Providers Payer Name Payer Address Payer Phone Subscriber Number Group Number Insured Name Patient Relationship to Insured Coverage Start Date Coverage End Date [facility] [address] [facility] [id number] ARY HERNANDEZ Self - patient is the insured
--- OUTSIDE RECORDS SUMMARY | 2024-05-28 10:34 | XMS_ITS | Patient Health Record ---
Author Organization [facility] Address [address] [place] [address] Care Team Providers Care Printing Manager Name Role Phone Mery Franco MD Primary Care Provider Adolfo Broussard Unavailable [phone] ALLERGIES Allergen (clinical drug ingredient) Drug/Non Drug Allergy documented on EMR Reaction Allergy Type Onset Date Status diphenhydramine Antihistamine Unknown Drug Allergy Active RESULTS Component Value Reference Range Notes Ferritin Reviewed date:04/24/2024 09:37:17 PM Interpretation: Performing Lab:[facility], [address] [place] [phone] Notes/Report: Ferritin 15 10-250 ng/mL Complete Blood Count Auto Di ff Reviewed date:04/24/2024 09:38:06 PM Interpretation: Performing Lab:[facility], [address] [place] [phone] Notes/Report: White Blood Count 5.9 4.8-10.8 X10*3/uL [...] PROFILE Reviewed date:04/24/2024 09:37:46 PM Interpretation: Performing Lab:[facility], [address] [place] [phone] Notes/Report: Iron 57 30-160 mcg/dL Total Iron Binding Capacity 315 228-428 mcg/d L Percent Iron Saturation 18 15-50 % Unsaturated Iron Binding 258 Pathology (Not yet reviewed by provider) Interpretation: Performing Lab:[address] [address] Notes/Report: Glucose, Whole Blood Reviewed date:05/07/2024 12:45:53 PM Interpretation: Performing Lab:[facility], [address] [place] [phone] Notes/Report: Glucose, Whole Blood 158 60-115 mg/dL METER # : [id number] REASON FOR REFERRAL No Information MEDICATIONS Medication [...] malignant neoplasm of colon (Z12.11) Active confirmed 438163423 Problem History of adenomatous polyp of colon (Z86.010) Active confirmed 285333397 Problem Iron deficiency anemia (D50.9) Active confirmed Iron deficiency anemia (07087719) Problem Preprocedural examination (Z01.818) Active confirmed 565668580 Problem Aspirin long-term use (Z79.82) Active confirmed 525665987 VITAL SIGNS Temperature 97.5 degrees Fahrenheit 04/23/2024 Blood pressure diastolic 00 mm Hg 04/23/2024 Height 59.25 in 04/23/2024 Blood pressure systolic 000 mm Hg 04/23/2024 Weight 140 lbs 04/23/2024 BMI 28.04 kg/m2 04/23/2024 Encounters Encounter Location Date Provider Diagnosis [facility] [address] [place] [id number] 04/30/2024 Adolfo Dawn [facility] Outpatient [address] [place] [id number] 05/07/2024 Adolfo Dawn [facility] [address] [place] [address] 04/23/2024 Adolfo Dawn Iron deficiency anemia D50.9 ; History of adenomatous polyp of colon Z86.010 and Aspirin long-term use Z79.82 [facility] [address] [place] [address] 04/28/2024 Adolfo Dawn [facility] [address] [place] [address] 05/06/2024 Adolfo Dawn [facility] [address] [place] [address] 05/08/2024 Adolfo Dawn Iron deficiency anemia D50.9 [...] Name:Adolfo Dawn , 09/04/2024 09:40:00 AM, [address], [address], [place], [address], Insurance Providers Payer Name Payer Address Payer Phone Subscriber Number Group Number Insured Name Patient Relationship to Insured Coverage Start Date Coverage End Date [facility] [address] [place] [address] [id number] ARY HERNANDEZ Self - patient is the insured MEDICAL (GENERAL) HISTORY Medical History History ICD Code History of ulcers in her 20's Colonoscopy in 2001--- tubul ar adenoma and hyperplastic polyps removed in 2001 HTN NIDDM Herniated discs--lower back Denies SC,CVA,renal disease Colonoscopy 01/2012--hyperpl astic polyp, diverticulosis, internal hemorrhoids Asthma Colonoscopy 2016 with small tubular shant omas removed Iron def anemia noted in 2023 Surgical History Surgery Date(Month/Year) Cholecystectomy
--- OUTSIDE RECORDS SUMMARY | 2024-05-28 10:34 | XMS_ITS | Patient Health Record ---
Author Organization [facility] Address [address] [place] [address] Care Team Providers Care Mycology Teacher Name Role Phone Mery Franco MD Primary Care Provider Unavaila ble Alberto Guo Unavailable [phone] Allergies Allergen (clinical drug ingredient) Drug/Non Drug [...] Referring Provider Last Name Salvador Referred Organization [facility] Referred Provider Alberto Guo Referred Address [address],[place], [place],[address],[place] Referred Provider Specialty Podiatry Referral Priority Routine [...] PRN Active MetroCream 0.75 % 1 application Care Team Coordinator Scheduler ally Twice a day Not-Taking Clindamycin Phosphate [...] Problem Acquired hammer toe of right foot (9794418185905 105) Other hammer toe(s) (acquired), right foot (M20.41) Active confirmed Response to treatment,I mprovement Problem Type 2 diabetes mellitus with peripheral angiopathy (312259126) Type 2 diabetes mellitus with diabetic peripheral angiopathy without gangrene (E11.51) Active confirmed Problem Acquired hammer toe of left foot (3413450200766 103) Other hammer toe(s) (acquired), left foot (M20.42) Active confirmed Response to treatment,I mprovement Vital Signs Blood pressure diastolic 65 mm Hg 02/01/2024 Height 5ft in 02/01/2024 Blood pressure systolic 120 mm Hg 02/01/2024 Weight 138 lbs 02/01/2024 BMI 26.95 kg/m2 02/01/2024 Procedures Procedure Date Ordered Date Performed Result Body Sit e 55900-SZUPIYG NAIL, 6 OR MORE 2023 N/A 32387-XKSK SKIN LESIONS, OVER 4 2023 N/A 36951-QMYGLCB NAIL, 6 OR MORE 02/01/2024 N/A 20689-KHIL SKIN LESIONS, OVER 4 02/01/2024 N/A Encounters Encounter Location Date Provider Diagnosis [facility] [address] 2023 Alberto Guo Type 2 diabetes mellitus with diabetic peripheral angiopathy without gangrene E11.51 ; Tinea unguium B35.1 ; Pain in right toe(s) M79.674 ; Pain in left toe(s) M79.675 ; Other hammer toe(s) (acquired), right foot M20.41 and Other hammer toe(s) (acquired), left foot M20.[address] [facility] [address] 02/01/2024 Alberto Santosunier Type 2 diabetes mellitus [...] Treatment Pending Test Test Name Order Date 31459-UTPCKVO NAIL, 6 OR MORE 06/05/2013 57838-PNSZAZN NAIL, 6 OR MORE 08/28/2013 29197-AZFFVSU NAIL, 6 OR MORE 12/03/2013 57174-PVHJJEM NAIL, 6 OR MORE 03/04/2014 95892-FVYRXGQ NAIL, 6 OR MORE 12/24/2020 88200-UUFIZGS NAIL, 6 OR MORE 07/15/2021 01691-BHDKIAL NAIL, 6 OR MORE 02/21/2022 47572-OHJIPHY NAIL, 6 OR MORE 09/01/2022 92507-QIPPQZU NAIL, 6 OR MORE 01/26/2023 32105-NPXAFSV NAIL, 6 OR MORE 2023 02023-FSWWXFV NAIL, 6 OR MORE 02/01/2024 92966-VYAG SKIN LESIONS, OVER 4 02/01/20 24 21285-AMAA SKIN LESIONS, OVER 4 07/27/19 24 61053-OBWN SKIN LESIONS, OVER 4 01/27/20 23 37878-PRPA SKIN LESIONS, OVER 4 09/02/19 23 76086-WYTM SKIN LESIONS, OVER 4 02/22/20 22 53395-ICUZ SKIN LESIONS, OVER 4 03/19/20 19 Next Appt Details Provider Name:Alberto Guo , 06/03/2024 08:45:00 AM, [address], [place], [address], Insurance Providers Payer Name Payer Address Payer Phone Subscriber Number Group Number Insured Name Patient Relationship to Insured Coverage Start Date Coverage End Date [facility] 65 Medicare Preferred [address] [place] [address] [id number] Edwardo Borjas Self - patient is the insured Medical (General) History Medical History History ICD Code asthma type II diabetes Gall bladder problems-out Hypertension Hyperlipidemia covid-19 Surgical History Surgery Date(Month/Year) gall bladder 1979
== END 2024-05-28 13:10 | disposition home or self-care (01) ==
PROVIDERS: PCP Internal Medicine; Visit Provider Internal Medicine
DX: E11.9 Type 2 diabetes mellitus without complications (principal); E78.5 Hyperlipidemia, unspecified; R06.09 Other forms of dyspnea

== ENCOUNTER → 2024-05-28 09:22 | Outpatient (BNVA) | payer MEDICARE, SELFPAY | PROVIDERS: PCP Internal Medicine; Visit Provider Internal Medicine | DX: E11.9 Type 2 diabetes mellitus without complications (principal); E78.5 Hyperlipidemia, unspecified; R06.09 Other forms of dyspnea | CPT/HCPCS: 96127; 99212 ==

== ENCOUNTER → 2024-06-05 09:58 | Outpatient (REF) | payer MEDICARE, SELFPAY ==
--- NOTE | 2024-06-05 10:03 | CA_ITS ---
Transthoracic Echocardiogram Patient (Last, First, Middle): Edwardo Garcia, Gender: Female Date of : 1950 Age: 73 Procedure Date: 06/05/2024 Procedure Type: Transthoracic Echocardiogram Location: OP Height: 149.86 cm Weight: 62.6 kg BSA: 1.57 m2 Heart Rate: bpm BP: 126 / 76 mmHg Craft Coordinator: TO Referring MD: Mery Franco MD Symptoms: R06.09 - Other forms of dyspnea Study Quality: Fair/contrast ECG Rhythm: Sinus Conclusions: - The left ventricular systolic function is normal. The calculated ejection fraction is 65% by biplane method. - No obvious valvular pathology seen on this study. Findings Procedure Information Contrast agent, definity, is being given per protocol without apparent complications. Left Ventricle Normal left ventricular cavity size. There is normal left ventricular wall thickness. The left ventricular systolic function is normal. The calculated ejection fraction is 65% by biplane method. There is no evidence of regional wall motion abnormalities. Evidence suggests grade I (mild) diastolic dysfunction. Right Ventricle Normal right ventricular cavity size and systolic function. Atria Both atria are normal in size. Aortic Valve There is a normal trileaflet aortic valve. There is no aortic valve stenosis. There is no aortic valve regurgitation. Mitral Valve The mitral valve appears normal. There is no mitral valve regurgitation. There is no mitral valve stenosis. Pulmonic Valve The pulmonic valve is likely normal. Tricuspid Valve There is trace tricuspid valve regurgitation. There is no evidence of pulmonary hypertension. Great Vessels The asc aorta and aortic arch are normal in size. Venous The inferior vena cava is normal in size and collapses greater than 50% with inspiration. Pericardium/Pleural There is a trivial pericardial effusion. Prior Study Comparison No prior study available for comparison. Recommendations, Care & Conclusions No obvious valvular pathology seen on this study. Measurements 2D Linear Measurements IVSd: 0.98 0.6-0.9/0.6-1.0 cm LVIDd: 3.82 3.9-5.3/4.2-5.9 cm LVIDd Index: 2.43 2.4-3.2/2.2-3.1 cm/m2 LVIDs: 2.49 2.0-3.6 cm LVPWd: 0.76 0.7-1.1 cm LA Diam: 2.90 2.7-3.8/3.0-4.0 cm LAIDs Index: 1.85 1.5-2.3 cm/m2 LV Mass: 120.88 67-162/88-224 g LV Mass Index: 76.99 43-95/49-115 g/m2 LVOT Diam: 1.90 3.0+(-)1.3 cm 2D Systolic Function EF 4C: 62.10 >55% EF 2C: 67.30 >55% EF BiP: 65.10 >55% Mitral Valve MV Pk E: 0.58 MV PK A: 0.96 MV Decel Time: 139.00 E/A: 0.60 E'Lateral: 6.42 E'Medial: 5.55 E/E' Med: 10.40 E/E' Lat: 9.00 PHT: 41.00 MVA PHT: 5.37 Decel Lea: 4.16 Aortic Valve AoV Pk Miah: 1.03 AoV Mn Miah: 0.76 AoV VTI: 0.19 AoV Pk Grad: 4.00 Aov Mn Grad: 3.00 SOL Cont.VTI: 2.11 LVOT LVOT Pk Miah: 0.91 LVOT Mn Miah: 0.60 LVOT VTI: 0.14 LVOT Pk Grad: 3.00 LVOT Mn Grad: 2.00 LVOT Diam: 1.90 LVOT Area: 2.84 Diastolic Function MV Pk E: 0.58 MV Pk A: 0.96 E/A: 0.60 E'Medial: 5.55 E/E' Med: 10.40 E' Laterial: 6.42 E/E' Lat: 9.00 Right Ventricle TAPSE (mm): 17.70 TVS' Miah: 13.90 Tricuspid Valve RA Press: 3.00 Great Vessels Aorta Sinus of Valsalva: 2.85 2.0-3.5 cm Ao Asc: 3.40 2.1-3.4 cm Ao Arch: 2.20 Updated in Other Vendor System with Status of Final Saad Deleon MD electronically signed on 06/06/2024 12:08:52 PM with status of Final
--- OUTSIDE RECORDS SUMMARY | 2024-06-05 10:52 | XMS_ITS | Patient Health Record ---
Author Organization [facility] Address [address] [place] [address] Care Team Providers Care Respiratory Therapy Director Name Role Phone Mery Franco MD Primary Care Provider Unavaila Alberto Hays Unavailable [phone] Allergies Allergen (clinical drug ingredient) Drug/Non Drug [...] Shellfish-derived Products swell up Drug Allergy Active Results Component Value Reference Range Notes HEMOGLOBIN A1C (GLYCOHEMOGLO BIN) Reviewed date:06/03/2024 08:44:06 AM Interpretation: Performing Lab: Notes/Report: HEMOGLOBIN A1C % (HH) 7.9 Reason For Referral Diagnosis 1 Type 2 [...] Mery Referring Provider Last Name Salvador Referred [facility] Referred Provider Alberto Guo Referred Address [address],[place],[address] Referred Provider Specialty Podiatry Referral Priority Routine Medications Medication SIG (Take, Route, Frequency, Duration) Notes Start Date End Date Status Losartan Potassium 50 MG 1 tablet Orally Once a day for 30 day(s) Not-Taking metFORMIN HCl 1000 MG 2 tablet with a me al Orally Once a day Active Aspirin 81 MG 1 tablet Orally Once a day for 30 day(s) Active Extra Depth Orthopedic Shoes, (1) Pair With (3) Pair Custom Heat Molded Multidensity Innersoles Dx: NIDDM/PVD(E11.51), Hammertoe Foot Deformity(M20.41,M20.42) , Preulcerative Skin Lesion(s)(L85.1) Wear Daily for 365 days Active ProAir HFA 108 (90 Base) MCG/ACT 2 puffs as needed Inhalation every 6 hrs PRN Active MetroCream 0.75 % 1 application Frame Repairer ally Twice a day Not-Taking Clindamycin Phosphate 1 % 1 application Externally Twice a day Not-Taking Ketoconazole 200 MG 1 tablet Orally Once a day for 10 day(s) Not-Taking Januvia 50 MG 2 tablets Orally Twi ce a day for 30 day(s) Not-Taking Iron 325 (65 Fe) MG 1 tablet Orally Once a day for 30 day(s) Not-Taking Immunizations Vaccine Route Administration Date Status Comme nts COVID-19 Carlos Manuel & Carlos Manuel/Sabi Unknown 07/15/2021 Refused Influenza Unknown 03/19/2019 Refused DOSEN'T GET TH EM. Social History Tobacco Use: Social History Observation Description Date Details (start date - stop date) Never Smoker NA - NA Tobacco use other than smoking: Question Answer Notes Are you an other tobacco user? No Tobacco Control (Standard) Question Answer Notes Tobacco use: Nonsmoker Additional Findings: Tobacco non-user Current no nsmoker AUDIT-C (Standard) Question Answer Notes Did you have a drink containing alcohol in the p ast year? No Points 0 Interpretation Negative Problems Problem Type SNOMED Code ICD Code Onset Dates Problem Status W/U Status Risk Notes Problem Acquired hammer toe of right foot (7644601435276 105) Other hammer toe(s) (acquired), right foot (M20.41) Active confirmed Response to treatment,I mprovement Problem Type 2 diabetes mellitus with peripheral angiopathy (022615723) Type 2 diabetes mellitus with diabetic peripheral angiopathy without gangrene (E11.51) Active confirmed Q7(A), Q8(2B), Q9(1B,2C) Problem Acquired hammer toe of left foot (1152773130204 103) Other hammer toe(s) (acquired), left foot (M20.42) Active confirmed Response to treatment,I mprovement Vital Signs Blood pressure diastolic 80 mm Hg 06/03/2024 Height 5ft in 06/03/2024 Blood pressure systolic 120 mm Hg 06/03/2024 Weight 138 lbs 06/03/2024 BMI 26.95 kg/m2 06/03/2024 Procedures Procedure Date Ordered Date Performed Result Body Sit e 19282-FFNEEHV NAIL, 6 OR MORE 2023 N/A 63471-WIUJ SKIN LESIONS, OVER 4 2023 N/A 83486-LJALLCQ NAIL, 6 OR MORE 02/01/2024 N/A 58643-WGTC SKIN LESIONS, OVER 4 02/01/2024 N/A 42442-EMUXHKK NAIL, 6 OR MORE 06/03/2024 N/A 87251-JZIH SKIN LESIONS, OVER 4 06/03/2024 N/A Encounters Encounter Location Date Provider Diagnosis [address] [address] 2023 Alberto Guo Type 2 diabetes mellitus with diabetic peripheral angiopathy without gangrene E11.51 ; Tinea unguium B35.1 ; Pain in right toe(s) M79.674 ; Pain in left toe(s) M79.675 ; Other hammer toe(s) (acquired), right foot M20.41 and Other hammer toe(s) (acquired), left foot M20.[facility] [address] [facility]/01/[facility] Alberto Guo Type 2 diabetes mellitus with diabetic peripheral angiopathy without gangrene E11.51 ; Tinea unguium B35.1 ; Pain in right toe(s) M79.674 ; Pain in left toe(s) M79.675 ; Other hammer toe(s) (acquired), left foot M20.42 and Other hammer toe(s) (acquired), right foot M20.41 [facility] [place] [address] [place] [address] 06/03/2024 Alberto Guo Type 2 diabetes mellitus with [...] peripheral angiopathy without gangrene (ICD-10 - E11.51) 06/03/2024 Type 2 diabetes mellitus with diabetic peripheral angiopathy without gangrene (ICD-10 - E11.51) Q7(A), Q8(2B), Q9(1B,2C) 06/03/2024 Tinea unguium (ICD-10 - B35.1) 06/03/2024 Pain in right toe(s) (ICD-10 - M79.674) 02/01/2024 Tinea unguium (ICD-10 - B35.1) 2023 Pain in right toe(s) (ICD-10 - M79.674) 2023 Pain in left toe(s) (ICD-10 - M79.675) 02/01/2024 Pain in right toe(s) (ICD-10 - M79.674) 06/03/2024 Pain in left toe(s) (ICD-10 - M79.675) 06/03/2024 Other hammer toe(s) (acquired), right foot (ICD-10 - M20.41) Response to treatment,Impro vement 02/01/2024 Pain in left toe(s) (ICD-10 - M79.675) 2023 Other hammer toe(s) (acquired), right foot (ICD-10 - M20.41) Response to treatment,Impro vement 2023 Other hammer toe(s) (acquired), left foot (ICD-10 - M20.42) Response to treatment,Impro vement 02/01/2024 Other hammer toe(s) (acquired), left foot (ICD-10 - M20.42) 06/03/2024 Other hammer toe(s) (acquired), left foot (ICD-10 - M20.42) Response to treatment,Impro vement 02/01/2024 Other hammer toe(s) (acquired), right foot (ICD-10 - M20.41) Patient Educated with: DIABETIC FOOT CARE INSTRUCTIONS.p df (DIABETIC FOOT CARE INSTRUCTIONS.p df) Plan Of Treatment Pending Test Test Name Order Date 51674-QGOLAGR NAIL, 6 OR MORE 06/05/2013 85129-WVIDHGF NAIL, 6 OR MORE 08/28/2013 27061-YHQNXLR NAIL, 6 OR MORE 12/03/2013 32016-ANSMXSX NAIL, 6 OR MORE 03/04/2014 21774-EAIFJQB NAIL, 6 OR MORE 12/24/2020 08383-TDOJZXP NAIL, 6 OR MORE 07/15/2021 40714-EZAWWSS NAIL, 6 OR MORE 02/21/2022 00218-VWFBAFQ NAIL, 6 OR MORE 09/01/2022 28981-ACETDJK NAIL, 6 OR MORE 01/26/2023 62106-BRXGMEG NAIL, 6 OR MORE 2023 12160-ALDWXNV NAIL, 6 OR MORE 02/01/2024 64470-OCWGQJN NAIL, 6 OR MORE 06/03/2024 17932-MZQY SKIN LESIONS, OVER 4 06/03/19 25 95901-FZRL SKIN LESIONS, OVER 4 02/01/20 24 65287-BCIC SKIN LESIONS, OVER 4 07/27/19 24 10343-CSQX SKIN LESIONS, OVER 4 01/27/20 23 32966-BIZF SKIN LESIONS, OVER 4 09/02/19 23 11776-QJJX SKIN LESIONS, OVER 4 02/22/20 22 79910-DLHG SKIN LESIONS, OVER 4 03/19/20 Next Appt Details Provider Name:Alberto Guo , 10/03/2024 09:15:00 AM, [address] [place], [address], Insurance Providers Payer Name Payer Address Payer Phone Subscriber Number Group Number Insured Name Patient Relationship to Insured Coverage Start Date Coverage End Date [employer] [address] [place] [address] [id number] Edwardo Borjas Self - patient is the insured 4 Medical (General) History Medical History History ICD Code asthma type II diabetes Gall bladder problems-out Hypertension Hyperlipidemia covid-19 Surgical History Surgery Date(Month/Year) gall bladder 1980
--- OUTSIDE RECORDS SUMMARY | 2024-06-05 10:52 | XMS_ITS ---
Author Organization [facility] Address [address] [place] [address] Care Team Providers Care Substation Superintendent Name Role Phone Mery Franco MD Primary Care Provider Adolfo Broussard Unavailable [phone] REASON FOR VISIT iron def anemia, history of polyps Encounters Encounter Location Date Provider Diagnosis [facility] Outpatient [address] [place] [id number] 05/07/2024 Adolfo Dawn PLAN OF TREATMENT Next Appt Details Provider Name:Adolfo Dawn , 09/04/2024 09:40:00 AM, [address], [address], [place], [address],
--- OUTSIDE RECORDS SUMMARY | 2024-06-05 10:52 | XMS_ITS | Patient Health Record ---
Author Organization [facility] Address [address] [place] [address] Care Team Providers Care Cytologist Name Role Phone Amy Herrera Unavailable [phone] Reason For Referral No Information Medications Medication SIG (Take, Route, Frequency, Duration) Notes Start Date End Date Status Ferrous Sulfate 325mg 1 ORAL three times daily for -3 [facility] 06/28/2012 Active Januvia 1 ORAL daily for -3 [facility] 12/30/2013 Active valACYclovir HCl 500MG 2 ORAL three time s each day for 7 [facility] 01/20/2014 Active Aspirin EC 81MG 1 ORAL daily for -3 [facility] 06/29/2011 Active Cozaar 50MG 1 ORAL daily for -3 [facility] 11/13/2011 Active Premarin 0.625MG/GM 1g Vaginal every oth er day for -3 [facility] 01/20/2014 Active Accu-Chek Compact Test Drum ORAL for -3 [facility] 07/25/2011 Active SMZ-TMP DS 800-160MG 1 ORAL twice each d ay for 7 [facility] 01/27/2014 Active Multivitamins 1 ORAL daily for -3 [facility] 12/30/2013 Active metFORMIN HCl 500MG 1 ORAL twice daily f or -3 [facility] 06/28/2012 Active Immunizations Vaccine Route Administration Date Status Comme nts Influenza, live, intranasal Intramuscular 04/19/2011 Pendi ng Influenza, live, intranasal Intramuscular 06/29/2011 Pendi ng Problems Problem Type SNOMED Code ICD Code Onset Dates Problem Status W/U Status Risk Notes Problem Candidal vulvovaginitis (96377838) Candidiasis of vulva and vagina (112.1) Active confirmed Other Problem Leiomyoma of uterus (47660763) Leiomyoma of uterus, unspecified (218.9) Active confirmed Other Problem Type II diabetes mellitus without complication (175593250) Diabetes mellitus without mention of complication, type II or unspecified type, not stated as uncontrolled (250.00) Active confirmed Major Problem Type II diabetes mellitus uncontrolled (870645585) Diabetes mellitus without mention of complication, type II or unspecified type, uncontrolled (250.02) Active confirmed Major Problem Hyperlipidemia (51312767) Other and unspecified hyperlipidemia (272.4) Active confirmed Major Problem Anemia (100460871) Unspecified anemia (285.9) Active confirmed Major Problem Essential hypertension (33105874) Unspecified essential hypertension (401.9) Active confirmed Major Problem Abnormal vaginal bleeding (625829364) Other disorder of menstruation and other abnormal bleeding from female genital tract (626.8) Active confirmed Major Problem Postmenopausal bleeding (99939272) Postmenopausal bleeding (627.1) Active confirmed Diag Problem Menopausal symptom (94055303) Symptomatic menopausal or female climacteric states (627.2) Active confirmed Major Problem Generalized osteoarthritis (disorder) (785151966) Generalized osteoarthrosis, unspecified site (715.00) Active confirmed Major Problem Joint pain (finding) (91555979) Pain in joint, site unspecified (719.40) Active confirmed Diag Problem General examination of patient (510008508) Routine general medical examination at health care facility (V70.0) Active confirmed Diag Problem Gynecological examination normal (622284809894429) Routine gynecological examination (V72.31) Active confirmed Major Problem Screening for malignant neoplasm of colon (592584981) Special screening for malignant neoplasms, colon (V76.51) Active confirmed Major Plan Of Treatment No Information Insurance Providers Payer Name Payer Address Payer Phone Subscriber Number Group Number Insured Name Patient Relationship to Insured Coverage Start Date Coverage End Date [facility] [address] [place] [id number] ARY HERNANDEZ Self - patient is the insured
--- OUTSIDE RECORDS SUMMARY | 2024-06-05 10:52 | XMS_ITS | Patient Health Record ---
Author Organization [facility] Address [address] [place] [address] Care Team Providers Care Retail Delivery Driver Name Role Phone Mery Franco MD Primary Care Provider Adolfo Broussard Unavailable [phone] ALLERGIES Allergen (clinical drug ingredient) Drug/Non Drug Allergy documented on EMR Reaction Allergy Type Onset Date Status diphenhydramine Antihistamine Unknown Drug Allergy Active RESULTS Component Value Reference Range Notes Ferritin Reviewed date:04/24/2024 09:37:17 PM Interpretation: Performing Lab:[facility], [address] [place] [phone] Notes/Report: Ferritin 15 10-250 ng/mL Complete Blood Count Auto Di ff Reviewed date:04/24/2024 09:38:06 PM Interpretation: Performing Lab:[facility], [address] [place] [phone] Notes/Report: White Blood Count 5.9 4.8-10.8 X10*3/uL [...] PROFILE Reviewed date:04/24/2024 09:37:46 PM Interpretation: Performing Lab:[facility], [address] [place] [phone] Notes/Report: Iron 57 30-160 mcg/dL Total Iron Binding Capacity 315 228-428 mcg/d L Percent Iron Saturation 18 15-50 % Unsaturated Iron Binding 258 Pathology (Not yet reviewed by provider) Interpretation: Performing Lab:[address] [address] Notes/Report: Glucose, Whole Blood Reviewed date:05/07/2024 12:45:53 PM Interpretation: Performing Lab:[facility], [address] [place] [phone] Notes/Report: Glucose, Whole Blood 158 60-115 mg/dL METER # : [id number] REASON FOR REFERRAL No Information MEDICATIONS Medication [...] malignant neoplasm of colon (Z12.11) Active confirmed 675424868 Problem History of adenomatous polyp of colon (Z86.010) Active confirmed 923578286 Problem Iron deficiency anemia (D50.9) Active confirmed Iron deficiency anemia (44384543) Problem Preprocedural examination (Z01.818) Active confirmed 483920381 Problem Aspirin long-term use (Z79.82) Active confirmed 948059903 VITAL SIGNS Temperature 97.5 degrees Fahrenheit 04/23/2024 Blood pressure diastolic 00 mm Hg 04/23/2024 Height 59.25 in 04/23/2024 Blood pressure systolic 000 mm Hg 04/23/2024 Weight 140 lbs 04/23/2024 BMI 28.04 kg/m2 04/23/2024 Encounters Encounter Location Date Provider Diagnosis [facility] Outpatient [address] [place] [phone] 04/30/2024 Adolfo Dawn [facility] Outpatient [address] [place] [id number] 05/07/2024 Adolfo Dawn [facility] [address] [place] [address] 04/23/2024 Adolfo Dawn Iron deficiency anemia D50.9 ; History of adenomatous polyp of colon Z86.010 and Aspirin long-term use Z79.82 [facility] [address] [place] [address] 04/28/2024 Adolfo Dawn [facility] [address] [place] [address] 05/06/2024 Adolfo Dawn [facility] [address] [place] [address] 05/08/2024 Adolfo Dawn Iron deficiency anemia D50.9 [...] Name:Adolfo Dawn , 09/04/2024 09:40:00 AM, [address], [address], [place], [address], Insurance Providers Payer Name Payer Address Payer Phone Subscriber Number Group Number Insured Name Patient Relationship to Insured Coverage Start Date Coverage End Date [facility] [address] [place] [address] [id number] ARY HERNANDEZ Self - patient is the insured MEDICAL (GENERAL) HISTORY Medical History History ICD Code History of ulcers in her 20's Colonoscopy in 2001--- tubul ar adenoma and hyperplastic polyps removed in 2001 HTN NIDDM Herniated discs--lower back Denies NV,CVA,renal disease Colonoscopy 01/2012--hyperpl astic polyp, diverticulosis, internal hemorrhoids Asthma Colonoscopy 2016 with small tubular shant omas removed Iron def anemia noted in 2023 Surgical History Surgery Date(Month/Year) Cholecystectomy
--- OUTSIDE RECORDS SUMMARY | 2024-06-05 10:53 | XMS_ITS ---
Author Organization [facility] Address [address] [place] [address] Care Team Providers Care Salad Bar Clerk Name Role Phone Mery Franco MD Primary Care Provider Unavaila Alberto Hays Unavailable [phone] Allergies Allergen (clinical drug ingredient) Drug/Non Drug [...] day(s) Not-Taking MetroCream 0.75 % 1 application Program Development Manager ally Twice a day Not-Taking Aspirin 81 [...] Ordered Date Performed Result Body Sit e 20706-GABKVKP NAIL, 6 OR MORE 02/01/2024 N/A 17762-CIPU SKIN LESIONS, OVER 4 02/01/2024 N/A Encounters Encounter Location Date Provider Diagnosis [facility] [address] [address] 02/01/2024 Alberto Guo Type 2 diabetes mellitus [...] INSTRUCTIONS.pdf) Pending Test Test Name Order Date 57480-NBJUPQT NAIL, 6 OR MORE 02/01/2024 64492-DQHJ SKIN LESIONS, OVER 4 02/01/20 24 Next Appt Details Follow Up: prn, Reason: Provider Name:Alberto Guo , 10/03/2024 09:15:00 AM, [address] [place] [address], [phone], Procedure Notes * Category Sub-Category Detail Notes Debride Nail 6-10 Nail debridement Performance o f this nail treatment by a nonprofessional would put this patients foot and overall health at risk. Therefore, nail debridement was performed extensively to reduce/remove overall nail length, girth, thickness, subungual debris, and necrotic tissue, by manual and/or electrical means through the use of a nail nipper and/or dremel-type bearing grinder, to a more viable healthy nail plate or bed tissue 6-10. Silver nitrate used for any petechial bleeding as necessary. Definitive antifungal treatment options have been reviewed and discussed with the patient. The patient chooses, no pharmaceutical tx - 45513 Keratoma Treatment Parring or Cutting o f Benign Hyperkeratotic Lesion(s) (-57) More than 4 Lesions - The Benign hyperkeratotic lesions, as described above were pared, and/or cut utilizing a sterile 15 blade, tissue nippers, and/or dremel - 53484 , Q8 Progress Notes * Alexander GARCÍAOB:[birth year] (73 yo F)Acc No.[id number]:02/01/2024 Progress Note Patient:?Edwardo GARCÍA Provider:?Alberto Guo DPM :1950???Age:73 Y???Sex:Female D ate:02/01/2024 Address:[address] [place] [phone] Pcp:Mery Franco MD Subjective: * Chief Complaints: [...] for Sister. ?Marital status: . 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 * Medications:?TakingAspirin 8 1 MG Tablet 1 [...] mellitus with diabetic peripheral angiopathy without gangrene?Procedure: 03124-EOEC SKIN LESIONS, OVER 4 3.?Tinea unguium?Procedure: 98968-LXIVAWC NAIL, 6 OR MORE * Procedures:?Debride Nail 6-10:?Nail debridement?Performance of this nail treatment by a nonprofessional would put this patients foot and overall health at risk. Therefore, nail debridement was performed extensively to reduce/remove overall nail length, girth, thickness, subungual debris, and necrotic tissue, by manual and/or electrical means through the use of a nail nipper and/or dremel-type bearing grinder, to a more viable healthy nail plate or bed tissue 6-10. Silver nitrate used for any petechial bleeding as necessary. Definitive antifungal treatment options have been reviewed and discussed with the patient. The patient chooses, no pharmaceutical tx - 96480.?Keratoma Treatment:?Parring or Cutting of Benign Hyperkeratotic Lesion(s)?(-57) More than 4 Lesions - The Benign hyperkeratotic lesions, as described above were pared, and/or cut utilizing a sterile 15 blade, tissue nippers, and/or dremel - 24289 , Q8.? * Procedure Codes:?26433 DEBRI DE NAIL, 6 OR MORE, Modifiers: XS 08081 TRIM SKIN LESIONS, OVER 4, Modifiers: XS [...] Guo DPM Date:?2023 Generated for Fadi menjivar/Gricelda/Buzzsmitting on:?06/05/2024 10:52 AM EST History and Physical Notes * [...] at [facility] FOOTWEAR: worn, OT were inspec fremean and noted to be severely worn , [...] on palpation, TA, T1, T4, T5, T8, T9"
--- OUTSIDE RECORDS SUMMARY | 2024-06-05 10:53 | XMS_ITS ---
Author Organization [facility] Address [address] [place] [address] Care Team Providers Care Sheet Rock Finisher Name Role Phone Mery Franco MD Primary Care Provider Adolfo Broussard [phone] REASON FOR VISIT Is f/u required Encounters Encounter Location Date Provider Diagnosis [facility] [address] [place] [address] 05/08/2024 Adolfo Dawn Iron deficiency anemia D50.9 ASSESSMENTS Encounter Date Diagnosis Assessment Notes Treatment Notes Treatment Clinical Notes 05/08/2024 Iron deficiency anemia (ICD-10 - D50.9) PLAN OF TREATMENT Pending Test Test Name Order Date IRON + IBC (FE) 05/08/2024 CBC w DIFF 05/08/2024 Ferritin 05/08/2024 Next Appt Details Provider Name:Adolfo Dawn , 09/04/2024 09:40:00 AM, [address], [address], [place], [address],
--- OUTSIDE RECORDS SUMMARY | 2024-06-05 10:53 | XMS_ITS ---
Author Organization [facility] Address [address] [place] [address] Care Team Providers Care Interior Design Instructor Name Role Phone Mery Franco MD Primary Care Provider Unavaila Alberto Hays Unavailable [phone] Nicole Encounters Encounter Location Date Provider Diagnosis [address] [address] 01/25/2024 Alberto Guo Plan Of Treatment Next Appt Details Provider Name:Alberto Guo , 10/03/2024 09:15:00 AM, [address] [place], [address], Progress Notes * Alexander GARCÍAOB:[birth year] (73 yo F)Acc No.[id number]:01/25/2024 Progress Note Patient:?Jose Carlos GARCÍAan Provider:?Alberto Guo DPM :1950???Age:73 Y???Sex:Female D ate:01/25/2024 Address: [address] [id number] Pcp:Mery Franco MD Subjective: * Chief Complaints: [...] Guo DPM Date:?2023 Generated for Fadi menjivar/Gricelda/Kye on:?06/05/2024 10:53 AM EST
--- OUTSIDE RECORDS SUMMARY | 2024-06-05 10:53 | XMS_ITS ---
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 No Points 0 Interpretation Negative Vital Signs Height 5ft in 06/03/2024 Weight 138 lbs 06/03/2024 BMI 26.95 kg/m2 06/03/2024 Blood pressure systolic 120 mm Hg 06/03/19 25 Blood pressure diastolic 80 mm Hg 025 Procedures Procedure Date Ordered Date Performed Result Body Sit e 78145-DFNLXKD NAIL, 6 OR MORE 06/03/2024 N/A 04082-BDIT SKIN LESIONS, OVER 4 06/03/2024 N/A Encounters Encounter Location Date Provider Diagnosis [facility] [address] [place] [address] 06/03/2024 Alberto Guo Type 2 diabetes mellitus with diabetic peripheral angiopathy without gangrene E11.51 ; Tinea unguium B35.1 ; Pain in right toe(s) M79.674 ; Pain in left toe(s) M79.675 ; Other hammer toe(s) (acquired), right foot M20.41 and Other hammer toe(s) (acquired), left foot M20.42 Assessments Encounter Date Diagnosis (ICD Code) Assessment Notes Treatment Notes Treatment Clinical Notes Section Notes 06/03/2024 Type 2 diabetes mellitus with diabetic peripheral angiopathy without gangrene (ICD-10 - E11.51) Q7(A), Q8(2B), Q9(1B,2C) 06/03/2024 Tinea unguium (ICD-10 - B35.1) 06/03/2024 Pain in right toe(s) (ICD-10 - M79.674) 06/03/2024 Pain in left toe(s) (ICD-10 - M79.675) 06/03/2024 Other hammer toe(s) (acquired), right foot (ICD-10 - M20.41) Response to treatment,Impro vement 06/03/2024 Other hammer toe(s) (acquired), left foot (ICD-10 - M20.42) Response to treatment,Impro vement Plan Of Treatment Pending Test Test Name Order Date 96042-SNOVCCO NAIL, 6 OR MORE 06/03/2024 52497-FRBL SKIN LESIONS, OVER 4 06/03/19 25 Next Appt Details Follow Up: prn, Reason: Provider Name:Alberto Guo , 10/03/2024 09:15:00 AM, [address] [place] [address], [phone], Procedure Notes * Category Sub-Category Detail Notes Debride Nail 6-10 Nail debridement Due to the cl inical pathology outlined in the exam findings, performance of this nail treatment is medically necessary as its management by an unskilled/untrained nonprofessional would put this patients foot and overall health at risk. Therefore, debridement to affected nail(s), as described in exam ( TA, T1, T4, T5, T8, T9 ), was performed exclusively by the physician of record to reduce/remove overall nail length, girth, thickness, subungual debris, and necrotic tissue, by manual and/or electrical means through the use of a nail nipper and/or dremel-type grinder gear, to a more viable healthy nail plate or bed tissue 6-10 nails in total. [place] nitrate was used for any petechial bleeding as necessary. Definitive antifungal treatment options, both pharmaceutical and surgical, have been reviewed and discussed with the patient. The patient solely prefers the use of intermittent/as needed professional debridement services for their nail condition and understands the need for additional periodic treatments to maintain effectiveness in symptomatic relief - 54998 Keratoma Treatment Parring or Cutting o f Benign Hyperkeratotic Lesion(s) (-57) More than 4 Lesions - Due to the at risk nature of the patients medical condition as documented in the exam findings, performance of this keratoderma treatment is medically necessary as its management by an unskilled/untrained nonprofessional would put this patients foot and overall health at risk. Therefore, the benign hyperkeratotic lesions, ( 6 ) in total, locations as stated and described in the exam ( SUB MTH (s), 2, B/L , SUB MTH (s), 3, B/L ,Plantar, Heel(s), B/L ), were pared, and/or cut utilizing a sterile 15 blade, tissue nippers, and/or power dremel instrumentation by the physician of record - 62403, Q8 Progress Notes * MARY LOUMARIA LAlexander CAZARESOB:[birth year] (73 yo F)Acc No.[id number]:06/03/2024 Progress Note Patient:?Edwardo GARCÍA Provider:?Alberto Guo DPM :1950???Age:73 Y???Sex:Female D ate:06/03/2024 Address:[address] [place], [place] [id number] Pcp:Mery Franco MD Subjective: * Chief Complaints: * ???At Risk FootcarePainful N ail(s) aggravated by shoes and causing difficulty standing/walkingToe Irritation * HPI: ???At Risk footcare:?Pt States Last PCP Visit:?Date?05/26/2024 ???Toe pain:?Treatments:?Rx shoes .? * ROS:?General/Constitutional:?Nausea?denies.?Vomiting?denies.?Hunger Thirst?denies.?Loss [...] mors?denies.? * Medical History:? * Surgical History:?antonio blanc 1979 * Hospitalization/Major Diagno stic Procedure:?Denies Past Hospitalization * Family History:?Mother: dece ased, diagnosed with Other malignant neoplasm of unspecified site, Unspecified essential hypertension.?Father: , diagnosed with Other malignant neoplasm of unspecified site.?Daughter(s): alive.?Son(s): alive.?Paternal Grand Mother: stroke.?Maternal Grand Mother: stroke.?Siblings: defects.?1 son(s) , 1 daughter(s) . .? * Social History:?Tobacco Use:?Tobacco use other than smoking?Are you an other tobacco user??No ?Tobacco Control (Standard)?Tobacco use:?Nonsmoker ?Additional Findings: Tobacco non-user?Current nonsmoker ???Drugs/Alcohol:?Drugs?Have you used drugs other than those for medical reasons in the past 12 months??No ???Miscellaneous:?Caffeine: yes, 4-5 cups per day. ?Children: yes, Three. 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 ?Marital status: . 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 ???Drug/Alcohol:?AUDIT-C (Standard)?Did you have a drink containing alcohol in the past year??No ?Points?0 ?Interpretation?Negative * Medications:?TakingAspirin 8 1 MG Tablet 1 [...] upBactrim: sick to stomachyes[Allergies Verified] Objective: * Vitals:?Ht:5ft, Wt:138, BMI: 26.95, Shoe size:7-7.5, BP:120/80mm Hg, BS:121, Ht- cm: 152.4 cm, Wt-k.6 kg. * ???Past Orders: ???Lab:HEMOGLOBIN A1C (GLYCO HEMOGLOBIN) (Order Date - 05/19/2024) (Collection Date & Time - 06/03/2024 08:43 AM) ? Value Reference Range ?HEMOGLOBIN A1C % (HH) 7.9 * Examination: ???Ophthalmology Referral: ?DIABETES EYE EXAM?Vascular: ?DP PULSES (B):?0/4, B/L.?PT PULSES (B):? 1/4, B/L.?CAPILLARY FILL TIME:?delayed, all digits, B/L.?TROPHIC CONDITION-TEXTURE/ELASTICITY/TURGOR/HAIR GROWTH (B):?decreased, with sparse to absent hair growth, B/L.?TEMPERTURE GRADIENT (C):?decreased, cool to cool, proximal to distal, B/L.?PIGMENTATION:?rubrous, B/L.?EDEMA (C):? 2/4, non-pitting, without aching pain, B/L, Leg(s), Ankle(s).?CLAUDICATION (C):?denies, B/L.?REST PAIN:?denies, B/L.?Nails: ?NAILS are:?Elongated, overgrown, dystrophic, lytic, greater than 3mm thick, discolored and friable with crumbly malodorous subungual debris, with pain on palpation, TA, T1, T4, T5, T8, T9, all other nails not described with characteristics as possessing mycosis are elongated, overgrown, and dystrophic.?Dermatologic: ?SKIN FINDINGS:? Skin exam reveals Keratotic lesion(s) located at, SUB MTH (s), 2, B/L , SUB MTH (s), 3, B/L ,Plantar, Heel(s), B/L.?Orthopedic: ?DIGITAL DEFORMITIES:?Digital contracture, PIPJ, 2-5 B/L, incompl-reducible to push-up test, no over, nor underlapping , no longer, with evidence of shoe producing skin irritation.?FOOTWEAR:?good condition, exhibit proper fit and accommodation for pedal deformities. OT were inspected and noted to be worn, but in good condition giving proper support at the present time.?Neurological: ?SENSORY:?Neurological exam reveals intact sensorium, pain sensation normal, vibration sensation intact, pinprick sensation is normal in the lower extremities, 5.07 monofilament test performed at plantar aspects of 5 varied sites per foot shows sensation, normal, B/L, Pt denies, anesthesia, burning, paresthesia, tingling, B/L.?General Examination: ?GENERAL APPEARANCE:?Reveals a pleasant, alert, well nourished, well- developed, well hydrated individual, who demonstrates proper attention to hygiene/body habitus, and is in no acute distress, Pt serves as own historian for office visit today.?ORIENTED:?person, place, and time.?FOOT EXAM:?Footwear Evaluation? Assessment: * Assessment: 1.?Type 2 diabetes mellitus with diabetic peripheral angiopathy without gangrene - E11.51 (Primary)???Notes :Q7(A), Q8(2B), Q9(1B,2C)???2.?Tinea unguium - B35.1???3.?Pain in right toe(s) - M79.674???4.?Pain in left toe(s) - M79.675???5.?Other hammer toe(s) (acquired), right foot - M20.41???Specify :Chronic problem, Stable (1=3,2=4)???Notes :Response to treatment,Improvement???6.?Other hammer toe(s) (acquired), left foot - M20.42???Specify :Chronic problem, Stable (1=3,2=4)???Notes :Response to treatment,Improvement??? Plan: * Treatment: 2.?Tinea unguium?Procedure: 42991-XJBVJOV NAIL, 6 OR MORE * Procedures:?Debride Nail 6-10:?Nail debridement?Due to the clinical pathology outlined in the exam findings, performance of this nail treatment is medically necessary as its management by an unskilled/untrained nonprofessional would put this patients foot and overall health at risk. Therefore, debridement to affected nail(s), as described in exam (?TA,?T1,?T4,?T5,?T8,?T9?), was performed exclusively by the physician of record to reduce/remove overall nail length, girth, thickness, subungual debris, and necrotic tissue, by manual and/or electrical means through the use of a nail nipper and/or dremel-type grinder gear, to a more viable healthy nail plate or bed tissue 6-10 nails in total. [place] nitrate was used for any petechial bleeding as necessary. Definitive antifungal treatment options, both pharmaceutical and surgical, have been reviewed and discussed with the patient. The patient solely prefers the use of intermittent/as needed professional debridement services for their nail condition and understands the need for additional periodic treatments to maintain effectiveness in symptomatic relief - 62446.?Keratoma Treatment:?Parring or Cutting of Benign Hyperkeratotic Lesion(s)?(-57) More than 4 Lesions - Due to the at risk nature of the patients medical condition as documented in the exam findings, performance of this keratoderma treatment is medically necessary as its management by an unskilled/untrained nonprofessional would put this patients foot and overall health at risk. Therefore, the benign hyperkeratotic lesions, ( 6 ) in total, locations as stated and described in the exam (?SUB MTH (s),?2,?B/L?,?SUB MTH (s),?3,?B/L?,Plantar,?Heel(s),?B/L?), were pared, and/or cut utilizing a sterile 15 blade, tissue nippers, and/or power dremel instrumentation by the physician of record - 98395, Q8.? * Procedure Codes:?57793 DEBRI DE NAIL, 6 OR MORE, Modifiers: XS 42972 TRIM SKIN LESIONS, OVER 4, Modifiers: XS [...] a full understanding of the above information.? ??Screening/Special Tests:?Fall Risk?Screening:?No falls in the past year ?FALLS: Screening for Future Fall Risk?Have you had any falls with injury in the past year??No * Follow Up:?prn * Images: * Sign off status: Completed true * Provider:?Alberto Guo DPM Date:?2024 Generated for Fadi menjivar/Gricelda/Carrieitting on:?06/05/2024 10:52 AM EST History and Physical Notes * HPI (History of Present Illness) Category Sub-Category Detail Notes Category Not es Toe pain Treatments: Rx shoes At Risk footcare Pt States Last PCP Visit: Date: Examination Category Sub-Category Detail Notes Category Not [...] B/L , SUB MTH (s), 3, B/L ,Plantar, Heel(s), B/L Orthopedic FOOTWEAR: good condition, exhibit proper fit and accommodation for pedal deformities. OT were inspected and noted to be worn, but in good condition giving proper support at the present time DIGITAL DEFORMITIES: Digital contracture , PIPJ, 2-5 B/L, incompl-reducible to push-up test, no over, nor underlapping , no longer, with evidence of shoe producing skin irritation General Examination GENERAL APPEARANCE: Reveals a pleasant, alert, well nourished, well-developed, well hydrated individual, who demonstrates proper attention to hygiene/body habitus, and is in no acute distress, Pt serves as own historian for office visit today FOOT EXAM: Lower Extremity Neurological Exa m performed:: Yes Visual exam of foot performed:: Yes Date: 06/03/2024 ORIENTED: person, place, and t ronn Footwear Evaluation Footwear Evaluation performe d:: Yes Ophthalmology Referral DIABETES EYE EXAM Procedure Perform ed:: Yes ?Date of Exam Performed: 05/19/2024 Diabetic Retinopathy Screening:: Yes Retinal Screening Performed:: Yes Findings of Diabetic Eye Exam:: no retin opathy Vascular DP PULSES (B): 0/4, B/L PT [...] on palpation, TA, T1, T4, T5, T8, T9, all other nails not described with characteristics as possessing mycosis are elongated, overgrown, and dystrophic
--- OUTSIDE RECORDS SUMMARY | 2024-06-05 10:53 | XMS_ITS ---
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
== END ==
LOC: HO.CARD 09:58
PROVIDERS: PCP Internal Medicine; Visit Provider Internal Medicine
DX: R06.09 Other forms of dyspnea (principal); E11.9 Type 2 diabetes mellitus without complications
CPT/HCPCS: 93306; Q9957

== ENCOUNTER → 2024-06-05 10:03 | Outpatient (BNV) | payer MEDICARE, SELFPAY | PROVIDERS: PCP Internal Medicine; Visit Provider Internal Medicine | DX: I51.89 Other ill-defined heart diseases (principal); R06.09 Other forms of dyspnea | CPT/HCPCS: 93306 ==

== ENCOUNTER 2024-09-26 06:31 | Outpatient (REF) | payer MEDICARE, SELFPAY ==
[2024-09-26 10:48] LABS: Estimated Average Glucose 183 mg/dL
[2024-09-26 11:14] LABS: Alanine Aminotransferase 18 U/L (0-31); Albumin Level 4.1 g/dL (3.5-5.0); Alkaline Phosphatase 61 U/L (39-117); Anion Gap 11 (12-20); Aspartate Amino Transferase 21 U/L (5-31); Bilirubin Total 0.3 mg/dL (0.0-1.0); Blood Urea Nitrogen 11 mg/dL (9-16); Calcium 9.3 mg/dL (8.4-10.2); Carbon Dioxide 23 mmol/L (22-29); Chloride 112 mmol/L (96-108); Estimated Glomerular Filt Rate > 60; Glucose Fasting 120 mg/dL (60-99); Iron 53 mcg/dL (30-160); Percent Iron Saturation 17 % (15-50); Sodium 142 mmol/L (135-145); Total Iron Binding Capacity 312 mcg/dL (228-428); Total Protein 6.6 g/dL (6.5-8.0); Unsaturated Iron Binding 259 ug/dL
[2024-09-26 11:17] LABS: TSH reflex Free T4 2.41 uIU/mL (0.32-4.0)
== END 2024-09-26 06:32 | disposition home or self-care (01) ==
LOC: HO.HMGCLDS 06:31
PROVIDERS: PCP Internal Medicine; Visit Provider Internal Medicine
DX: E11.9 Type 2 diabetes mellitus without complications (principal)
CPT/HCPCS: 36415; 80053; 83036; 83540; 84443

== ENCOUNTER 2024-09-29 09:28 | Outpatient (AMB) | payer MEDICARE, SELFPAY ==
[2024-09-29 09:36] VITALS: BP 124/76; PULSE 85; RESP 18; TEMP 36.9; O2SAT 98; BMI 26.6
--- NOTE | 2024-09-29 09:36 | A.OFFPC_ITS ---
Vital Signs 09/29/24 09:36 Height 5 ft Weight 136 lb BMI 26.6 BP 124/76 Blood Pressure Location Lt brachial Position Sitting Respiration 18 Pulse 85 Pulse Source Pulse Oximeter Temp 98.4 F Temp Source Oral Pulse Oximetry (%) 98 Oxygen Delivery Method Room Air Intake Visit Reasons: 3 months f/up Intake Note: Pt is here today for 3 months follow up visit. Allergies losartan Allergy (Unknown, Verified 09/29/24 09:40) cough, URI, cough atorvastatin Adverse Reaction (Intermediate, Verified 09/29/24 09:40) Joint Pain simvastatin Adverse Reaction (Intermediate, Verified 09/29/24 09:40) Muscle cramps Medication List - Last Reconciled 09/29/24 by Mery Franco MD albuterol sulfate 90 mcg/actuation 2 puffs inhalation Q6H PRN ferrous sulfate 325 mg PO DAILY lancets As directed metformin ER 1,000 mg (2 x 500 mg) PO BID metronidazole 0.75% (MetroCream) 1 appl topical BEDTIME OneTouch Verio test strips (blood sugar diagnostic) test blood sugar once a day NS Tobacco use date assessed: 09/29/24 Fall risk assessment: No Falls in past year Last assessed Fall Risk: 09/29/24 Dental Screening Dental Screen Date: 09/29/24 Did you have a dental visit in the last 12 months?: Yes Did you have a dental problem in the last 6 months where you did not have access to dental care?: No Was dental information given to patient?: Patient has dentist HPI 3 months f/up HPI Details Patient presents for the follow-up of type 2 diabetes. She reports be more compliant with ADA diet and having improved fasting blood glucose down to 120s. Patient complains of chronic right knee pain worse when walking. She denies joint swelling or pain at rest PFSH Medical History (Updated 09/29/24 @ 10:19 by Mery Franco MD) Annual physical exam Colon cancer screening Hearing difficulty Hyperlipidemia Lumbar degenerative disc disease Chronic asthma Diabetic eye exam History of mammogram Diabetes Surgical History H/O colonoscopy No pertinent past surgical history Family History Father Lung cancer Lymphoma Esophageal cancer Smoker Brother Cancer of prostate Sister Breast cancer Social History Housing: House Alcohol intake: current Alcohol intake frequency: holidays/special occasions only Patient Tobacco Use Status: Never used Tobacco e-Cigarette/Vaping Use: Never Used Second Hand Smoke Exposure: Yes service: No Current occupational status: retired Cognitive needs: No Hearing needs: No Vision needs: No Questionnaire Thrive Questionnaire Date Thrive assessed: 05/28/24 AUDIT C Alcohol Use Questionnaire (AUDIT-C) 1. How often do you have a drink containing alcohol?: Never 3. How often do you have six or more drinks on one occasion?: Never Total Score: 0 BENJY-7 AMB Questionnaire BENJY-7 Date BENJY - 7 assessed: 09/29/24 Source: Developed by Drs. Adolfo Hilliard, Izzy Monet, Giuseppe Arteaga and colleagues, with an educational regla from [employer]. Review of Systems Const All systems reviewed & are unremarkable except as noted in HPI and below Eyes Reports no additional complaints ENT Reports no additional complaints Card Reports no additional complaints Resp Reports no additional complaints GI Reports no additional complaints Reports no additional complaints Physical exam (Primary Care) Vital Signs: Last Vital Signs Temp 98.4 F 09/29/24 09:36 Pulse 85 09/29/24 09:36 Resp 18 09/29/24 09:36 BP 124/76 09/29/24 09:36 Pulse Ox 98 09/29/24 09:36 Oxygen Delivery Method Room Air 09/29/24 09:36 BMI result Body Mass Index 26.6 Tobacco/Smoking Status: Tobacco use Status Tobacco use date assessed 09/29/24 09/29/24 09:38 Patient Tobacco Use Status Never used Tobacco 09/29/24 09:38 e-Cigarette/Vaping Use Never Used 09/29/24 09:38 Thrive Assessment: Date of Thrive Assessment Date Thrive assessed 05/28/24 09/29/24 09:38 Const General: no acute distress HENMT Head: Yes normal to inspection Face and sinus: Yes normal facial exam Neck Neck: Yes no lymphadenopathy and Yes supple Resp Effort & Inspection: normal respiratory effort Auscultation: clear to auscultation bilaterally Cardio Rhythm: regular rhythm Heart sounds: S1 normal heart sound present and S2 normal heart sound present GI Inspection: Yes normal to inspection Palpation (GI): Soft to palpation Percussion: Yes normal to percussion Auscultation: normal bowel sounds Coding Level of Care Code Est Pt Level 4 (27034) Complex EM visit Add On G2211 Diagnoses Knee pain, right M25.561 Diabetes E11.9 Hyperlipidemia E78.5 DM retinopathy E11.319 Assessment & Plan Assessment & Plan (1) Knee pain, right: Code(s): M25.561 - Pain in right knee Category: Medical Plan: For chronic right knee pain obtain x-ray and PT was recommended but patient declined (2) Diabetes: Code(s): E11.9 - Type 2 diabetes mellitus without complications Category: Medical Plan: A1C IS 8.0, ADA DIET INCREASE PHYSICAL ACTIVITY WEIGHT LOSS DISCUSSED WITH THE PATIENT. SHE WILL CONTINUE METFORMIN AND DECLINED TAKING ADDITIONAL MEDICATIONS. PATIENT WILL RETURN IN 3 MONTHS WITH A FASTING LABS BEFORE (3) Hyperlipidemia: Comment: pt intolerant to statin, diet controlled Code(s): E78.5 - Hyperlipidemia, unspecified Category: Medical Plan: Patient refused to take medications we will continue low-cholesterol diet (4) DM retinopathy: Comment: f/u with [facility] Code(s): E11.319 - Type 2 diabetes mellitus with unspecified diabetic retinopathy without macular edema Category: Medical Plan: Established with Ophthalmology Orders: Orders PT Evaluation and Treatment Today M25.561 - Pain in right knee XR knee RT 2V Today M25.561 - Pain in right knee Comprehensive Grabill. Panel Fast 3 Months D64.9 - Anemia, unspecified, E11.319 - Type 2 diabetes mellitus with unspecified diabetic retinopathy without macular edema, E11.9 - Type 2 diabetes mellitus without complications, E55.9 - Vitamin D deficiency, unspecified, E78.5 - Hyperlipidemia, unspecified Complete Blood Count Auto Diff 3 Months D64.9 - Anemia, unspecified, E11.319 - Type 2 diabetes mellitus with unspecified diabetic retinopathy without macular edema, E11.9 - Type 2 diabetes mellitus without complications, E55.9 - Vitamin D deficiency, unspecified, E78.5 - Hyperlipidemia, unspecified TSH reflex Free T4 3 Months D64.9 - Anemia, unspecified, E11.319 - Type 2 diabetes mellitus with unspecified diabetic retinopathy without macular edema, E11.9 - Type 2 diabetes mellitus without complications, E55.9 - Vitamin D deficiency, unspecified, E78.5 - Hyperlipidemia, unspecified Hemoglobin A1c 3 Months D64.9 - Anemia, unspecified, E11.319 - Type 2 diabetes mellitus with unspecified diabetic retinopathy without macular edema, E11.9 - Type 2 diabetes mellitus without complications, E55.9 - Vitamin D deficiency, unspecified, E78.5 - Hyperlipidemia, unspecified Vitamin D 25-OH Total 3 Months D64.9 - Anemia, unspecified, E11.319 - Type 2 diabetes mellitus with unspecified diabetic retinopathy without macular edema, E11.9 - Type 2 diabetes mellitus without complications, E55.9 - Vitamin D deficiency, unspecified, E78.5 - Hyperlipidemia, unspecified Microalbumin, Random (w Creat) 3 Months D64.9 - Anemia, unspecified, E11.319 - Type 2 diabetes mellitus with unspecified diabetic retinopathy without macular edema, E11.9 - Type 2 diabetes mellitus without complications, E55.9 - Vitamin D deficiency, unspecified, E78.5 - Hyperlipidemia, unspecified Medications: Changed From OneTouch Verio test strips (blood sugar diagnostic) test blood sugar once a day 100 ea 3RF NS E11.9 - Type 2 diabetes mellitus without complications To OneTouch Verio test strips (blood sugar diagnostic) test blood sugar twice a day 200 ea 3RF NS E11.9 - Type 2 diabetes mellitus without complications
--- OUTSIDE RECORDS SUMMARY | 2024-09-29 10:15 | XMS_ITS ---
Author Organization [facility] Address [address] [place] [address] Care Team Providers Care Crack Off Person Name Role Phone Mery Franco MD Primary Care Provider Adolfo Broussard Unavailable [phone] Allergies Allergen (clinical drug ingredient) Drug/Non Drug Allergy documented on EMR Reaction Allergy Type Onset Date Status diphenhydramine Antihistamine Unknown Drug Allergy Active REASON FOR VISIT patient presents today for iron def anemia Medications Medication SIG (Take, Route, Fr equency, Duration) Notes Start Date End Date Status Tylenol prn Active metFORMIN HCl ER 500 MG TAKE 1 TABLET BY MOUTH TWICE DAILY Oral for 30 Active Iron Active Social History AUDIT-C (Standard) Question Answer Notes Did you have a drink containing alcohol in the p ast year? No Points 0 Interpretation Negative Section Notes: Nonsmoker; Vital Signs Blood pressure systolic 111 mm Hg 09/05/19 25 Blood pressure diastolic 77 mm Hg 025 Height 59.25 in 09/04/2024 Weight 141 lbs 09/04/2024 BMI 28.24 kg/m2 09/04/2024 Encounters Encounter Location Date Provider Diagnosis [facility] [address] [place] [id number] 09/04/2024 Adolfo Dawn Iron deficiency anemia D50.9 Assessments Encounter Date Diagnosis (ICD Code) Assessment Notes Treatment Notes Treatment Clinical Notes Section Notes 09/04/2024 Iron deficiency anemia (ICD-10 - D50.9) Overall, Edwardo appears quite well. She is not having any particular GI symptoms other than some loose stools in the morning. I did not see any evidence of a colitis at the time of the colonoscopy but I will obtain a copy of her [facility] ER CT scan and laboratory reports. Her anemia has resolved but I did advise her to continue her daily iron. She was taking an 81 mg aspirin daily prior to the procedures and that may have accounted for some of the anemia, but she has been staying off of that for now. We did review the H. pylori that was noted on the gastric biopsies but at this time without any finding of ulcer disease I would be inclined to hold off on that so as not to cause more diarrhea from the antibiotics that she would need to be treated with for the H. pylori. As long as she is asymptomatic from an upper GI standpoint I do not think the H. pylori would need to be addressed at this time. Given her family history and the slight suspicion on the duodenal biopsies I shall check laboratories for celiac disease although I think that would be unlikely at this time. I did advise her that I do not think she will need any further screening colonoscopies going forward. As long as Edwardo is feeling well, and the review of her upcoming labs and the previous ER studies are nonrevealing, then she could see me again on an as needed basis. However, I did advise her to certainly call if she has any worsening GI problems or any other questions I can be of assistance with. We did review that if her anemia was to recur then we may need to have her undergo a small bowel video capsule study. Edwardo was comfortable with this plan. Thank you again for allowing me to have participated in Edwardo's care. Please do not hesitate to contact me if she develops any recurrent anemia or if I can be of any other assistance in the future. 09/04/2024 Other Continue daily Iron for the anemia I don't think we need to treat the bacteria, H. pylori, in your stomach at this time. Need [facility] ER labs and CT scan Overall, Edwardo appears quite well. She is not having any particular GI symptoms other than some loose stools in the morning. I did not see any evidence of a colitis at the time of the colonoscopy but I will obtain a copy of her [facility] ER CT scan and laboratory reports. Her anemia has resolved but I did advise her to continue her daily iron. She was taking an 81 mg aspirin daily prior to the procedures and that may have accounted for some of the anemia, but she has been staying off of that for now. We did review the H. pylori that was noted on the gastric biopsies but at this time without any finding of ulcer disease I would be inclined to hold off on that so as not to cause more diarrhea from the antibiotics that she would need to be treated with for the H. pylori. As long as she is asymptomatic from an upper GI standpoint I do not think the H. pylori would need to be addressed at this time. Given her family history and the slight suspicion on the duodenal biopsies I shall check laboratories for celiac disease although I think that would be unlikely at this time. I did advise her that I do not think she will need any further screening colonoscopies going forward. As long as Edwardo is feeling well, and the review of her upcoming labs and the previous ER studies are nonrevealing, then she could see me again on an as needed basis. However, I did advise her to certainly call if she has any worsening GI problems or any other questions I can be of assistance with. We did review that if her anemia was to recur then we may need to have her undergo a small bowel video capsule study. Edwardo was comfortable with this plan. Thank you again for allowing me to have participated in Edwardo's care. Please do not hesitate to contact me if she develops any recurrent anemia or if I can be of any other assistance in the future. Plan Of Treatment Treatment Notes Assessment Notes Other Continue daily Iron for the anemia I don't think we need to treat the bacteria, H. pylori, in your stomach at this time. Need [facility] ER labs and CT scan Pending Test Test Name Order Date CELIAC PANEL #10 09/04/2024 Next Appt Details Follow Up: prn, Reason: Progress Notes * FABY GARCÍAANDOB:[birth year] (74 yo F)Acc No.[id number]:09/04/2024 Progress Notes Patient:?EDWARDO GARCÍA Provider:?Adolfo Dawn MD :1950???Age:74 Y???Sex:Female D ate:09/04/2024 Address:[address] [place] [address], [id number] Pcp:Mery Franco MD Subjective: * Chief Complaints: * ???Patient presents today fo r iron def anemia * HPI: ???incontinence:? I saw Edwardo in follow-up today in regard to her previous iron deficiency anemia. I last saw Edwardo in April, at which time she went underwent an upper endoscopy and colonoscopy for evaluation of iron deficiency anemia. The upper endoscopy revealed a minimal hiatal hernia and gastritis. However, there was no sign of any esophagitis, ulcer disease, nor any other bleeding lesions. Duodenal biopsies were basically normal although the pathologist raised a minimal suspicion for celiac disease based on some increased lymphocytes in the tissue. Gastric biopsies revealed some inflammation and H. pylori. The colonoscopy was negative for any polyps or angiodysplasias that would account for anemia. There was no sign of any colitis. Since those procedures she has basically been feeling well. She does describe having had some loose stools each morning since the colonoscopy but thinks that is currently getting better. She was seen at [facility] ER a month or 2 ago for some abdominal pain and describes having had a CT scan and lab work. She thinks she was told the CT scan showed some inflammation in the colon. She presently describes that her bowel movements are still loose in the morning but not problematic throughout the day. She denies any hematochezia nor melena. There is a family history of celiac disease in a granddaughter but no family history of inflammatory bowel disease nor colorectal cancer. She has continued on her iron supplement daily. Her previous anemia has?resolved with a hemoglobin of 12.3 in April and 12.1 in May with a normal MCV. Her iron studies also improved with an iron of 79 and iron saturation of 24% in May. She denies any significant heartburn, dysphagia, nor anorexia. She denies any abdominal pains, jaundice, nor unintentional weight loss. Her energy level is good. * ROS:?General/Constitutional:?Change in appetite?denies.?Chills?denies.?Fatigue?admits.?Ophthalmologic:?Comments?all negative.?ENT:?Comments?all negative.?Respiratory:?hemoptysis?denies.?Cough?denies.?Cardiovascular:?Chest pain?denies.?Orthopnea?denies.?Gastrointestinal:?Comments?See HPI for details.?Genitourinary:?Hematuria?denies.?Dysuria?denies.?Musculoskeletal:?Painful joints?Back pain.?Weakness?denies.?Skin:?Itching?denies.?Rash?denies.?Neurologic:?Headache?denies.?Seizures?denies.?Psychiatric:?Comments?all negative.? * Medical History:? * Surgical History:?Cholecyste ctomy * Hospitalization/Major Diagno stic Procedure:?No Hospitalization History. * Family History:?Father: dece ased.?Mother: .? No family history of colorectal cancer. Granddaughter with celiac disease. * Social History:?Tobacco Use:?Tobacco Use/Smoking?Are you a: nonsmoker.?Drugs/Alcohol:?Alcohol Screen?Points: 2, Interpretation: Negative.?Miscellaneous:?Marital status: . 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 ???Drug/Alcohol:?AUDIT-C (Standard)?Did you have a drink containing alcohol in the past year??No,?Points?0,?Interpretation?Negative.?Nonsmoker;. * Medications:?TakingTylenol , Notes to Pharmacist: prnIron metFORMIN HCl ER 500 MG Tablet Extended Release 24 Hour TAKE 1 TABLET BY MOUTH TWICE DAILY Oral Taking Tylenol , Notes to Pharmacist: prnTaking Iron Taking metFORMIN HCl ER 500 MG Tablet Extended Release 24 Hour TAKE 1 TABLET BY MOUTH TWICE DAILY Oral DiscontinuedBaby Aspirin Medication List reviewed and reconciled with the patientDiscontinued Baby Aspirin Medication List reviewed and reconciled with the patient * Allergies:?Antihistamineyes[ Allergies Verified] Objective: * Vitals:?Wt:141lbs, Ht: 59.25 in, BMI: 28.24 Index, BP:111/77mm Hg, Wt-k.96. * Examination: ???General Examination: ?GENERAL APPEARANCE:?pleasant, well nourished, well developed, in no acute distress.?EYES:?sclera non-icteric.?ORAL CAVITY:?mucosa moist.?NECK/THYROID:?no cervical lymphadenopathy, neck supple.?SKIN:?nonjaundiced, no spider angiomata.?HEART:?S1, S2 normal.?LUNGS:?clear to auscultation bilaterally.?ABDOMEN:?normal bowel sounds, no guarding or rigidity, no guarding or rigidity, no masses palpable, soft, nontender, nondistended.?EXTREMITIES:?no edema.?NEUROLOGIC:?alert and oriented.? Assessment: * Assessment: 1.?Iron deficiency anemia - D50.9 (Primary)??? Overall, Edwardo appears quite well. She is not having any particular GI symptoms other than some loose stools in the morning. I did not see any evidence of a colitis at the time of the colonoscopy but I will obtain a copy of her [facility] ER CT scan and laboratory reports. Her anemia has resolved but I did advise her to continue her daily iron. She was taking an 81 mg aspirin daily prior to the procedures and that may have accounted for some of the anemia, but she has been staying off of that for now. We did review the H. pylori that was noted on the gastric biopsies but at this time without any finding of ulcer disease I would be inclined to hold off on that so as not to cause more diarrhea from the antibiotics that she would need to be treated with for the H. pylori. As long as she is asymptomatic from an upper GI standpoint I do not think the H. pylori would need to be addressed at this time. Given her family history and the slight suspicion on the duodenal biopsies I shall check laboratories for celiac disease although I think that would be unlikely at this time. I did advise her that I do not think she will need any further screening colonoscopies going forward. As long as Edwardo is feeling well, and the review of her upcoming labs and the previous ER studies are nonrevealing, then she could see me again on an as needed basis. However, I did advise her to certainly call if she has any worsening GI problems or any other questions I can be of assistance with. We did review that if her anemia was to recur then we may need to have her undergo a small bowel video capsule study. Edwardo was comfortable with this plan. Thank you again for allowing me to have participated in Edwardo's care. Please do not hesitate to contact me if she develops any recurrent anemia or if I can be of any other assistance in the future. Plan: * Treatment: 2.?Others? Notes: Continue daily Iron for the anemia I don't think we need to treat the bacteria, H. pylori, in your stomach at this time. [facility]?? * Procedure Codes:?3017F COLOR ECTAL CA SCREEN DOC [id number] TOBACCO NON-[id number] BP SCR NOT PRFRM REC REASON NOS * Preventive Medicine:? ??Urinary Incontinence:?Urinary Incontinence?Assessment:?Absent,?Plan of care documented:?No, reason not specified.? ??Screenings:?Fall Risk Screening?Fall Risk Assessment:?No falls in the past year,?Screening:?No falls in the past year,?Assessment:?Not performed, no reason specified,?Plan of Care:?Not documented, no reason specified.? ??Counseling:?Care goal follow-up plan:?Above Normal BMI Follow-up?Giving encouragement to exercise,?BMI management provided?Yes.? * Follow Up:?prn * * Sign off status: Completed true * Provider:?Adolfo Dawn MD Date:? 025 Generated for Fadi menjivar/Gricelda/Carrieitting on:?09/29/2024 10:15 AM EDT History and Physical Notes * HPI (History of Present Illness) Category Sub-Category Detail Notes Category Not es incontinence I saw Edwardo in follow-up today in regard to her previous iron deficiency anemia. I last saw Edwardo in April, at which time she went underwent an upper endoscopy and colonoscopy for evaluation of iron deficiency anemia. The upper endoscopy revealed a minimal hiatal hernia and gastritis. However, there was no sign of any esophagitis, ulcer disease, nor any other bleeding lesions. Duodenal biopsies were basically normal although the pathologist raised a minimal suspicion for celiac disease based on some increased lymphocytes in the tissue. Gastric biopsies revealed some inflammation and H. pylori. The colonoscopy was negative for any polyps or angiodysplasias that would account for anemia. There was no sign of any colitis. Since those procedures she has basically been feeling well. She does describe having had some loose stools each morning since the colonoscopy but thinks that is currently getting better. She was seen at [facility] ER a month or 2 ago for some abdominal pain and describes having had a CT scan and lab work. She thinks she was told the CT scan showed some inflammation in the colon. She presently describes that her bowel movements are still loose in the morning but not problematic throughout the day. She denies any hematochezia nor melena. There is a family history of celiac disease in a granddaughter but no family history of inflammatory bowel disease nor colorectal cancer. She has continued on her iron supplement daily. Her previous anemia has resolved with a hemoglobin of 12.3 in April and 12.1 in May with a normal MCV. Her iron studies also improved with an iron of 79 and iron saturation of 24% in May. She denies any significant heartburn, dysphagia, nor anorexia. She denies any abdominal pains, jaundice, nor unintentional weight loss. Her energy level is good. Examination Category Sub-Category Detail Notes Category Not es General Examination GENERAL APPEARANCE: pleasant , well nourished, well developed, in no acute distress HEAD: EYES: sclera non-icteric EARS: NOSE: THROAT: NECK/THYROID: no cervical lymphade nopathy, neck supple HEART: S1, S2 normal CHEST: LUNGS: clear to auscultatio n bilaterally ABDOMEN: normal bowel sounds, no guarding or rigidity, no guarding or rigidity, no masses palpable, soft, nontender, nondistended NEUROLOGIC: alert and oriented SKIN: nonjaundiced, no spi raven angiomata EXTREMITIES: no edema PERIPHERAL PULSES: BACK: BREASTS: MUSCULOSKELETAL: MALE GENITOURINARY: LYMPH NODES: RECTAL EXAM: FEMALE GENITOURINARY: ORAL CAVITY: mucosa moist
== END 2024-09-29 10:43 | disposition home or self-care (01) ==
LOC: HO.HMCC 09:28
PROVIDERS: PCP Internal Medicine; Visit Provider Internal Medicine
DX: M25.561 Pain in right knee (principal); E11.319 Type 2 diabetes mellitus with unspecified diabetic retinopathy without macular edema; E78.5 Hyperlipidemia, unspecified

== ENCOUNTER → 2024-09-29 09:28 | Outpatient (BNVA) | payer MEDICARE, SELFPAY | PROVIDERS: PCP Internal Medicine; Visit Provider Internal Medicine | DX: M25.561 Pain in right knee (principal); E11.319 Type 2 diabetes mellitus with unspecified diabetic retinopathy without macular edema; E78.5 Hyperlipidemia, unspecified; D64.9 Anemia, unspecified | CPT/HCPCS: 96127; 99212 ==

== ENCOUNTER 2025-01-12 06:24 | Outpatient (REF) | payer MEDICARE, SELFPAY ==
--- OUTSIDE RECORDS SUMMARY | 2024-01-25 04:45 | XMS_ITS ---
Author Organization [facility] Address [address] [place] [address] Care Team Providers Care Rn Document Improvement Specialist Name Role Phone Mery Franco MD Primary Care Provider Unavaila Alberto Hays Unavailable [phone] Nicole Encounters Encounter Location Date Provider Diagnosis [address] [address] 01/25/2024 Alberto Guo Plan Of Treatment Next Appt Details Provider Name:Alberto Guo , 02/06/2025 08:45:00 AM, [address] [place], [address], Progress Notes * Alexander GARCÍAOB:[birth year] (74 yo F)Acc No.[id number]:01/25/2024 Progress Note Patient: Edwardo ALMODOVAR Provider: Tk Guo DPM :1950 A ge:73 Y S ex:Female Date:01/25/2024 Address:[address] [id number] Pcp:Mery Franco MD Subjective: * Chief Complaints: * [address] Nicole. * Medical History: Objective: * Vitals: Assessment: Plan: * Treatment: * Images: * The named appointment provid er may or may not be the originator of this progress note, and it is not deemed complete until electronically signed by the appointment provider. Sign off status: Pending * Provider: Tk Guo DPM Date: Generated for Fadi Aaron/Kye on: 0 01/12/2025 06:29 AM EDT
--- OUTSIDE RECORDS SUMMARY | 2024-04-30 07:50 | XMS_ITS ---
Author Organization [facility] Address [address] [place] [phone] Care Team Providers Care Inclusion Intern Name Role Phone Salvador RAMIREZ, Mery Primary Care Provider Adolfo Broussard [phone] REASON FOR VISIT iron def anemia, hx of polyps Encounters Encounter Location Date Provider Diagnosis [facility] [place] [address] [place], [place] [phone] 04/30/2024 Adolfo Dawn Plan Of Treatment No Information Progress Notes * MARICHUY GARCÍAOB:[birth year] (74 yo F)Acc No.[id number]:04/30/2024 EGD and COL/MAC Patient: Torrey ARY HILARIO Provider: Torrey Dawn MD :1950 A ge:73 Y S ex:Female Date:04/30/2024 Address: [address] [id number] Pcp:Mery Franco MD Subjective: * Chief Complaints: [...] 04/30/2024 Generated for Printi ng/Faxing/eTransmitting on: 0 01/12/2025 06:30 AM EDT
--- OUTSIDE RECORDS SUMMARY | 2024-05-07 05:40 | XMS_ITS ---
Author Organization [facility] Address [address] [place] [address] Care Team Providers Care Log Roper Name Role Phone Mery Franco MD Primary Care Provider Adolfo Broussard [phone] REASON FOR VISIT iron def anemia, history of polyps Encounters Encounter Location Date Provider Diagnosis [facility] Outpatient [address] [place] [phone] 05/07/2024 Adolfo Dawn Small bowel mass K [...] * MARICHUY GARCÍAOB:[birth year] (74 yo F)Acc No.[id number]:05/07/2024 EGD and COL/MAC Patient: Torrey ARY HILARIO Provider: Torrey Dawn MD :1950 A ge:73 Y S ex:Female Date:05/07/2024 Address: [id number] Pcp:Mery Franco MD Subjective: * Chief Complaints: [...] Procedure Codes: 4 5380 COLONOSCOPY AND BIOPSY, 76222 UPPER GI ENDOSCOPY, BIOPSY * * The named appointment provid er may or may not be the originator of this progress note, and it is not deemed complete until electronically signed by the appointment provider. Sign off status: Pending * Provider: Torrey Dawn MD Date: 0 05/07/2024 Generated for Fadi menjivar/Gricelda/Carrieitting on: 0 01/12/2025 06:29 AM EDT
--- OUTSIDE RECORDS SUMMARY | 2025-01-12 06:30 | XMS_ITS | Patient Health Record ---
Author Organization [facility] Address [address] [facility] [place] [address] Care Team Providers Care Cable Hooker Name Role Phone Mery Franco MD Primary Care Provider Unavaila Alberto Hays Unavailable [phone] Allergies Allergen (clinical drug ingredient) Drug/Non Drug [...] Mery Referring Provider Last Name Salvador Referred [facility] Referred Provider Alberto Guo Referred Address [address] [place],[address] Referred Provider Specialty Podiatry Referral Priority Routine Medications Medication SIG (Take, Route, Frequency, Duration) Notes Start Date End Date Status Clindamycin Phosphate 1 % 1 application Externally Twice a day Not-Taking Extra Depth Orthopedic Shoes, (1) Pair With (3) Pair Custom Heat Molded Multidensity Innersoles Dx: NIDDM/PVD(E11.51), Hammertoe Foot Deformity(M20.41,M20.42) , Preulcerative Skin Lesion(s)(L85.1) Wear Daily; Duration: 365 days Active Ketoconazole 200 MG 1 tablet Orally Once a day; Duration: 10 day(s) Not-Matteo ing MetroCream 0.75 % 1 application Patent Searcher ally Twice a day Not-Taking Aspirin 81 MG 1 tablet Orally Once a day; Duration: 30 day(s) Active ProAir HFA 108 (90 Base) MCG/ACT 2 puffs as needed Inhalation every 6 hrs PRN Active metFORMIN HCl 1000 MG 2 tablet with a me al Orally Once a day Active Ketoconazole 2 % 1 application Apply a thin layer to externally to feet, even between toes Twice a day; Duration: 30 days Active Losartan Potassium 50 MG 1 tablet Orally Once a day; Duration: 30 day(s) Not-Matteo ing Januvia 50 MG 2 tablets Orally Twi ce a day; Duration: 30 day(s) Not-Matteo ing Iron 325 (65 Fe) MG 1 tablet Orally Once a day; Duration: 30 day(s) Not-Matteo ing Immunizations Vaccine Route Administration Date Status Comme nts Influenza Unknown 03/19/2019 Refused DOSEN'T GET TH EM. Influenza Unknown 10/03/2024 Refused COVID-19 Carlos Manuel & Carlos Manuel/Sabi Unknown [...] Problem Acquired hammer toe of right foot (3648563621698 105) Other hammer toe(s) (acquired), right foot (M20.41) Active confirmed Response to treatment,I mprovement Problem Type 2 diabetes mellitus with peripheral angiopathy (546775261) Type 2 diabetes mellitus with diabetic peripheral angiopathy without gangrene (E11.51) Active confirmed Q7(A), Q8(2B), Q9(1B,2C) Problem Acquired hammer toe of left foot (6980888911302 103) Other hammer toe(s) (acquired), left foot (M20.42) Active confirmed Response to treatment,I mprovement Vital Signs Blood pressure diastolic 65 mm Hg 10/03/2024 Height 5ft in 10/03/2024 Blood pressure systolic 128 mm Hg 10/03/2024 Weight 138 lbs 10/03/2024 BMI 26.95 kg/m2 10/03/2024 Procedures Procedure Date Ordered Date Performed Result Body Sit e 02067-ZERSBKK NAIL, 6 OR MORE 02/01/2024 N/A 18568-KXPR SKIN LESIONS, OVER 4 02/01/2024 N/A 18499-CRICPZB NAIL, 6 OR MORE 06/03/2024 N/A 38901-PJSR SKIN LESIONS, OVER 4 06/03/2024 N/A 60621-EZXXQGH NAIL, 6 OR MORE 10/03/2024 N/A 62207-EHDO SKIN LESIONS, OVER 4 10/03/2024 N/A Encounters Encounter Location Date Provider Diagnosis [facility] [address] [place] [address] 02/01/2024 Alberto Guo Type 2 diabetes mellitus with diabetic peripheral angiopathy without gangrene E11.51 ; Tinea unguium B35.1 ; Pain in right toe(s) M79.674 ; Pain in left toe(s) M79.675 ; Other hammer toe(s) (acquired), left foot M20.42 and Other hammer toe(s) (acquired), right foot M20.[address] [facility] [address] 06/03/2024 Alberto Guo Type 2 diabetes mellitus with diabetic peripheral angiopathy without gangrene E11.51 ; Tinea unguium B35.1 ; Pain in right toe(s) M79.674 ; Pain in left toe(s) M79.675 ; Other hammer toe(s) (acquired), right foot M20.41 and Other hammer toe(s) (acquired), left foot M20.[address] [facility] [address] 10/03/2024 Alberto Guo Type 2 diabetes mellitus with diabetic peripheral angiopathy without gangrene E11.51 ; Tinea unguium B35.1 ; Pain in right toe(s) M79.674 ; Pain in left toe(s) M79.675 and Tinea pedis of both feet B35.3 Assessments Encounter Date Diagnosis (ICD Code) Assessment Notes Treatment Notes Treatment Clinical Notes Section Notes 02/01/2024 Type 2 diabetes mellitus with diabetic peripheral angiopathy without gangrene (ICD-10 - E11.51) 06/03/2024 Type 2 diabetes mellitus with diabetic peripheral angiopathy without gangrene (ICD-10 - E11.51) Q7(A), Q8(2B), Q9(1B,2C) 06/03/2024 Tinea unguium (ICD-10 - B35.1) 10/03/2024 Type 2 diabetes mellitus with diabetic peripheral angiopathy without gangrene (ICD-10 - E11.51) Q7(A), Q8(2B), Q9(1B,2C) 10/03/2024 Tinea unguium (ICD-10 - B35.1) 10/03/2024 Pain in right toe(s) (ICD-10 - M79.674) 06/03/2024 Pain in right toe(s) (ICD-10 - M79.674) 02/01/2024 Tinea unguium (ICD-10 - B35.1) 02/01/2024 Pain in right toe(s) (ICD-10 - M79.674) 06/03/2024 Pain in left toe(s) (ICD-10 - M79.675) 10/03/2024 Pain in left toe(s) (ICD-10 - M79.675) 06/03/2024 Other hammer toe(s) (acquired), right foot (ICD-10 - M20.41) Response to treatment,Impro vement 02/01/2024 Pain in left toe(s) (ICD-10 - M79.675) 02/01/2024 Other hammer toe(s) (acquired), left foot (ICD-10 - M20.42) 06/03/2024 Other hammer toe(s) (acquired), left foot (ICD-10 - M20.42) Response to treatment,Impro vement 10/03/2024 Tinea pedis of both feet (ICD-10 - B35.3) 02/01/2024 Other hammer toe(s) (acquired), right foot (ICD-10 - M20.41) Patient Educated with: DIABETIC FOOT CARE INSTRUCTIONS.p df (DIABETIC FOOT CARE INSTRUCTIONS.p df) Plan Of Treatment Pending Test Test Name Order Date 96812-PQNZVGN NAIL, 6 OR MORE 06/05/2013 75524-DJKGVML NAIL, 6 OR MORE 08/28/2013 67041-LXJJELP NAIL, 6 OR MORE 12/03/2013 70606-BXFZFIY NAIL, 6 OR MORE 03/04/2014 47535-KFDKEYF NAIL, 6 OR MORE 12/24/2020 16064-HLOKQOY NAIL, 6 OR MORE 07/15/2021 31198-MITXERE NAIL, 6 OR MORE 02/21/2022 53253-CRXLBNO NAIL, 6 OR MORE 09/01/2022 30472-HKMNZIZ NAIL, 6 OR MORE 01/26/2023 50603-KXKLNTO NAIL, 6 OR MORE 2023 18765-MKHHEXZ NAIL, 6 OR MORE 02/01/2024 43172-CSPOUKF NAIL, 6 OR MORE 06/03/2024 73138-AZPOSXZ NAIL, 6 OR MORE 10/03/2024 26550-ELQP SKIN LESIONS, OVER 4 10/04/19 25 72656-WIBG SKIN LESIONS, OVER 4 06/03/19 25 82491-VJWF SKIN LESIONS, OVER 4 02/01/20 24 62760-HMRC SKIN LESIONS, OVER 4 07/27/19 24 09645-DFAN SKIN LESIONS, OVER 4 01/27/20 23 84802-FLWF SKIN LESIONS, OVER 4 09/02/19 23 60509-THFR SKIN LESIONS, OVER 4 02/22/20 22 23870-FWYG SKIN LESIONS, OVER 4 03/19/20 19 Next Appt Details Provider Name:Alberto Harley Guo , 02/06/2025 08:45:00 AM, [address] [place], [address], Insurance Providers Payer Name Payer Address Payer Phone Subscriber Number Group Number Insured Name Patient Relationship to Insured Coverage Start Date Coverage End Date [employer]age [address] [facility] [place] [address] [id number] Edwardo Borjas Self - patient is the insured 4 Medical (General) History Medical History History ICD Code asthma type II diabetes Gall bladder problems-out Hypertension Hyperlipidemia covid-19 Surgical History Surgery Date(Month/Year) gall bladder 1979
--- OUTSIDE RECORDS SUMMARY | 2025-01-12 06:30 | XMS_ITS | Clinical Summary ---
Author Organization [facility] Address [address] [place] [address] Phone Care Team Providers Care Sulky Driver Name Role Phone Mery Franco MD Primary Care Provider [phone] Allergies No known active allergies Medications No known medications Active Problems No known active problems Medical History Medical History Date Comments Diabetes mellitus ([facility] V24, [facility] V28) Asthma Social History Tobacco Use Types Packs/Day Years Used Date Smoking Tobacco: Never Smokeless Tobacco: Never Tobacco Cessation:Counseling Given: Not Answered Comments No Sex and Gender Information Value Date Recorded Sex Assigned at Female 07/04/2024 5:50 PM EDT Legal Sex Female 3:52 AM EST Gender Identity Female 07/04/2024 5:50 PM EDT Sexual Orientation Straight 07/04/2024 5: 50 PM EDT Obstetrics History Last Filed Vital Signs Vital Sign Reading Time Taken Comments Blood Pressure 165/86 07/04/2024 4:07 PM EDT Pulse 80 07/04/2024 4:07 PM EDT Temperature 36.8 C (98.2 F) 07/04/2024 4:07 PM EDT Respiratory Rate 18 07/04/2024 4:07 PM EDT Oxygen Saturation 98% 07/04/2024 4:07 PM EDT Inhaled Oxygen Concentration - - Weight 63 kg (139 lb) 07/04/2024 12:56 PM EDT Height 147.3 cm (4' 10 ) 07/04/2024 12:56 PM EDT Body Mass Index 29.05 07/04/2024 12:56 PM EDT Plan of Treatment Health Maintenance Due Date Last Done Comments Breast Cancer Screening 1952 Diabetes: Annual Foot Exam 1962 Diabetes: Annual Retina Eye Exam 1962 DTaP,Tdap,and Td Vaccines (1 - Tdap) 07/28/1971 Pneumococcal Vaccine: 50+ Ye ars (1 of 1 - PCV) 2002 Zoster Vaccines (1 of 2) 2002 Depression Screening 04/16/2024 Cholesterol Screening (Lipid Panel) 07/04/2024 Colorectal Cancer Screening: Colonoscopy 07/04/2024 Diabetes: Annual Urine Albumin-Creatinine Ratio (uACR) 07/04/2024 Diabetes: Blood Sugar Contro l Test (HGBA1C) 07/04/2024 Falls Risk Assessment 07/04/2024 Hepatitis C Screening 07/04/2024 Medicare Annual Wellness Visit 07/04/2024 Osteoporosis Screening (Bone Density Screening) 07/04/2024 Social Influencers of Health Screening 07/04/2024 COVID-19 Vaccine (1 - 2023-2 5 season) 2024 Influenza Vaccine (#1) 2024 Diabetes: Annual GFR (Glomer ular Filtration Rate) 07/04/2025 07/04/2024 Hypertension/CHF/CAD Annual BMP Blood Test 07/04/2025 07/04/2024 RSV Immunization Adult Patie nts (1 - 1-dose 75+ series) 07/28/2027 HIB Vaccines Aged Out No longer eligi ble based on patient's age to complete this topic HPV Vaccines Aged Out No longer eligi ble based on patient's age to complete this topic Hepatitis A Vaccines Aged Out No long er eligible based on patient's age to complete this topic Hepatitis B Vaccines Aged Out No long er eligible based on patient's age to complete this topic IPV Vaccines Aged Out No longer eligi ble based on patient's age to complete this topic MMR Vaccines Aged Out No longer eligi ble based on patient's age to complete this topic Meningococcal ACWY Vaccine Aged Out N o longer eligible based on patient's age to complete this topic Meningococcal B Vaccine Aged Out No l onger eligible based on patient's age to complete this topic RSV Immunization Patients Un raven 20 months Aged Out No longer eligible b ased on patient's age to complete this topic Varicella Vaccines Aged Out No longer eligible based on patient's age to complete this topic Procedures Procedure Name Priority Date/Time Associated Diagnosis Comments COMPREHENSIVE METABOLIC PANEL STAT 07/04/2024 1:14 PM EDT from Last 3 Months or Most Recently Relevant to Health Maintenance Results * (ABNORMAL) Comprehensive metabolic panel (07/04/2024 1:14 PM EDT) Sodium 140 133 - 145 mmol/L LAB CHEMISTRY METHOD 07/04/2024 2:27 PM [facility] Potassium 4.2 3.5 - 5.5 mmol/L LAB CHEMISTRY METHOD 07/04/2024 2:27 PM [facility] Chloride 107 96 - 110 mmol/L LAB CHEMISTRY METHOD 07/04/2024 2:27 PM [facility] CO2 25 21 - 32 mmol/L LAB CHEMISTRY METHOD 07/04/2024 2:27 PM [facility] Anion Gap 8 3 - 11 LAB CHEMISTRY METHOD 07/04/2024 2:27 PM [facility] Glucose 118(H) 70 - 100 mg/dL LAB CHEMISTRY METHOD 07/04/2024 2:27 PM [facility] BUN 13 5 - 25 mg/dL LAB CHEMISTRY METHOD 07/04/2024 2:27 PM [facility] Creatinine 0.65 0.50 - 1.10 mg/dL LAB CHEMISTRY METHOD 07/04/2024 2:27 PM [facility] eGFR 94 >=60 mL/min/1. 73m2 LAB CHEMISTRY METHOD 07/04/2024 2:27 PM [facility] Comment:Calculation based on the Chronic Kidney Disease Epidemiology Collaboration (CKD-EPI) equation refit without adjustment for race. BUN/Creatinine Ratio 20.0 LAB CHEMISTRY METHOD 07/04/2024 2:27 PM [facility] Calcium 9.6 8.5 - 10.5 mg/dL LAB CHEMISTRY METHOD 07/04/2024 2:27 PM [facility] AST (SGOT) 13 10 - 42 unit/L LAB CHEMISTRY METHOD 07/04/2024 2:27 PM EDT [facility] ALT (SGPT) 21 10 - 60 unit/L LAB CHEMISTRY METHOD 07/04/2024 2:27 PM EDT [facility] Alkaline Phosphatase 73 42 - 121 unit/L LAB CHEMISTRY METHOD 07/04/2024 2:27 PM EDT [facility] Total Protein 6.7 6.0 - 8.0 g/dL LAB CHEMISTRY METHOD 07/04/2024 2:27 PM EDT [facility] Albumin 3.4 3.2 - 5.0 g/dL LAB CHEMISTRY METHOD 07/04/2024 2:27 PM EDT [facility] Total Bilirubin 0.4 0.0 - 1.4 mg/dL LAB CHEMISTRY METHOD 07/04/2024 2:27 PM EDT [facility] Blood Venous blood specimen / Unknown Venipuncture / Unknown 07/04/2024 1:14 PM EDT 07/04/2024 1:24 PM EDT Gui Aguilar MD LAB BLOOD ORDERABLES Final Resu lt [facility] [address] [place] [address], from Last 3 Months or Most Recently Relevant to Health Maintenance Insurance [employer] Care Teams Sulky Driver Relationship Specialty Start Date End Date Mery Franco MD [address] [place] [address] PCP - General Internal Medicine 07/04/24
--- OUTSIDE RECORDS SUMMARY | 2025-01-12 06:30 | XMS_ITS | Patient Health Record ---
Author Organization [facility] Address [address] [place] [address] Care Team Providers Care Store Sales Consultant Name Role Phone Amy Herrera Unavailable [phone] Reason For Referral No Information Medications Medication SIG (Take, Route, Frequency, Duration) Notes Start Date End Date Status Ferrous Sulfate 325mg 1 ORAL three times daily; Duration: -3 [facility] 06/28/2012 Active Januvia 1 ORAL daily; Durati on: - [facility] 12/30/2013 Active valACYclovir HCl 500MG 2 ORAL three time s each day; Duration: [facility] 01/20/2014 Active Aspirin EC 81MG 1 ORAL daily; Durati on: - [facility] 06/29/2011 Active Cozaar 50MG 1 ORAL daily; Durati on: - [facility] 11/13/2011 Active Premarin 0.625MG/GM 1g Vaginal every oth er day; Duration: - [facility] 01/20/2014 Active Accu-Chek Compact Test Drum ORAL; Duration: - [facility] 01/2012 Active SMZ-TMP DS 800-160MG 1 ORAL twice each d ay; Duration: [facility] 01/27/2014 Active Multivitamins 1 ORAL daily; Durati on: - [facility] 12/30/2013 Active metFORMIN HCl 500MG 1 ORAL twice daily; Duration: - [facility] 06/28/2012 Active Immunizations Vaccine Route Administration Date Status Comme nts Influenza, live, intranasal Intramuscular 04/19/2011 Pendi ng Influenza, live, intranasal Intramuscular 06/29/2011 Pendi ng Problems Problem Type SNOMED Code ICD Code Onset Dates Problem Status W/U Status Risk Notes Problem Candidal vulvovaginitis (97229481) Candidiasis of vulva and vagina (112.1) Active confirmed Other Problem Leiomyoma of uterus (97327076) Leiomyoma of uterus, unspecified (218.9) Active confirmed Other Problem Type II diabetes mellitus without complication (792531975) Diabetes mellitus without mention of complication, type II or unspecified type, not stated as uncontrolled (250.00) Active confirmed Major Problem Type II diabetes mellitus uncontrolled (789942546) Diabetes mellitus without mention of complication, type II or unspecified type, uncontrolled (250.02) Active confirmed Major Problem Hyperlipidemia (75836394) Other and unspecified hyperlipidemia (272.4) Active confirmed Major Problem Anemia (901206351) Unspecified anemia (285.9) Active confirmed Major Problem Essential hypertension (59279408) Unspecified essential hypertension (401.9) Active confirmed Major Problem Abnormal vaginal bleeding (583335110) Other disorder of menstruation and other abnormal bleeding from female genital tract (626.8) Active confirmed Major Problem Postmenopausal bleeding (82147509) Postmenopausal bleeding (627.1) Active confirmed Diag Problem Menopausal symptom (18942842) Symptomatic menopausal or female climacteric states (627.2) Active confirmed Major Problem Generalized osteoarthritis (disorder) (921281021) Generalized osteoarthrosis, unspecified site (715.00) Active confirmed Major Problem Joint pain (05322191) Pain in joint, site unspecified (719.40) Active confirmed Diag Problem General examination of patient (409720852) Routine general medical examination at health care facility (V70.0) Active confirmed Diag Problem Gynecological examination normal (914373278321765) Routine gynecological examination (V72.31) Active confirmed Major Problem Screening for malignant neoplasm of colon (791493266) Special screening for malignant neoplasms, colon (V76.51) Active confirmed Major Plan Of Treatment No Information Insurance Providers Payer Name Payer Address Payer Phone Subscriber Number Group Number Insured Name Patient Relationship to Insured Coverage Start Date Coverage End Date [facility] [address] [facility] [place] [id number] [phone] [id number] ARY HERNANDEZ Self - patient is the insured
--- OUTSIDE RECORDS SUMMARY | 2025-01-12 06:30 | XMS_ITS | Patient Health Record ---
Author Organization [facility] Address [address] [place] [address] Care Team Providers Care Acute Dialysis Registered Nurse Name Role Phone Mery Franco MD Primary Care Provider Adolfo Broussard Unavailable [phone] Allergies Allergen (clinical drug ingredient) Drug/Non Drug Allergy documented on EMR Reaction Allergy Type Onset Date Status diphenhydramine Antihistamine Unknown Drug Allergy Active Results Component Value Reference Range Notes Ferritin Reviewed date:04/24/2024 09:37:17 PM Interpretation: Performing Lab:[facility], [address] [place] [phone] Notes/Report: Ferritin 15 10-250 ng/mL Complete Blood Count Auto Di ff Reviewed date:04/24/2024 09:38:06 PM Interpretation: Performing Lab:[facility], [address] [place] [phone] Notes/Report: White Blood Count 5.9 4.8-10.8 X10*3/uL [...] PROFILE Reviewed date:04/24/2024 09:37:46 PM Interpretation: Performing Lab:[facility], [address] [place] [phone] Notes/Report: Iron 57 30-160 mcg/dL Total Iron Binding Capacity 315 228-428 mcg/d L Percent Iron Saturation 18 15-50 % Unsaturated Iron Binding 258 Glucose, Whole Blood Reviewed date:05/07/2024 12:45:53 PM Interpretation: Performing Lab:[facility], [address] [place] [phone] Notes/Report: Glucose, Whole Blood 158 60-115 mg/dL METER # : [id number] Pathology (Not yet reviewed by provider) Interpretation: Performing Lab:[facility], [address] [place] [phone] Notes/Report: Reason For Referral No Information Medications Medication SIG (Take, Route, Fr equency, Duration) Notes Start Date End Date Status Tylenol prn Active metFORMIN HCl ER 500 MG TAKE 1 TABLET BY MOUTH TWICE DAILY Oral for 30 Active Iron Active Immunizations Vaccine Route Administration Date Status Comme nts Influenza Unknown 04/23/2024 Refused Social History AUDIT-C (Standard) Question Answer Notes Did you have a drink containing alcohol in the p ast year? No Points 0 Interpretation Negative Section Notes: Nonsmoker; occ. wine Nonsmoker; occ. wine Nonsmoker; occ. wine Nonsmoker; Problems Problem Type SNOMED Code ICD Code Onset Dates Problem Status W/U Status Risk Notes Problem 841457987 Encounter for screening for malignant neoplasm of colon (Z12.11) Active confirmed Problem 004998943 History of adenomatous polyp of colon (Z86.010) Active confirmed Problem Iron deficiency anemia (38628001) Iron deficiency anemia (D50.9) Active confirmed Problem 699742211 Preprocedural examination (Z01.818) Active confirmed Problem 359082768 Aspirin long-ter m use (Z79.82) Active confirmed Vital Signs Temperature 97.5 degrees Fahrenheit 04/23/2024 Blood pressure diastolic 77 mm Hg 09/04/2024 Height 59.25 in 09/04/2024 Blood pressure systolic 111 mm Hg 09/04/2024 Weight 141 lbs 09/04/2024 BMI 28.24 kg/m2 09/04/2024 Encounters Encounter Location Date Provider Diagnosis [facility] Outpatient [address] [place] [id number] 05/07/2024 Adolfo Dawn Small bowel mass K63 .89 ; Diverticulosis of colon K57.30 ; Internal hemorrhoids K64.[address] [facility] [address] [place] [phone] 04/23/2024 Adolfo Dawn Iron deficiency anem ia D50.9 ; History of adenomatous polyp of colon Z86.010 and Aspirin long-term use Z79.82 [facility] [address] [place] [phone] 09/04/2024 Adoflo Dawn Iron deficiency anem ia D50.9 [facility] [address] [place] [phone] 04/28/[address] [facility] [address] [place] [phone] 05/06/[address] [facility] [address] [place] [phone] 05/08/2024 Adolfo Dawn Iron deficiency anem ia D50.9 Assessments Encounter Date Diagnosis (ICD Code) Assessment Notes Treatment Notes Treatment Clinical Notes Section Notes 05/07/2024 Diverticulosis of colon (ICD-10 - K57.30) 05/07/2024 Small bowel mass (ICD-10 - K63.89) 04/23/2024 History of adenomatous polyp of colon (ICD-10 - Z86.010) Overall, Edwardo appears well and is not having any localizing GI symptoms at this time. However, we did review her iron deficiency anemia and the primary concern being that of some chronic GI blood loss contributing to this. We did review the possibilities of things such as angiodysplasias, upper or lower GI neoplasms, and chronic upper GI blood loss related to her aspirin use from things such as silent gastritis and/or ulcer disease. We also reviewed the possibility of iron malabsorption from something such as celiac disease that would lead to subsequent anemia. I have recommended she undergo an upper endoscopy and colonoscopy later this month for further evaluation. We did review the rationale for these procedures in regard to ruling outthings such as a GI neoplasm. Full consent was obtained from her for both procedures, including risks of bleeding and perforation. The procedures will be done with monitored anesthesia care. She was given the below instructions regarding adjustment of her medications for the procedures. I shall repeat a CBC along with an iron profile to be sure things have remained fairly stable since her last labs back in December. Edwardo was comfortable with this plan. Thank you again for allowing me to participate in Edwardo's care. I shall continue to keep you advised of her progress. 04/23/2024 Iron deficiency anemia (ICD-10 - D50.9) Stop Iron and Aspirin for 1 week before the procedures Do not take the Metformin the night before or on the morning of the procedures Overall, Edwardo appears well and is not having any localizing GI symptoms at this time. However, we did review her iron deficiency anemia and the primary concern being that of some chronic GI blood loss contributing to this. We did review the possibilities of things such as angiodysplasias, upper or lower GI neoplasms, and chronic upper GI blood loss related to her aspirin use from things such as silent gastritis and/or ulcer disease. We also reviewed the possibility of iron malabsorption from something such as celiac disease that would lead to subsequent anemia. I have recommended she undergo an upper endoscopy and colonoscopy later this month for further evaluation. We did review the rationale for these procedures in regard to ruling outthings such as a GI neoplasm. Full consent was obtained from her for both procedures, including risks of bleeding and perforation. The procedures will be done with monitored anesthesia care. She was given the below instructions regarding adjustment of her medications for the procedures. I shall repeat a CBC along with an iron profile to be sure things have remained fairly stable since her last labs back in December. Edwardo was comfortable with this plan. Thank you again for allowing me to participate in Edwardo's care. I shall continue to keep you advised of her progress. 09/04/2024 Iron deficiency anemia (ICD-10 - D50.9) Overall, Edwardo appears quite well. She is not having any particular GI symptoms other than some loose stools in the morning. I did not see any evidence of a colitis at the time of the colonoscopy but I will obtain a copy of her [facility] CT scan and laboratory reports. Her [...] of any other assistance in the future. 05/08/2024 Iron deficiency anemia (ICD-10 - D50.9) 05/07/2024 Internal hemorrhoids (ICD-10 - K64.8) 04/23/2024 Aspirin long-term use (ICD-10 - Z79.82) Overall, Edwardo appears well and is not having any localizing GI symptoms at this time. However, we did review her iron deficiency anemia and the primary concern being that of some chronic GI blood loss contributing to this. We did review the possibilities of things such as angiodysplasias, upper or lower GI neoplasms, and chronic upper GI blood loss related to her aspirin use from things such as silent gastritis and/or ulcer disease. We also reviewed the possibility of iron malabsorption from something such as celiac disease that would lead to subsequent anemia. I have recommended she undergo an upper endoscopy and colonoscopy later this month for further evaluation. We did review the rationale for these procedures in regard to ruling outthings such as a GI neoplasm. Full consent was obtained from her for both procedures, including risks of bleeding and perforation. The procedures will be done with monitored anesthesia care. She was given the below instructions regarding adjustment of her medications for the procedures. I shall repeat a CBC along with an iron profile to be sure things have remained fairly stable since her last labs back in December. Edwardo was comfortable with this plan. Thank you again for allowing me to participate in Edwardo's care. I shall continue to keep you advised of her progress. 05/07/2024 Gastritis (ICD-10 - K29.70) 09/04/2024 Other Continue daily Iron for the anemia I don't think we need to treat the bacteria, H. pylori, in your stomach at this time. Need [facility] ER labs and CT scan Overall, Edwardo appears quite well. She is not having any particular GI symptoms other than some loose stools in the morning. I did not see any evidence of a colitis at the time of the colonoscopy but I will obtain a copy of her [facility] CT scan and laboratory reports. Her [...] assistance in the future. Plan Of Treatment Pending Test Test Name Order Date IRON + IBC (FE) 04/23/2024 IRON + IBC (FE) 05/08/2024 CBC w DIFF 05/08/2024 CBC w DIFF 04/23/2024 CELIAC PANEL #10 09/04/2024 Ferritin 05/08/2024 Pathology 05/07/2024 Future Test Test Name Order Date COLONOSCOPY 12/29/2011 COLONOSCOPY 08/31/2016 UPPER GI ENDOSCOPY 04/23/2024 COLONOSCOPY 04/23/2024 Insurance Providers Payer Name Payer Address Payer Phone Subscriber Number Group Number Insured Name Patient Relationship to Insured Coverage Start Date Coverage End Date [facility] [address] [place] [address] [id number] ZAINA LINO EDWARDO Self - patient is the insured Medical (General) History Medical History History ICD Code History of ulcers in her 20's Colonoscopy in 2001--- tubul ar adenoma and hyperplastic polyps removed in 2001 HTN NIDDM Herniated discs--lower back Denies [place],CVA,renal disease Colonoscopy 01/2012--hyperpl astic polyp, diverticulosis, internal hemorrhoids Asthma Colonoscopy 2016 with small tubular shant omas removed Iron def anemia noted in --Upper endoscopy in April 2024 revealed some minimal changes of gastritis and a minimal hiatal hernia. Duodenal biopsies were normal other than some slightly increased lymphocytes which raised a possible suspicion of celiac disease. Gastric biopsies show some inflammation and H. pylori. There was no ulcer disease. Her colonoscopy at the same time was negative for polyps or angiodysplasias. She did stop her aspirin therapy and her anemia resolved with the use of supplemental iron. Surgical History Surgery Date(Month/Year) Cholecystectomy
[2025-01-12 10:00] LABS: MANUAL DIFF FLAG NO
[2025-01-12 10:08] LABS: Hematocrit 38.0 % (37.0-47.0); Hemoglobin 12.3 g/dl (12.0-16.0); Imm Gran Abs Auto 0.02 X10*3/uL (0.00-0.03); Imm Gran Pct Auto 0.3 % (0.0-0.4); Lymphocytes Absolute Auto 1.9 X10*3/uL (1.2-4.9); Mean Corpuscular HGB Conc 32.4 g/dl (31.0-35.0); Mean Corpuscular Hemoglobin 28.1 pg (27.0-33.0); Mean Corpuscular Volume 86.8 fL (80.0-98.0); NRBC Abs Auto 0.000 X10*3/uL (0.0-0.012); NRBC Pct Auto 0.0 /100WBC (0.0-0.2); Platelet Count 202 X10*3/uL (160-400); Red Blood Count 4.38 X10*6/uL (4.20-5.50); White Blood Count 6.3 X10*3/uL (4.8-10.8)
[2025-01-12 10:56] LABS: Alanine Aminotransferase 17 U/L (0-31); Albumin Level 3.9 g/dL (3.5-5.0); Alkaline Phosphatase 57 U/L (39-117); Anion Gap 11 (12-20); Aspartate Amino Transferase 21 U/L (5-31); Blood Urea Nitrogen 12 mg/dL (9-16); Calcium 8.9 mg/dL (8.4-10.2); Carbon Dioxide 23 mmol/L (22-29); Chloride 111 mmol/L (96-108); Estimated Glomerular Filt Rate > 60; Potassium 4.1 mmol/L (3.3-5.1); Sodium 141 mmol/L (135-145); Total Protein 6.6 g/dL (6.5-8.0)
== END 2025-01-12 06:25 | disposition home or self-care (01) ==
LOC: HO.HMGCLDS 06:24
PROVIDERS: PCP Internal Medicine; Visit Provider Internal Medicine
DX: E11.319 Type 2 diabetes mellitus with unspecified diabetic retinopathy without macular edema (principal); E78.5 Hyperlipidemia, unspecified; D64.9 Anemia, unspecified; E55.9 Vitamin D deficiency, unspecified
CPT/HCPCS: 36415; 80053; 82043; 82306; 82570; 83036; 84443; 85025

== ENCOUNTER 2025-01-13 09:07 | Outpatient (AMB) | payer MEDICARE, SELFPAY ==
--- OUTSIDE RECORDS SUMMARY | 2024-01-25 04:45 | XMS_ITS ---
Author Organization [facility] Address [address] [place] [address] Care Team Providers Care Table Assembler Metal Name Role Phone Mery Franco MD Primary Care Provider Unavaila Alberto Hays Unavailable [phone] Nicole Encounters Encounter Location Date Provider Diagnosis [address] [address] 01/25/2024 Alberto Guo Plan Of Treatment Next Appt Details Provider Name:Alberto Guo , 02/06/2025 08:45:00 AM, [address] [place], [address], Progress Notes * Alexander GARCÍAOB:[birth year] (74 yo F)Acc No.[id number]:01/25/2024 Progress Note Patient: Edwardo ALMODOVAR Provider: Tk Guo DPM :1950 A ge:73 Y S ex:Female Date:01/25/2024 Address:[address] [id number] Pcp:Mery Franco MD Subjective: * Chief Complaints: * [address] Nicole[address] * Medical History: Objective: * Vitals: Assessment: Plan: * Treatment: * Images: * The named appointment provid er may or may not be the originator of this progress note, and it is not deemed complete until electronically signed by the appointment provider. Sign off status: Pending * Provider: kT Guo DPM Date: Generated for Fadi Aaron/Kye on: 0 01/13/2025 09:52 AM EDT
--- OUTSIDE RECORDS SUMMARY | 2024-04-30 07:50 | XMS_ITS ---
Author Organization [facility] Address [address] [place] [address] Care Team Providers Care Tape Duplicator Name Role Phone Salvador RAMIREZ, Mery Primary Care Provider Adolfo Broussard [phone] REASON FOR VISIT iron def anemia, hx of polyps Encounters Encounter Location Date Provider Diagnosis [facility] [place] [address] [place], [place] [phone] 04/30/2024 Adolfo Dawn Plan Of Treatment No Information Progress Notes * MARICHUY GARCÍAOB:[birth year] (74 yo F)Acc No.[id number]:04/30/2024 EGD and COL/MAC Patient: Torrey ARY HILARIO Provider: Torrey Dawn MD :1950 A ge:73 Y S ex:Female Date:04/30/2024 Address: [id number] Pcp:Mery Franco MD Subjective: * Chief Complaints: * 1 . Iron def anemia, hx of polyps. * Medical History: Objective: * Vitals: Assessment: Plan: * Treatment: * * The named appointment provid er may or may not be the originator of this progress note, and it is not deemed complete until electronically signed by the appointment provider. Sign off status: Pending * Provider: Torrey Dawn MD Date: 0 04/30/2024 Generated for Printi ng/Faxing/eTransmitting on: 0 01/13/2025 09:52 AM EDT
--- OUTSIDE RECORDS SUMMARY | 2024-05-07 05:40 | XMS_ITS ---
Author Organization [facility] Address [address] [place] [address] Care Team Providers Care Uniform Cap Operator Name Role Phone Mery Franco MD Primary Care Provider Adolfo Broussard [phone] REASON FOR VISIT iron def anemia, history of polyps Encounters Encounter Location Date Provider Diagnosis [facility] Outpatient [address] [place] [phone] 05/07/2024 Adolfo Dawn Small bowel mass K 63.89 ; Diverticulosis of colon K57.30 ; Internal hemorrhoids K64.8 and Gastritis K29.70 Assessments Encounter Date Diagnosis (ICD Code) Assessment Notes Treatment Notes Treatment Clinical Notes Section Notes 05/07/2024 Small bowel mass (ICD-10 - K63.89) 05/07/2024 Diverticulosis of colon (ICD-10 - K57.30) 05/07/2024 Internal hemorrhoids (ICD-10 - K64.8) 05/07/2024 Gastritis (ICD-10 - K29.70) Plan Of Treatment No Information Progress Notes * MARICHUY GARCÍAOB:[birth year] (74 yo F)Acc No.[id number]:05/07/2024 EGD and COL/MAC Patient: Torrey ARY HILARIO Provider: Torrey Dawn MD :1950 A ge:73 Y S ex:Female Date:05/07/2024 Address: [id number] Pcp:Mery Franco MD Subjective: * Chief Complaints: * 1 . Iron def anemia, history of polyps. * Medical History: Objective: * Vitals: Assessment: * Assessment: 1. S mall bowel mass - K63.89 (Primary) 2 . D iverticulosis of colon - K57.30 3 . I nternal hemorrhoids - K64.8 4 . G astritis - K29.70? Plan: * Treatment: * Procedure Codes: 4 5380 COLONOSCOPY AND BIOPSY, [address] UPPER GI ENDOSCOPY, BIOPSY * * The named appointment provid er may or may not be the originator of this progress note, and it is not deemed complete until electronically signed by the appointment provider. Sign off status: Pending * Provider: Torrey Dawn MD Date: 0 05/07/2024 Generated for Fadi menjivar/Gricelda/Carrieitting on: 0 01/13/2025 09:51 AM EDT
[2025-01-13 09:09] VITALS: BP 118/74; PULSE 88; RESP 18; TEMP 36.9; O2SAT 97; BMI 26.6
--- NOTE | 2025-01-13 09:09 | A.OFFPC_ITS ---
Vital Signs 01/13/25 09:09 Height 5 ft Weight 136 lb BMI 26.6 BP 118/74 Blood Pressure Location Lt brachial Position Sitting Respiration 18 Pulse 88 Pulse Source Pulse Oximeter Temp 98.5 F Temp Source Oral Pulse Oximetry (%) 97 Oxygen Delivery Method Room Air Intake Visit Reasons: 3m follow up Intake Note: Pt is here today for 3 months follow up visit. Pt states that she has a spot on her nose that she would like to have checked. Allergies losartan Allergy (Unknown, Verified 01/13/25 09:26) cough, URI, cough atorvastatin Adverse Reaction (Intermediate, Verified 01/13/25 09:26) Joint Pain simvastatin Adverse Reaction (Intermediate, Verified 01/13/25 09:26) Muscle cramps Medication List - Last Reconciled 01/13/25 by Mery Franco MD albuterol sulfate 90 mcg/actuation 2 puffs inhalation Q6H PRN ferrous sulfate 325 mg PO DAILY lancets As directed metformin ER 1,000 mg (2 x 500 mg) PO BID metronidazole 0.75% (MetroCream) 1 appl topical BEDTIME OneTouch Verio test strips (blood sugar diagnostic) test blood sugar twice a day NS Tobacco use date assessed: 01/13/25 Fall risk assessment: No Falls in past year Last assessed Fall Risk: 01/13/25 Dental Screening Dental Screen Date: 09/29/24 HPI 3m follow up HPI Details Pt presents for f/u DM 2, poorly controlled due to noncompliance with ADA diet. PFSH Medical History Annual physical exam Colon cancer screening Hearing difficulty Hyperlipidemia Lumbar degenerative disc disease Chronic asthma Diabetic eye exam History of mammogram Diabetes Surgical History H/O colonoscopy No pertinent past surgical history Family History Father Lung cancer Lymphoma Esophageal cancer Smoker Brother Cancer of prostate Sister Breast cancer Social History Housing: House Alcohol intake: current Alcohol intake frequency: holidays/special occasions only Patient Tobacco Use Status: Never used Tobacco e-Cigarette/Vaping Use: Never Used Second Hand Smoke Exposure: Yes service: No Current occupational status: retired Cognitive needs: No Hearing needs: No Vision needs: No Questionnaire PHQ-9 Over the last 2 weeks, how often have you been bothered by any of the following problems? 1. Little interest or pleasure in doing things: not at all 2. Feeling down, depressed, or hopeless: not at all 3. Trouble falling or staying asleep, or sleeping too much: not at all 4. Feeling tired or having little energy: not at all 5. Poor appetite or overeating: not at all 6. Feeling bad about yourself - or that you are a failure or have let yourself or your family down: not at all 7. Trouble concentrating on things, such as reading the newspaper or watching television: not at all 8. Moving or speaking so slowly that other people could have noticed. Or the opposite - being so fidgety or restless that you have been moving around a lot more than usual: not at all 9. Thoughts that you would be better off or of hurting yourself in some way: not at all Total score: 0 Depression Screening Interpretation: Negative Depression Screening Done: Yes Source: Developed by Drs. Adolfo Hilliard, Izzy Monet, Giuseppe Arteaga and colleagues, with an educational regla from [employer]. Thrive Questionnaire Date Thrive assessed: 05/28/24 BENJY-7 AMB Questionnaire BENJY-7 Date BENJY - 7 assessed: 09/29/24 Feeling nervous, anxious, or on edge: 0 = Not at all Not being able to stop or control worryin = Not at all Worrying too much about different things: 0 = Not at all Trouble relaxin = Not at all Being so restless that it is hard to sit still: 0 = Not at all Becoming easily annoyed or irritable: 0 = Not at all Feeling afraid as if something awful might happen: 0 = Not at all Total BENJY-7 score (0-4 normal; 5-9 mild; 10-14 moderate; 15-21 severe): 0 Source: Developed by Drs. Adolfo Hilliard, Izzy Monet, Giuseppe Arteaga and colleagues, with an educational regla from [employer]. Review of Systems Const All systems reviewed & are unremarkable except as noted in HPI and below Eyes Reports no additional complaints ENT Reports no additional complaints Card Reports no additional complaints Resp Reports no additional complaints GI Reports no additional complaints Reports no additional complaints Physical exam (Primary Care) Vital Signs: Last Vital Signs Temp 98.5 F 01/13/25 09:09 Pulse 88 01/13/25 09:09 Resp 18 01/13/25 09:09 BP 118/74 01/13/25 09:09 Pulse Ox 97 01/13/25 09:09 Oxygen Delivery Method Room Air 01/13/25 09:09 BMI result Body Mass Index 26.6 Tobacco/Smoking Status: Tobacco use Status Tobacco use date assessed 01/13/25 01/13/25 09:30 Patient Tobacco Use Status Never used Tobacco 01/13/25 09:09 e-Cigarette/Vaping Use Never Used 01/13/25 09:09 PHQ-9: PHQ-9 Score PHQ-9: Total score 0 01/13/25 10:15 Depression Screening Interpretation: Negative Thrive Assessment: Date of Thrive Assessment Date Thrive assessed 05/28/24 01/13/25 09:09 Const General: no acute distress HENMT Head: Yes normal to inspection Mouth: Normal oral and palatal mucosa present Throat: Yes posterior oropharynx normal Eyes General: appearance normal, both eyes and all related structures Resp Effort & Inspection: normal respiratory effort Auscultation: clear to auscultation bilaterally Cardio Rhythm: regular rhythm Heart sounds: S1 normal heart sound present and S2 normal heart sound present GI Inspection: Yes normal to inspection Palpation (GI): Soft to palpation Percussion: Yes normal to percussion Auscultation: normal bowel sounds Coding Level of Care Code Est Pt Level 4 (56906) Diagnoses Dysplastic nevi D23.9 Diabetes E11.9 Hyperlipidemia E78.5 Assessment & Plan Assessment & Plan (1) Dysplastic nevi: Comment: on nose Code(s): D23.9 - Other benign neoplasm of skin, unspecified Category: Medical Plan: refer to Dermatology (2) Diabetes: Code(s): E11.9 - Type 2 diabetes mellitus without complications Category: Medical Plan: A1C 8.1, ADA diet, increase physical activity discussed, add Jardiance, side effects discussed (3) Hyperlipidemia: Comment: pt intolerant to statin, diet controlled Code(s): E78.5 - Hyperlipidemia, unspecified Category: Medical Plan: pt refuses meds, cont low cholesterol diet Orders: Orders Comprehensive [place]. Panel Fast 3 Months E11.9 - Type 2 diabetes mellitus without complications, E55.9 - Vitamin D deficiency, unspecified, E78.5 - Hyperlipidemia, unspecified Lipid Panel 3 Months E11.9 - Type 2 diabetes mellitus without complications, E55.9 - Vitamin D deficiency, unspecified, E78.5 - Hyperlipidemia, unspecified Microalbumin, Random (w Creat) 3 Months E11.9 - Type 2 diabetes mellitus without complications, E55.9 - Vitamin D deficiency, unspecified, E78.5 - Hyperlipidemia, unspecified Complete Blood Count Auto Diff 3 Months E11.9 - Type 2 diabetes mellitus without complications, E55.9 - Vitamin D deficiency, unspecified, E78.5 - Hyperlipidemia, unspecified Hemoglobin A1c 3 Months E11.9 - Type 2 diabetes mellitus without complications, E55.9 - Vitamin D deficiency, unspecified, E78.5 - Hyperlipidemia, unspecified Referrals Dermatology Referral D23.9 - Other benign neoplasm of skin, unspecified Medications: New Jardiance (empagliflozin) 10 mg PO DAILY 90 tabs 0RF NS
--- OUTSIDE RECORDS SUMMARY | 2025-01-13 09:52 | XMS_ITS | Patient Health Record ---
Author Organization [employer] [facility] (Formerly [facility]) Address [address] [place] [address] Care Team Providers Care Director Of Event Management Name Role Phone Amy Herrera Unavailable [phone] Reason For Referral No Information Medications Medication SIG (Take, Route, Frequency, Duration) Notes Start Date End Date Status Ferrous Sulfate 325mg 1 ORAL three times daily; Duration: -3 [facility] 06/28/2012 Active Januvia 1 ORAL daily; Durati on: - [facility] 12/30/2013 Active valACYclovir HCl 500MG 2 ORAL three time s each day; Duration: [facility] 01/20/2014 Active Aspirin EC 81MG 1 ORAL daily; Durati on: - [facility] 06/29/2011 Active Cozaar 50MG 1 ORAL daily; Durati on: - [facility] 11/13/2011 Active Premarin 0.625MG/GM 1g Vaginal every oth er day; Duration: - [facility] 01/20/2014 Active Accu-Chek Compact Test Drum ORAL; Duration: - [facility] 01/2012 Active SMZ-TMP DS 800-160MG 1 ORAL twice each d ay; Duration: [facility] 01/27/2014 Active Multivitamins 1 ORAL daily; Durati on: - [facility] 12/30/2013 Active metFORMIN HCl 500MG 1 ORAL twice daily; Duration: - [facility] 06/28/2012 Active Immunizations Vaccine Route Administration Date Status Comme nts Influenza, live, intranasal Intramuscular 04/19/2011 Pendi ng Influenza, live, intranasal Intramuscular 06/29/2011 Pendi ng Problems Problem Type SNOMED Code ICD Code Onset Dates Problem Status W/U Status Risk Notes Problem Candidal vulvovaginitis (50351356) Candidiasis of vulva and vagina (112.1) Active confirmed Other Problem Leiomyoma of uterus (63713661) Leiomyoma of uterus, unspecified (218.9) Active confirmed Other Problem Type II diabetes mellitus without complication (838362281) Diabetes mellitus without mention of complication, type II or unspecified type, not stated as uncontrolled (250.00) Active confirmed Major Problem Type II diabetes mellitus uncontrolled (093899088) Diabetes mellitus without mention of complication, type II or unspecified type, uncontrolled (250.02) Active confirmed Major Problem Hyperlipidemia (70869964) Other and unspecified hyperlipidemia (272.4) Active confirmed Major Problem Anemia (107126482) Unspecified anemia (285.9) Active confirmed Major Problem Essential hypertension (27736806) Unspecified essential hypertension (401.9) Active confirmed Major Problem Abnormal vaginal bleeding (451842226) Other disorder of menstruation and other abnormal bleeding from female genital tract (626.8) Active confirmed Major Problem Postmenopausal bleeding (72617493) Postmenopausal bleeding (627.1) Active confirmed Diag Problem Menopausal symptom (22767358) Symptomatic menopausal or female climacteric states (627.2) Active confirmed Major Problem Generalized osteoarthritis (disorder) (636263107) Generalized osteoarthrosis, unspecified site (715.00) Active confirmed Major Problem Joint pain (86692293) Pain in joint, site unspecified (719.40) Active confirmed Diag Problem General examination of patient (546940873) Routine general medical examination at health care facility (V70.0) Active confirmed Diag Problem Gynecological examination normal (496162974665298) Routine gynecological examination (V72.31) Active confirmed Major Problem Screening for malignant neoplasm of colon (082814502) Special screening for malignant neoplasms, colon (V76.51) Active confirmed Major Plan Of Treatment No Information Insurance Providers Payer Name Payer Address Payer Phone Subscriber Number Group Number Insured Name Patient Relationship to Insured Coverage Start Date Coverage End Date [facility] [address] [facility] [place] [id number] [phone] [id number] ARY HERNANDEZ Self - patient is the insured
--- OUTSIDE RECORDS SUMMARY | 2025-01-13 09:52 | XMS_ITS | Patient Health Record ---
Author Organization [facility] Address [address] [address] Care Team Providers Care Erp Specialist Name Role Phone Mery Franco MD Primary Care Provider Unavaila Alberto Hyas Unavailable [phone] Allergies Allergen (clinical drug ingredient) Drug/Non Drug [...] Mery Referring Provider Last Name Salvador Referred [facility] Referred Provider Alberto Guo Referred Address [address] Referred Provider Specialty Podiatry Referral Priority Routine [...] Not-Matteo ing MetroCream 0.75 % 1 application Shoes Salesperson ally Twice a day Not-Taking Aspirin 81 [...] Unknown 10/03/2024 Refused COVID-19 [employer] Manuel/Sabi Unknown 07/15/2021 Refused Social History Tobacco [...] Problem Acquired hammer toe of right foot (4605836093508 105) Other hammer toe(s) (acquired), right foot (M20.41) Active confirmed Response to treatment,I mprovement Problem Type 2 diabetes mellitus with peripheral angiopathy (018227110) Type 2 diabetes mellitus with diabetic peripheral angiopathy without gangrene (E11.51) Active confirmed Q7(A), Q8(2B), Q9(1B,2C) Problem Acquired hammer toe of left foot (5833533896342 103) Other hammer toe(s) (acquired), left foot (M20.42) Active confirmed Response to treatment,I mprovement Vital Signs Blood pressure diastolic 65 mm Hg 10/03/2024 Height 5ft in 10/03/2024 Blood pressure systolic 128 mm Hg 10/03/2024 Weight 138 lbs 10/03/2024 BMI 26.95 kg/m2 10/03/2024 Procedures Procedure Date Ordered Date Performed Result Body Sit e 25440-JEKRMXR NAIL, 6 OR MORE 02/01/2024 N/A 72124-RMUF SKIN LESIONS, OVER 4 02/01/2024 N/A 44173-OSLDBNB NAIL, 6 OR MORE 06/03/2024 N/A 25495-SDFU SKIN LESIONS, OVER 4 06/03/2024 N/A 22648-UWZLOMZ NAIL, 6 OR MORE 10/03/2024 N/A 38014-SZPU SKIN LESIONS, OVER 4 10/03/2024 N/A Encounters Encounter Location Date Provider Diagnosis [facility] [address] [place] [address] 02/01/2024 Alberto Guo Type 2 diabetes mellitus with diabetic peripheral angiopathy without gangrene E11.51 ; Tinea unguium B35.1 ; Pain in right toe(s) M79.674 ; Pain in left toe(s) M79.675 ; Other hammer toe(s) (acquired), left foot M20.42 and Other hammer toe(s) (acquired), right foot M20.[address] [facility] [address] 06/03/2024 Alberto Guo Type 2 diabetes mellitus with diabetic peripheral angiopathy without gangrene E11.51 ; Tinea unguium B35.1 ; Pain in right toe(s) M79.674 ; Pain in left toe(s) M79.675 ; Other hammer toe(s) (acquired), right foot M20.41 and Other hammer toe(s) (acquired), left foot M20.42 [facility] [address] 10/03/2024 Alberto Guo Type 2 diabetes mellitus [...] Treatment Pending Test Test Name Order Date 48390-OYXIHYM NAIL, 6 OR MORE 06/05/2013 72299-BDRFNPO NAIL, 6 OR MORE 08/28/2013 33567-YFQCQYU NAIL, 6 OR MORE 12/03/2013 74389-PLXAGWV NAIL, 6 OR MORE 03/04/2014 67259-RDOUNBD NAIL, 6 OR MORE 12/24/2020 19106-YFLGOSF NAIL, 6 OR MORE 07/15/2021 63139-SJBAZKG NAIL, 6 OR MORE 02/21/2022 22301-NHISGSV NAIL, 6 OR MORE 09/01/2022 41509-FVGLJIO NAIL, 6 OR MORE 01/26/2023 93249-HGFWMUO NAIL, 6 OR MORE 2023 88065-QTHGXVT NAIL, 6 OR MORE 02/01/2024 40417-DQRCWXR NAIL, 6 OR MORE 06/03/2024 03039-XMCEMGK NAIL, 6 OR MORE 10/03/2024 17840-VHRV SKIN LESIONS, OVER 4 10/04/19 25 76077-OFWO SKIN LESIONS, OVER 4 06/03/19 25 67641-WTTW SKIN LESIONS, OVER 4 02/01/20 24 94269-XRZO SKIN LESIONS, OVER 4 07/27/19 24 64417-ENNZ SKIN LESIONS, OVER 4 01/27/20 23 70963-VKKE SKIN LESIONS, OVER 4 09/02/19 23 02239-HYWQ SKIN LESIONS, OVER 4 02/22/20 22 11137-KSFW SKIN LESIONS, OVER 4 03/19/20 19 Next Appt Details Provider Name:Alberto Harley Guo , 02/06/2025 08:45:00 AM, [address] [place], [address], Insurance Providers Payer Name Payer Address Payer Phone Subscriber Number Group Number Insured Name Patient Relationship to Insured Coverage Start Date Coverage End Date [employer] [address] [place] [address] [phone] [id number] Edwardo Borjas Self - patient is the insured 4 Medical (General) History Medical History History ICD Code asthma type II diabetes Gall bladder problems-out Hypertension Hyperlipidemia covid-19 Surgical History Surgery Date(Month/Year) gall bladder 1979
--- OUTSIDE RECORDS SUMMARY | 2025-01-13 09:52 | XMS_ITS | Patient Health Record ---
Author Organization [facility] Address [address] [place] [address] Care Team Providers Care Alarm Investigator Name Role Phone Mery Franco MD Primary Care Provider Adolfo Broussard Unavailable [phone] Allergies Allergen (clinical drug ingredient) Drug/Non Drug Allergy documented on EMR Reaction Allergy Type Onset Date Status diphenhydramine Antihistamine Unknown Drug Allergy Active Results Component Value Reference Range Notes Ferritin Reviewed date:04/24/2024 09:37:17 PM Interpretation: Performing Lab:[facility], [address] [place] [phone] Notes/Report: Ferritin 15 10-250 ng/mL Complete Blood Count Auto Di ff Reviewed date:04/24/2024 09:38:06 PM Interpretation: Performing Lab:[facility], [address] [place] [phone] Notes/Report: White Blood Count 5.9 4.8-10.8 X10*3/uL [...] PROFILE Reviewed date:04/24/2024 09:37:46 PM Interpretation: Performing Lab:[facility], [address] [place] [phone] Notes/Report: Iron 57 30-160 mcg/dL Total Iron Binding Capacity 315 228-428 mcg/d L Percent Iron Saturation 18 15-50 % Unsaturated Iron Binding 258 Glucose, Whole Blood Reviewed date:05/07/2024 12:45:53 PM Interpretation: Performing Lab:[facility], [address] [place] [phone] Notes/Report: Glucose, Whole Blood 158 60-115 mg/dL METER # : [id number] Pathology (Not yet reviewed by provider) Interpretation: Performing Lab:[facility], [address] [place] [phone] Notes/Report: Reason For Referral No Information Medications [...] Problem Status W/U Status Risk Notes Problem 823586847 Encounter for screening for malignant neoplasm of colon (Z12.11) Active confirmed Problem 291923963 History of adenomatous polyp of colon (Z86.010) Active confirmed Problem Iron deficiency anemia (74538495) Iron deficiency anemia (D50.9) Active confirmed Problem 099612233 Preprocedural examination (Z01.818) Active confirmed Problem 532437766 Aspirin long-ter m use (Z79.82) Active confirmed Vital Signs Temperature 97.5 degrees Fahrenheit 04/23/2024 Blood pressure diastolic 77 mm Hg 09/04/2024 Height 59.25 in 09/04/2024 Blood pressure systolic 111 mm Hg 09/04/2024 Weight 141 lbs 09/04/2024 BMI 28.24 kg/m2 09/04/2024 Encounters Encounter Location Date Provider Diagnosis [facility] [address] [place] [phone] 05/07/2024 Adolfo Dawn Small bowel mass K63 .89 ; Diverticulosis of colon K57.30 ; Internal hemorrhoids K64.8 and Gastritis K29.70 [facility] [address] [place] [phone] 04/23/2024 Adolfo Dawn Iron deficiency anem ia D50.9 ; History of adenomatous polyp of colon Z86.010 and Aspirin long-term use Z79.82 [facility] [address] [place] [phone] 09/04/2024 Adolfo Dawn Iron deficiency anem ia D50.9 [facility] [address] [place] [phone] 04/28/2024 Adolfo Dawn [facility] [address] [place] [phone] 05/06/2024 Adolfo Dawn [facility] [address] [place] [phone] 05/08/2024 Adolfo Dawn Iron deficiency anem ia [...] Iron deficiency anemia (ICD-10 - D50.9) Overall, Edwadro appears quite well. She is not having any particular GI symptoms other than some loose stools in the morning. I did not see any evidence of a colitis at the time of the colonoscopy but I will obtain a copy of her [facility] ER CT scan and laboratory reports. [...] in your stomach at this time. Need [facility] ER labs and CT scan Overall, Edwardo appears quite well. She is not having any particular GI symptoms other than some loose stools in the morning. I did not see any evidence of a colitis at the time of the colonoscopy but I will obtain a copy of her [facility] ER CT scan and laboratory reports. [...] Insured Coverage Start Date Coverage End Date [facility] [address] [place] [address] [id number] ZAINA LINO EDWARDO Self - patient is the insured Medical (General) History Medical History History ICD Code History of ulcers in her 20's Colonoscopy in 2001--- tubul ar adenoma and hyperplastic polyps removed in 2001 HTN NIDDM Herniated discs--lower back Denies [place],CVA,renal disease Colonoscopy 01/2012--hyperpl astic polyp, diverticulosis, internal [...]
--- OUTSIDE RECORDS SUMMARY | 2025-01-13 09:52 | XMS_ITS | Clinical Summary ---
Author Organization [facility] Address [address] [place] [address] Phone Care Team Providers Care Fiscal Analyst Name Role Phone Mery Franco MD Primary Care Provider [phone] Allergies No known active allergies Medications No known medications Active Problems No known active problems Medical History Medical History Date Comments Diabetes mellitus ([facility] V24, [facility] V28) Asthma Social History Tobacco Use Types [...] Last Done Comments Breast Cancer Screening 1952 Colorectal Cancer Screening: Colonoscopy 1952 Diabetes: Annual Foot Exam 1962 Diabetes: Annual Retina Eye Exam 1962 DTaP,Tdap,and Td Vaccines (1 - Tdap) 07/28/1971 Pneumococcal Vaccine: 50+ Ye ars (1 of 1 - PCV) 2002 Zoster Vaccines (1 of 2) 2002 Depression Screening 04/16/2024 Cholesterol Screening (Lipid Panel) 07/04/2024 Diabetes: Annual Urine Albumin-Creatinine Ratio (uACR) [...] mmol/L LAB CHEMISTRY METHOD 07/04/2024 2:27 PM [facility] Potassium 4.2 3.5 - 5.5 mmol/L LAB CHEMISTRY METHOD 07/04/2024 2:27 PM [facility] Chloride 107 96 - 110 mmol/L LAB CHEMISTRY METHOD 07/04/2024 2:27 PM [facility] CO2 25 21 - 32 mmol/L LAB CHEMISTRY METHOD 07/04/2024 2:27 PM [facility] Anion Gap 8 3 - 11 LAB CHEMISTRY METHOD 07/04/2024 2:27 PM [facility] Glucose 118(H) 70 - 100 mg/dL LAB CHEMISTRY METHOD 07/04/2024 2:27 PM [facility] BUN 13 5 - 25 mg/dL LAB CHEMISTRY METHOD 07/04/2024 2:27 PM [facility] Creatinine 0.65 0.50 - 1.10 mg/dL LAB CHEMISTRY METHOD 07/04/2024 2:27 PM [facility] eGFR 94 >=60 mL/min/1. 73m2 LAB CHEMISTRY METHOD 07/04/2024 2:27 PM [facility] Comment:Calculation based on the Chronic Kidney Disease Epidemiology Collaboration (CKD-EPI) equation refit without adjustment for race. BUN/Creatinine Ratio 20.0 LAB CHEMISTRY METHOD 07/04/2024 2:27 PM [facility] Calcium 9.6 8.5 - 10.5 mg/dL LAB CHEMISTRY METHOD 07/04/2024 2:27 PM [facility] AST (SGOT) 13 10 - 42 unit/L LAB CHEMISTRY METHOD 07/04/2024 2:27 PM EDT [facility] ALT (SGPT) 21 10 - 60 unit/L LAB CHEMISTRY METHOD 07/04/2024 2:27 PM EDT [facility] Alkaline Phosphatase 73 42 - 121 unit/L LAB CHEMISTRY METHOD 07/04/2024 2:27 PM EDT [facility] Total Protein 6.7 6.0 - 8.0 g/dL LAB CHEMISTRY METHOD 07/04/2024 2:27 PM EDT [facility] Albumin 3.4 3.2 - 5.0 g/dL LAB CHEMISTRY METHOD 07/04/2024 2:27 PM EDT [facility] Total Bilirubin 0.4 0.0 - 1.4 mg/dL LAB CHEMISTRY METHOD 07/04/2024 2:27 PM EDT [facility] Blood Venous blood specimen / Unknown Venipuncture / Unknown 07/04/2024 1:14 PM EDT 07/04/2024 1:24 PM EDT Gui Aguilar MD LAB BLOOD ORDERABLES Final Resu lt [facility] [address] [place] [address], from Last 3 Months or Most Recently Relevant to Health Maintenance Insurance [employer] Care Teams Fiscal Analyst Relationship Specialty Start Date End Date Mery Franco MD [address] [place] [id number] PCP - General Internal Medicine 07/04/24
== END 2025-01-13 15:02 | disposition home or self-care (01) ==
LOC: HO.HMCC 09:08
PROVIDERS: PCP Internal Medicine; Visit Provider Internal Medicine
DX: D23.9 Other benign neoplasm of skin, unspecified (principal); E11.9 Type 2 diabetes mellitus without complications; E78.5 Hyperlipidemia, unspecified

== ENCOUNTER → 2025-01-13 09:07 | Outpatient (BNVA) | payer MEDICARE, SELFPAY | PROVIDERS: PCP Internal Medicine; Visit Provider Internal Medicine | DX: E11.9 Type 2 diabetes mellitus without complications (principal); D23.9 Other benign neoplasm of skin, unspecified; E78.5 Hyperlipidemia, unspecified; E55.9 Vitamin D deficiency, unspecified | CPT/HCPCS: 96127; 99212 ==